=== PATIENT | female | born 1950 | race Caucasian/White ===

== ENCOUNTER 2022-04-20 11:22 | Day surgery (SDC) | payer MEDICARE ==
[2022-04-20] MEDS ORDERED: LIDOCAINE HCL/PF 3.5% OPTH GEL ONE (11:40)
[2022-04-20] MEDS ORDERED: NA CHLORIDE 0.9% 500 ML ONE (11:40)
[2022-04-20] MEDS ORDERED: MOXIFLOXACIN HCL 0.5% 3ML OPTH OPTH ONE (11:43)
[2022-04-20] MEDS: CYCLOPENTOLATE 1% OPTH 2 ML ONE ×3 (11:45→11:55)
[2022-04-20] MEDS: PHENYLEPHRINE 2.5% OPTH 2 ML ONE ×3 (11:45→11:55)
[2022-04-20] MEDS ORDERED: MOXIFLOXACIN HCL 10 DROPS/ML **OR USE OPTH ONE (12:24)
[2022-04-20] MEDS ORDERED: BSS OPTHALMIC SOL 15 ML OPTH ONE (12:24)
[2022-04-20] MEDS ORDERED: LIDOCAINE 1% MPF 2 ML AMPULE ONE (12:24)
[2022-04-20] MEDS ORDERED: EPINEPHRINE/PF 1 MG/ML AMP ONE (12:24)
[2022-04-20] MEDS ORDERED: DUOVISC 1 KIT OPTH ONE (12:25)
[2022-04-20] MEDS ORDERED: BALANCED SALT IRRIG PLAIN 500 ML IRR ONE (12:25)
[2022-04-20] MEDS ORDERED: POVIDONE-IODINE 5% EYE DROPS ONE (12:26)
[2022-04-20] MEDS ORDERED: LIDOCAINE 2%-JELLY **30 ML TUBE TOP ONE (12:45)
[2022-04-20] MEDS ORDERED: FENTANYL CITR 100 MCG/2 ML ONE (12:56)
[2022-04-20 14:08] VITALS: BP 149/62; TEMP 96.3; O2SAT 99
--- NOTE | 2022-04-21 00:14 | OP ---
Date of Procedure: 04/20/2022 Surgeon: Carolin Hawkins MD Anesthesiologist: Zita Marte CRNA and Sagar Melendez MD - Anesthesia for Cataract Surgery Preoperative Diagnosis: Combined form of cataract, left eye. Operation Performed: Phacoemulsification with intraocular lens implant, left eye. Anesthesia: Topical anesthesia. Complications: None. Description Of Procedure: In the operating room the patient was prepped and draped in the usual sterile fashion for ophthalmic surgery. A lid speculum was placed in the left eye. Two paracentesis sites were made superiorly and inferiorly in the limbal cornea. Lidocaine 1% preservative free then Viscoat were placed in the anterior chamber. A keratome was used to enter the anterior chamber. A 360 degree capsulotomy was performed with utrata forceps. The lens was hydrodissected with BSS and rotated freely. The lens was removed with a chop technique. 2.84 phaco CDE was used to remove the lens. Residual cortex was removed with the irrigation and aspiration. Provisc was placed in the capsular bag. A DCB00 +23.5 lens was placed in the capsular bag without complications. Irrigation and aspiration was used to remove residual viscoelastic. The paracentesis sites were hydrated with BSS. The wound and paracentesis sites were inspected and found to be watertight. Vigamox 0.07 cc was placed intracamerally at the end of the procedure. The eye was irrigated with balanced salt solution. The eye was patched with a soft cotton patch and Hall metal shield. The patient was returned to day surgery in good condition. Comments: Discharge Instructions: Ms. Brown is discharged to home in good condition and is to follow up with Dr. Hawkins this afternoon in the office and then in the morning. VIRA/THEODORE Voice ID: [id number] Report ID: [id number]
== END 2022-04-20 13:58 | disposition home or self-care (01) ==
LOC: OR 11:22
PROVIDERS: ATTEND Ophthalmology Retina Specialist
PROC: 08RK3JZ Replacement of Left Lens with Synthetic Substitute, Percutaneous Approach (ICD-10-PCS; principal; 2022-04-20 13:00)
DX: H25.812 Combined forms of age-related cataract, left eye (principal); Z20.822 Contact with and (suspected) exposure to COVID-19
CPT/HCPCS: 82947; 66984; U0003; J0171; J3010; J7040

== ENCOUNTER 2024-01-31 14:46 | Emergency (ER) | payer MEDICARE ==
--- OUTSIDE RECORDS SUMMARY | 2024-01-31 14:54 | XMS REPORT | Continuity of Care Document ---
Author Name Unknown Address [address] [facility] [address] [place] [address] [facility] Address [address] [facility] [address] [place] [address] Care Team Providers Care Shop Estimator Name Role Phone BRENDA BLANTON Primary Care Physician Unavailab Brenda Araya Attending Clinician Unavailable KUSHAL RIVAS Attending Clinician Unavailable [email or web address] Attending Clinician Unavaila Kushal Skelton DDS Attending Clinician [phone] Keith Benites RN Attending Clinician Unavail able RADHA MURRIETA Attending Clinician Unavailable Radha Murrieta MD Attending Clinician [phone] Doctor Unassigned, Sublimity Attending Clinician U MELINDA Torres Attending Clinician UnavailMelinda York Attending Clinician [phone] Evelyn Hanson Attending Clinician [phone] Ogbechie_L Attending Clinician Unavailable OLEGARIO CASTILLO Attending Clinician Unavailable Olegario Castillo NP Attending Clinician [phone] LARRY_R Attending Clinician Unavailable Jelani Juarez Attending Clinician [phone] Jonn Craft Attending Clinician [phone] CÉSAR RODRIGUEZ M.D. Attending Clinician U KUSHAL [place] Admitting Clinician Unavailable [email or web address] Admitting Clinician Unavaila myranda Rivas DDS, [facility] Admitting Clinician [phone] MELINDA FLORES Admitting Clinician Unavaila ble Valentin_L Admitting Clinician Unavailable OLEGARIO CASTILLO Admitting Clinician Unavailable LAVERNE Admitting Clinician Unavailable Payers Payer Name Policy Type Policy Number Effective Date Expirati on Date Source [facility] MEDICARE ADVANTAGE PLAN [id number] 2022 00:00:00 [facility] (MEDICARE REPLACEMENT HMO) [id number] 2022 00:00:00 [employer] - MEDICARE COMPLETE (MEDICARE REPLACEMENT HMO) [id number] Problems Condition Name Condition Details Condition Category Status Onset Date Resolution Date Last Treatment Date Treating Clinician Comments Source Skin lesion of scalp Skin lesion of scalp Disease Active 04-13 00:00: 00 Overview: Formattin g of this note might be different from the original. Added automatic ally from request for surgery [id number] [facility] Scalp mass Scalp mass Disease Active 04-01 00:00: 00 [facility] Sublingual abscess Sublingual abscess Disease Active 03-30 00:00: 00 [facility] Generalize d osteoarthr itis of hand Generalize d osteoarthr itis of hand Disease Active 01-07 00:00: 00 [facility] Osteochond shaista Osteochond shaista Problem [facility] Arthritis of left knee Arthritis of Left Knee Problem Active 06-13 00:00: 00 [place] [facility] Mixed anxiety and depressive disorder Mixed Anxiety and Depressive Disorder Problem Active 2018-11 00:00: 00 [facility] Hypertensi ve disorder Hypertensi ve Disorder Problem Active 2018-11 00:00: 00 [facility] No known active problems No known active problems Disease [facility] [id number] Diabetic polyneurop athy associated with type 2 diabetes mellitus Problem [facility] [id number] Reactive depression Problem [facility] Atrophy of vagina Atrophy of vagina Problem [facility] [id number] Mixed stress and urge urinary incontinen ce Problem [facility] [id number] Body mass index (BMI) of 40.1 to 44.9 in adult Problem [facility] [id number] Allergic rhinitis, unspecifie d seasonalit y, unspecifie d trigger Problem [facility] [id number] History of squamous cell carcinoma of skin Problem [facility] [id number] Sleep disorder Problem [facility] [id number] Fatigue, unspecifie d type Problem [facility] [id number] Mixed hyperlipid emia Problem [facility] [id number] Essential (primary) hypertensi on Problem [facility] [id number] Anxiety Problem [facility] [id number] Type 2 diabetes mellitus with hyperglyce shira, without long-term current use of insulin Problem [facility] [id number] Other chronic pain Problem [facility] [id number] Low back pain Problem [facility] [id number] Morbid (severe) obesity due to excess calories Problem [facility] [id number] 05 Type 2 diabetes mellitus with diabetic chronic kidney disease Problem [facility] [id number] Chronic kidney disease, stage 3 unspecifie d Problem [facility] History of arthritis [facility] of back pain History of back pain [facility] History of gallbladde r disease History of gallbladde r disease Problem [facility] History of Hernia History of Hernia Problem [facility] History of pneumonia History of pneumonia [facility] History of staphyloco ccal infection History of staphyloco ccal infection Problem [facility] History of Tumors History of Tumors [facility] Left knee pain Left knee pain Problem [facility] Primary localized osteoarthr itis of left knee Primary localized osteoarthr itis of left knee Problem [facility] Allergies, Adverse Reactions, Alerts Allergy Name Allergy Type Status Severity Reaction(s) Onset Date Inactive Date Treating Clinician Comments Source CODEINE DRUG INGREDI Active Unknown-Cmnt 06-13 00:00: 00 [facility] Codeine Drug Allergy Active Unknown - See comments 06-13 00:00: 00 [facility] Meperidi ne Hcl Propensi ty to adverse reaction s Active Nausea and/or Vomiting 07-24 00:00: 00 [facility] MEPERIDI NE HCL DRUG INGREDI Active N/V 07-24 00:00: 00 [facility] PENICILL IN DRUG INGREDI Active Rash 07-24 00:00: 00 [facility] Penicill in Propensi ty to adverse reaction s Active Rash 07-24 00:00: 00 [facility] Penicill in Penicill in Active Unknown [facility] meperidi ne meperidi ne Active Unknown [facility] Demerol Allergy to substanc e Active [facility] PENICILL INS Allergy to substanc e Active [facility] Codeine Allergy to substanc e Active [facility] ibuprofe n drug allergy [facility] Penicill ins drug allergy Active [facility] Social History Social Habit Start Date Stop Date Quantity Comments Source History SDOH Alcohol Std Drinks [facility] History SDOH Alcohol Binge [facility] History SDOH Social Connections Get Together [facility] History SDOH Social Connections Religion [facility] History SDOH Social Connections Membership [facility] History SDOH Social Connections Meetings [facility] History of Tobacco Use [facility] Sex Assigned At [facility] History SDOH Alcohol Frequency 2023-03-31 00:00:00 2023-03-31 00:00:00 1 [facility] History SDOH Social Connections Phone 2023-03-31 00:00:00 2023-03-31 00:00:00 5 [facility] History SDOH Social Connections Living 2023-03-31 00:00:00 2023-03-31 00:00:00 4 [facility] History SDOH Physical Activity DPW 2023-03-31 00:00:00 2023-03-31 00:00:00 0 [facility] History SDOH Physical Activity MPS 2023-03-31 00:00:00 2023-03-31 00:00:00 0 [facility] History SDOH Financial 2023-03-31 00:00:00 2023-03-31 00:00:00 5 [facility] History SDOH Food Worry 2023-03-31 00:00:00 2023-03-31 00:00:00 1 [facility] History SDOH Food Scarcity 2023-03-31 00:00:00 2023-03-31 00:00:00 1 [facility] History SDOH Transport Med 2023-03-31 00:00:00 2023-03-31 00:00:00 2 [facility] History SDOH Transport Non-Med 2023-03-31 00:00:00 2023-03-31 00:00:00 2 [facility] History SDOH Housing Unable to Pay 2023-03-31 00:00:00 2023-03-31 00:00:00 2 [facility] History SDOH Housing Places Lived 2023-03-31 00:00:00 2023-03-31 00:00:00 1 [facility] History SDOH Housing Homeless Last Year 2023-03-31 00:00:00 2023-03-31 00:00:00 2 [facility] Exposure to SARS-CoV-2 (event) 2023-03-20 00:00:00 2023-03-30 22:18:00 Not sure [facility] Tobacco use and exposure 2023-03-30 00:00:00 2023-03-30 00:00:00 Smokeless tobacco non-user [facility] Smoking Status Start Date Stop Date Source Never smoked tobacco [facility] Tobacco smoking consumption unknown [facility] Medications Ordered Medication Name Filled Medication Name Start Date Stop Date Current Medication? Ordering Clinician Indication Dosage Frequency Signature (SIG) Comments Components Source Ozempic (1 MG/DOSE) 4 MG/3ML Ozempic (1 MG/DOSE) 4 MG/3ML 2022-11 0-18 00:00: 00 No Ozempic (1 MG/DOSE) 4 MG/3ML Ozempic (1 MG/DOSE) 4 MG/3ML Ozempic (1 MG/DOSE) 4 MG/3ML 2022-11 0-18 00:00: 00 No Ozempic (1 MG/DOSE) 4 MG/3ML Ozempic (1 MG/DOSE) 4 MG/3ML Ozempic (1 MG/DOSE) 4 MG/3ML 2022-11 0-18 00:00: 00 No Ozempic (1 MG/DOSE) 4 MG/3ML Ozempic (1 MG/DOSE) 4 MG/3ML Ozempic (1 MG/DOSE) 4 MG/3ML 1 0-18 00:00: 00 No Ozempic (1 MG/DOSE) 4 MG/3ML Ozempic (1 MG/DOSE) 4 MG/3ML Ozempic (1 MG/DOSE) 4 MG/3ML 2022-11 0-18 00:00: 00 No Ozempic (1 MG/DOSE) 4 MG/3ML Ozempic (1 MG/DOSE) 4 MG/3ML Ozempic (1 MG/DOSE) 4 MG/3ML 2022-1 0-18 00:00: 00 No Ozempic (1 MG/DOSE) 4 MG/3ML Ozempic (1 MG/DOSE) 4 MG/3ML Ozempic (1 MG/DOSE) 4 MG/3ML 1 0-18 00:00: 00 No Ozempic (1 MG/DOSE) 4 MG/3ML famotidine 20 mg tablet 2023-0 6-13 13:22: 22 Yes 1 tablet at bedtime as needed Orally Once a day [facility] hydrOXYzine 25 mg capsule 04-13 13:22: 22 Yes 1 capsule as needed Orally every 12 hrs PRN Itching [facility] famotidine 20 mg tablet 04-13 13:22: 22 Yes 1 tablet at bedtime as needed Orally Once a day [facility] hydrOXYzine 25 mg capsule 04-13 13:22: 22 Yes 1 capsule as needed Orally every 12 hrs PRN Itching [facility] metformin ER 750 mg 24 hr tablet 04-13 13:21: 43 Yes 1 tablet with evening meal Orally Once a day for 90 days [facility] metformin ER 750 mg 24 hr tablet 04-13 13:21: 43 Yes 1 tablet with evening meal Orally Once a day for 90 days [facility] carvediloL 6.25 mg tablet 04-13 13:21: 20 Yes carvedilol 6.25 mg tablet TAKE ONE TABLET BY MOUTH TWICE A DAY [facility] lisinopriL 40 mg tablet 04-13 13:21: 20 Yes lisinopril 40 mg tablet TAKE ONE TABLET BY MOUTH DAILY [facility] LORazepam 0.5 mg tablet 04-13 13:21: 20 Yes lorazepam 0.5 mg tablet PRN [facility] venlafaxine XR 75 mg 24 hr capsule 04-13 13:21: 20 Yes venlafaxin e ER 75 mg capsule,ex tended release 24 hr TAKE ONE CAPSULE BY MOUTH DAILY [facility] carvediloL 6.25 mg tablet 04-13 13:21: 20 Yes carvedilol 6.25 mg tablet TAKE ONE TABLET BY MOUTH TWICE A DAY [facility] lisinopriL 40 mg tablet 04-13 13:21: 20 Yes lisinopril 40 mg tablet TAKE ONE TABLET BY MOUTH DAILY [facility] LORazepam 0.5 mg tablet 04-13 13:21: 20 Yes lorazepam 0.5 mg tablet PRN [facility] venlafaxine XR 75 mg 24 hr capsule 04-13 13:21: 20 Yes venlafaxin e ER 75 mg capsule,ex tended release 24 hr TAKE ONE CAPSULE BY MOUTH DAILY [facility] amLODIPine (NORVASC) tablet 5 mg 04-04 14:00: 00 Yes 5mg 5 mg, Oral, DAILY, First dose on 04/04/23 at 0900, Until Discontinu ed, Routine [facility] carvediloL 6.25 mg tablet 04-03 16:57: 28 Yes carvedilol 6.25 mg tablet TAKE ONE TABLET BY MOUTH TWICE A DAY [facility] lisinopriL 40 mg tablet 04-03 16:57: 28 Yes lisinopril 40 mg tablet TAKE ONE TABLET BY MOUTH DAILY [facility] LORazepam 0.5 mg tablet 04-03 16:57: 28 Yes lorazepam 0.5 mg tablet PRN [facility] venlafaxine XR 75 mg 24 hr capsule 04-03 16:57: 28 Yes venlafaxin e ER 75 mg capsule,ex tended release 24 hr TAKE ONE CAPSULE BY MOUTH DAILY [facility] carvediloL 6.25 mg tablet 04-03 16:57: 28 Yes carvedilol 6.25 mg tablet TAKE ONE TABLET BY MOUTH TWICE A DAY [facility] lisinopriL 40 mg tablet 04-03 16:57: 28 Yes lisinopril 40 mg tablet TAKE ONE TABLET BY MOUTH DAILY [facility] LORazepam 0.5 mg tablet 04-03 16:57: 28 Yes lorazepam 0.5 mg tablet PRN [facility] venlafaxine XR 75 mg 24 hr capsule 04-03 16:57: 28 Yes venlafaxin e ER 75 mg capsule,ex tended release 24 hr TAKE ONE CAPSULE BY MOUTH DAILY [facility] vancomycin (VANCOCIN) 1,500 mg in NaCl 0.9% (NS) 500 mL VIAL-MATE IV piggyback 04-03 13:30: 00 04-07 01:29 :00 No 15mg/kg 1,500 mg (rounded from 1,701 mg = 15 mg/kg ?113.4 kg), IV Piggyback, Q12H ABX, 7 doses, First dose (after last reorder) on 04/03/23 at 0830, Last dose on Wed04/06/23 at 0830, Administer over 90 Minutes, 500 mL
Reas on for Anti-Infec tive: Surgical Prophylaxi s
Surgi jesús Prophylaxi s: Oral and/or Maxillofac ial
Dur ation of therapy: within 24 hours of surgery [facility] KCL (KLOR-CON M20) tablet 40 mEq 04-03 13:00: 00 04-03 14:30 :00 No 40meq 40 mEq, Oral, ONCE, 1 dose, On Wed04/03/23 at 0800, Routine [facility] amLODIPine 5 mg tablet 04-03 00:00: 00 05-04 04:59 :00 No [id number] 5mg Take 1 tablet by mouth in the morning for 30 days. [facility] amLODIPine 5 mg tablet 04-03 00:00: 00 05-04 04:59 :00 No [id number] 5mg Take 1 tablet by mouth in the morning for 30 days. [facility] amLODIPine 5 mg tablet 04-03 00:00: 00 05-04 04:59 :00 No [id number] 5mg Take 1 tablet by mouth in the morning for 30 days. [facility] amLODIPine 5 mg tablet 04-03 00:00: 00 05-04 04:59 :00 No [id number] 5mg Take 1 tablet by mouth in the morning for 30 days. [facility] chlorhexidi ne 0.12 % mouthwash 04-03 00:00: 00 04-11 04:59 :00 No [id number] 15mL Swish and spit out 15 mL in the morning and 15 mL in the evening. Do all this for 7 days. [facility] clindamycin 300 mg capsule 04-03 00:00: 00 04-11 04:59 :00 No [id number] 300mg Take 1 capsule by mouth 4 (four) times daily for 7 days. [facility] metroNIDAZO LE (FLAGYL) 500 mg tablet 04-03 00:00: 00 04-11 04:59 :00 No [id number] 500mg Take 1 tablet by mouth every 12 (twelve) hours for 7 days. [facility] chlorhexidi ne 0.12 % mouthwash 04-03 00:00: 00 04-11 04:59 :00 No [id number] 15mL Swish and spit out 15 mL in the morning and 15 mL in the evening. Do all this for 7 days. [facility] clindamycin 300 mg capsule 04-03 00:00: 00 04-11 04:59 :00 No [id number] 300mg Take 1 capsule by mouth 4 (four) times daily for 7 days. [facility] metroNIDAZO LE (FLAGYL) 500 mg tablet 04-03 00:00: 00 04-11 04:59 :00 No [id number] 500mg Take 1 tablet by mouth every 12 (twelve) hours for 7 days. [facility] HYDROcodone -acetaminop hen 5-325 mg tablet 04-03 00:00: 00 04-08 04:59 :00 No [id number] 1{tbl} Take 1 tablet by mouth every 6 (six) hours as needed for Pain (scale 7-10) for up to 4 days. Indication s: acute pain [facility] HYDROcodone -acetaminop hen 5-325 mg tablet 04-03 00:00: 00 04-08 04:59 :00 No [id number] 1{tbl} Take 1 tablet by mouth every 6 (six) hours as needed for Pain (scale 7-10) for up to 4 days. Indication s: acute pain [facility] carvedilol (COREG) 1.25 mg/mL oral suspension 6.25 mg 04-02 22:00: 00 Yes 6.25mg 6.25 mg, Oral, BID MEALS, First dose (after last modificati on) on Wed04/02/23 at 1700, Until Discontinu ed, Routine [facility] carvedilol (COREG) 1.25 mg/mL oral suspension 6.25 mg 04-02 22:00: 00 Yes 6.25mg 6.25 mg, Oral, BID MEALS, First dose (after last modificati on) on Wed04/02/23 at 1700, Until Discontinu ed, Routine [facility] lisinopriL (PRINIVIL,Z ESTRIL) tablet 40 mg 04-02 17:45: 00 Yes 40mg 40 mg, Oral, DAILY, First dose (after last modificati on) on Wed04/02/23 at 1245, Until Discontinu ed, Routine [facility] lisinopriL (PRINIVIL,Z ESTRIL) tablet 40 mg 04-02 17:45: 00 Yes 40mg 40 mg, Oral, DAILY, First dose (after last modificati on) on Wed04/02/23 at 1245, Until Discontinu ed, Routine [facility] iopamidol (ISOVUE 370-500 mL) injection 80 mL 04-01 23:00: 00 04-01 22:49 :00 No [id number] 80mL 80 mL, Intravenou s, ONCE, 1 dose, On Wed04/01/23 at 1800, Routine [facility] hydralAZINE (APRESOLINE ) injection 5 mg 04-01 22:03: 07 Yes 5mg 5 mg, Slow IV Push, Q4HPRN, Starting on Wed04/01/23 at 1703, Until Discontinu ed, Routine, DBP=>100; SBP=>180 [facility] hydralAZINE (APRESOLINE ) injection 5 mg 04-01 22:03: 07 Yes 5mg 5 mg, Slow IV Push, Q4HPRN, Starting on Wed04/01/23 at 1703, Until Discontinu ed, Routine, DBP=>100; SBP=>180 [facility] labetaloL (NORMODYNE) injection 20 mg 04-01 20:40: 00 04-01 20:44 :00 No 20mg 20 mg, Slow IV Push, ONCE, 1 dose, On Wed04/01/23 at 1545, NILS [facility] HYDROcodone -acetaminop hen (NORCO 5) 5-325 mg tablet 1 tablet 04-01 19:45: 00 04-01 21:00 :00 No 1{tbl} 1 tablet, Oral, ONCE, 1 dose, On Wed04/01/23 at 1445, Routine, PACU [facility] FENTanyl PF (SUBLIMAZE (PF)) injection 25 mcg 04-01 19:32: 39 04-01 20:30 :00 No 25ug 25 mcg, Slow IV Push, Q5MIN PRN, 4 doses, Starting on Wed04/01/23 at 1432, Until Wed04/01/23 at 1530, Routine, Pain (scale 4-6), PACU [facility] carvedilol (COREG) 1.25 mg/mL oral suspension 12.5 mg 03-31 22:00: 00 04-02 17:42 :31 No 12.5mg 12.5 mg, Oral, BID MEALS, First dose (after last modificati on) on Wed03/31/23 at 1700, Until Discontinu ed, Routine [facility] proMETHazin e (PHENERGAN) 12.5 mg in NS 50 mL IV piggyback (CNR) 03-31 17:41: 46 Yes 12.5mg 12.5 mg, IV Piggyback, at 200 mL/hr Administer over 15 Minutes, Q4HPRN, Starting on Wed03/31/23 at 1241, Until Discontinu ed, Routine, N/V unresponsi ve to Ondansetro n [facility] proMETHazin e (PHENERGAN) 12.5 mg in NS 50 mL IV piggyback (CNR) 03-31 17:41: 46 Yes 12.5mg 12.5 mg, IV Piggyback, at 200 mL/hr Administer over 15 Minutes, Q4HPRN, Starting on Wed03/31/23 at 1241, Until Discontinu ed, Routine, N/V unresponsi ve to Ondansetro n [facility] venlafaxine XR (EFFEXOR XR) 24 hr capsule 37.5 mg 03-31 13:00: 00 Yes 37.5mg 37.5 mg, Oral, QAM WITH BREAKFAST, First dose on Wed03/31/23 at 0800, Until Discontinu ed, Routine [facility] venlafaxine XR (EFFEXOR XR) 24 hr capsule 37.5 mg 03-31 13:00: 00 Yes 37.5mg 37.5 mg, Oral, QAM WITH BREAKFAST, First dose on Wed03/31/23 at 0800, Until Discontinu ed, Routine [facility] metroNIDAZO LE in NaCl (iso-os) (FLAGYL I.V.) RTU IV infusion 500 mg 03-31 03:30: 00 04-07 03:29 :00 No 500mg 500 mg, IV Infusion, Q8H ABX, 21 doses, First dose (after last modificati on) on Wed03/30/23 at 2230, Last dose on Wed04/06/23 at 1430, Administer over 60 Minutes, 100 mL
Reas on for Anti-Infec tive: Surgical Prophylaxi s
Surgi jesús Prophylaxi s: Oral and/or Maxillofac ial
Dur ation of therapy: within 24 hours of surgery [facility] metroNIDAZO LE in NaCl (iso-os) (FLAGYL I.V.) RTU IV infusion 500 mg 03-31 03:30: 00 04-07 03:29 :00 No 500mg 500 mg, IV Infusion, Q8H ABX, 21 doses, First dose (after last modificati on) on Wed03/30/23 at 2230, Last dose on Wed04/06/23 at 1430, Administer over 60 Minutes, 100 mL
Reas on for Anti-Infec tive: Surgical Prophylaxi s
Surgi jesús Prophylaxi s: Oral and/or Maxillofac ial
Dur ation of therapy: within 24 hours of surgery [facility] atorvastati n (LIPITOR) tablet 10 mg 03-31 02:00: 00 Yes 10mg 10 mg, Oral, QHS, First dose on Wed03/30/23 at 2100, Until Discontinu ed, Routine [facility] atorvastati n (LIPITOR) tablet 10 mg 03-31 02:00: 00 Yes 10mg 10 mg, Oral, QHS, First dose on Wed03/30/23 at 2100, Until Discontinu ed, Routine [facility] gabapentin (NEURONTIN) capsule 300 mg 03-31 01:00: 00 Yes 300mg 300 mg, Oral, TID, First dose on Wed03/30/23 at 2000, Until Discontinu ed, Routine [facility] gabapentin (NEURONTIN) capsule 300 mg 03-31 01:00: 00 Yes 300mg 300 mg, Oral, TID, First dose on Wed03/30/23 at 2000, Until Discontinu ed, Routine [facility] vancomycin (VANCOCIN) 1,500 mg in NaCl 0.9% (NS) 500 mL VIAL-MATE IV piggyback 03-31 00:30: 00 04-03 12:29 :00 No 15mg/kg 1,500 mg (rounded from 1,701 mg = 15 mg/kg ?113.4 kg), IV Piggyback, Q12H ABX, 7 doses, First dose (after last modificati on) on Wed03/30/23 at 1930, Last dose on Wed04/02/23 at 1930, Administer over 90 Minutes, 500 mL
Reas on for Anti-Infec tive: Surgical Prophylaxi s
Surgi jesús Prophylaxi s: Oral and/or Maxillofac ial
Dur ation of therapy: within 24 hours of surgery [facility] vancomycin (VANCOCIN) 1,500 mg in NaCl 0.9% (NS) 500 mL VIAL-MATE IV piggyback 03-31 00:30: 00 04-03 02:25 :00 No 15mg/kg 1,500 mg (rounded from 1,701 mg = 15 mg/kg ?113.4 kg), IV Piggyback, Q12H ABX, 7 doses, First dose (after last modificati on) on Wed03/30/23 at 1930, Last dose on Wed04/02/23 at 1930, Administer over 90 Minutes, 500 mL
Reas on for Anti-Infec tive: Surgical Prophylaxi s
Surgi jesús Prophylaxi s: Oral and/or Maxillofac ial
Dur ation of therapy: within 24 hours of surgery [facility] lactated ringers IV infusion 1,000 mL 03-30 22:15: 00 Yes 1000mL at 42 mL/hr, 1,000 mL, IV Infusion, CONTINUOUS , Starting on Wed03/30/23 at 1715, Until Discontinu ed, Routine [facility] lactated ringers IV infusion 1,000 mL 03-30 22:15: 00 04-03 12:07 :04 No 1000mL at 42 mL/hr, 1,000 mL, IV Infusion, CONTINUOUS , Starting on Wed03/30/23 at 1715, Until Wed04/03/23 at 0707, Routine [facility] Sliding Scale Insulin - Lispro (HumaLOG) 03-30 22:00: 00 Yes Subcutaneo us, TID MEALS+HS, First dose on Wed03/30/23 at 1700, Until Discontinu ed, Routine [facility] enoxaparin (LOVENOX) injection 40 mg 03-30 22:00: 00 Yes 40mg 40 mg, Subcutaneo us, DAILY, First dose on Wed03/30/23 at 1700, Until Discontinu ed, Routine [facility] Sliding Scale Insulin - Lispro (HumaLOG) 03-30 22:00: 00 Yes Subcutaneo us, TID MEALS+HS, First dose on Wed03/30/23 at 1700, Until Discontinu ed, Routine [facility] enoxaparin (LOVENOX) injection 40 mg 03-30 22:00: 00 Yes 40mg 40 mg, Subcutaneo us, DAILY, First dose on Wed03/30/23 at 1700, Until Discontinu ed, Routine [facility] carvedilol (COREG) 1.25 mg/mL oral suspension 6.25 mg 03-30 22:00: 00 03-31 15:41 :33 No 6.25mg 6.25 mg, Oral, BID MEALS, First dose on Wed03/30/23 at 1700, Until Discontinu ed, Routine [facility] dextrose 10% (D10W) bolus infusion 250 mL 03-30 19:10: 15 Yes 250mL 250 mL, IV Infusion, PRN - SEE INSTRUCTIO NS, Administer over 60 Minutes, Other, If blood glucose is < or = 70 mg/dL and patient is unable to swallow or has mental status changes, Starting on Wed03/30/23 at 1410
If blood glucose is < or = 70 mg/dL and patient is unable to swallow or has mental status changes (Give glucagon order if patient needs fluid restrictio n): IF IV access available: Dextrose 10%. 1. 125 mL (? bag) of D10W IV infusion - equivalent to 12.5 g dextrose 2. Blood glucose - draw blood glucose 15 minutes after D10W Administra tion. 3. If blood glucose is < 80 mg/dL, repeat.
[facility] dextrose 10% (D10W) bolus infusion 250 mL 03-30 19:10: 15 Yes 250mL 250 mL, IV Infusion, PRN - SEE INSTRUCTIO NS, Administer over 60 Minutes, Other, If blood glucose is < or = 70 mg/dL and patient is unable to swallow or has mental status changes, Starting on Wed03/30/23 at 1410
If blood glucose is < or = 70 mg/dL and patient is unable to swallow or has mental status changes (Give glucagon order if patient needs fluid restrictio n): IF IV access available: Dextrose 10%. 1. 125 mL (? bag) of D10W IV infusion - equivalent to 12.5 g dextrose 2. Blood glucose - draw blood glucose 15 minutes after D10W Administra tion. 3. If blood glucose is < 80 mg/dL, repeat.
[facility] glucagon (GLUCAGEN DIAGNOSTIC KIT) injection 1 mg 03-30 19:10: 12 Yes 1mg 1 mg, Intramuscu lar, PRN, Starting on Wed03/30/23 at 1410, Until Discontinu ed, NILS, Blood Glucose < or = 70 mg/dL and patient is NPO, unable to swallow or has mental changes. [facility] glucagon (GLUCAGEN DIAGNOSTIC KIT) injection 1 mg 03-30 19:10: 12 Yes 1mg 1 mg, Intramuscu lar, PRN, Starting on Wed03/30/23 at 1410, Until Discontinu ed, NILS, Blood Glucose < or = 70 mg/dL and patient is NPO, unable to swallow or has mental changes. [facility] carvediloL 6.25 mg tablet 03-30 19:02: 41 Yes carvedilol 6.25 mg tablet TAKE ONE TABLET BY MOUTH TWICE A DAY [facility] lisinopriL 40 mg tablet 03-30 19:02: 41 Yes lisinopril 40 mg tablet TAKE ONE TABLET BY MOUTH DAILY [facility] LORazepam 0.5 mg tablet 03-30 19:02: 41 Yes lorazepam 0.5 mg tablet PRN [facility] venlafaxine XR 75 mg 24 hr capsule 03-30 19:02: 41 Yes venlafaxin e ER 75 mg capsule,ex tended release 24 hr TAKE ONE CAPSULE BY MOUTH DAILY [facility] pantoprazol e (PROTONIX) EC tablet 40 mg 03-30 14:00: 00 Yes 40mg 40 mg, Oral, DAILY, First dose on Wed03/30/23 at 0900, Until Discontinu ed, Routine [facility] pantoprazol e (PROTONIX) EC tablet 40 mg 03-30 14:00: 00 Yes 40mg 40 mg, Oral, DAILY, First dose on Wed03/30/23 at 0900, Until Discontinu ed, Routine [facility] chlorhexidi ne (PERIDEX) 0.12 % mouthwash 15 mL 03-30 13:00: 00 Yes 15mL 15 mL, Oral (Swish And Spit Out), BID, First dose on Wed03/30/23 at 0800, Until Discontinu ed, Routine [facility] chlorhexidi ne (PERIDEX) 0.12 % mouthwash 15 mL 03-30 13:00: 00 Yes 15mL 15 mL, Oral (Swish And Spit Out), BID, First dose on Wed03/30/23 at 0800, Until Discontinu ed, Routine [facility] ondansetron (ZOFRAN (PF)) injection 4 mg 03-30 11:56: 18 Yes 4mg 4 mg, Slow IV Push, Q6HPRN, Nausea and Vomiting (N/V), Starting on Wed03/30/23 at 0656
Do ses of ondansetro n 16 mg and above need to be administer ed via IV piggyback. For Dose >=24mg ECG monitoring is advisable.
[facility] ondansetron (ZOFRAN (PF)) injection 4 mg 03-30 11:56: 18 Yes 4mg 4 mg, Slow IV Push, Q6HPRN, Nausea and Vomiting (N/V), Starting on Wed03/30/23 at 0656
Do ses of ondansetro n 16 mg and above need to be administer ed via IV piggyback. For Dose >=24mg ECG monitoring is advisable.
[facility] metroNIDAZO LE in NaCl (iso-os) (FLAGYL I.V.) RTU IV infusion 500 mg 03-30 11:30: 00 03-30 22:12 :47 No 500mg 500 mg, IV Infusion, Q8H ABX, 3 doses, First dose on Wed03/30/23 at 0630, Last dose on Wed03/30/23 at 2230, Administer over 60 Minutes, 100 mL
Reas on for Anti-Infec tive: Surgical Prophylaxi s
[facility]ers rgical Prophylaxi s: Oral and/or Maxillofac ial
Dur ation of therapy: within 24 hours of surgery [facility] ibuprofen (ADVIL CHILDREN'S) 100 mg/5 mL oral suspension 600 mg 03-30 11:00: 00 03-30 22:12 :06 No 600mg 600 mg, Oral, Q6H, First dose on Wed03/30/23 at 0600, Until Discontinu ed, Routine [facility] HYDROcodone -acetaminop hen (NORCO 5) 5-325 mg tablet 1 tablet 03-30 10:47: 01 Yes 1{tbl} 1 tablet, Oral, Q6HPRN, Starting on Wed03/30/23 at 0547, Until Discontinu ed, Routine, Pain (scale 7-10) [facility] HYDROcodone -acetaminop hen (NORCO 5) 5-325 mg tablet 1 tablet 03-30 10:47: 01 Yes 1{tbl} 1 tablet, Oral, Q6HPRN, Starting on Wed03/30/23 at 0547, Until Discontinu ed, Routine, Pain (scale 7-10) [facility] lactated ringers IV infusion 1,000 mL 03-30 10:30: 00 03-30 22:13 :02 No 1000mL at 100 mL/hr, 1,000 mL, IV Infusion, CONTINUOUS , Starting on Wed03/30/23 at 0530, Until Wed03/30/23 at 1713, Routine [facility] acetaminoph en (TYLENOL) 160 mg/5 mL oral liquid 650 mg 03-30 10:23: 23 Yes 650mg 650 mg, Oral, Q6HPRN, Starting on Wed03/30/23 at 0523, Until Discontinu ed, Routine, Pain (scale 1-3) [facility] acetaminoph en (TYLENOL) 160 mg/5 mL oral liquid 650 mg 03-30 10:23: 23 Yes 650mg 650 mg, Oral, Q6HPRN, Starting on Wed03/30/23 at 0523, Until Discontinu ed, Routine, Pain (scale 1-3) [facility] cloNIDine (CATAPRES) tablet 0.2 mg 03-30 06:00: 00 03-30 05:53 :00 No .2mg 0.2 mg, Oral, ONCE, 1 dose, On Wed03/30/23 at 0100, STAT [facility] levoFLOXaci n in D5W (LEVAQUIN) 750 mg/150 mL Piggyback 750 mg 03-30 05:30: 00 03-30 06:44 :00 No 750mg 750 mg, IV Piggyback, ONCE, 1 dose, On Wed03/30/23 at 0030, Administer over 90 Minutes, 150 mL
Reas on for Anti-Infec tive: Documented Infection< br>Documen maura Infection Site: HEENT
D uration of Therapy: Other (see Comments) [facility] iopamidol (ISOVUE 370-500 mL) injection 80 mL 03-30 04:45: 00 03-30 03:47 :00 No [id number] 80mL 80 mL, Intravenou s, ONCE, 1 dose, On Wed03/29/23 at 2345, Routine [facility] HYDROcodone -acetaminop hen (NORCO 5) 5-325 mg tablet 1 tablet 03-30 02:45: 00 03-30 02:51 :00 No 1{tbl} 1 tablet, Oral, ONCE, 1 dose, On Wed03/29/23 at 2145, NILS [facility] acetaminoph en (TYLENOL) tablet 1,000 mg 12-17 23:00: 00 12-17 21:59 :00 No 1000mg 1,000 mg, Oral, ONCE, 1 dose, On Floridalma 12/17/22 at 1700, Routine [facility] traMADoL 50 mg tablet 3-0 2-16 00:00: 00 Yes [id number] 50mg Take 1 tablet by mouth every 8 (eight) hours as needed for Pain (scale 7-10). Indication s: acute pain [facility] ibuprofen 600 mg tablet 3-0 2-16 00:00: 00 Yes [id number] 3 600mg Take 1 tablet by mouth every 6 (six) hours as needed for Pain (scale 4-6). [facility] traMADoL 50 mg tablet 3-0 2-16 00:00: 00 Yes [id number] 50mg Take 1 tablet by mouth every 8 (eight) hours as needed for Pain (scale 7-10). Indication s: acute pain [facility] ibuprofen 600 mg tablet 3-0 2-16 00:00: 00 Yes [id number] 3 600mg Take 1 tablet by mouth every 6 (six) hours as needed for Pain (scale 4-6). [facility] traMADoL 50 mg tablet 3-0 2-16 00:00: 00 Yes [id number] 50mg Take 1 tablet by mouth every 8 (eight) hours as needed for Pain (scale 7-10). Indication s: acute pain [facility] ibuprofen 600 mg tablet 3-0 2-16 00:00: 00 Yes [id number] 3 600mg Take 1 tablet by mouth every 6 (six) hours as needed for Pain (scale 4-6). [facility] traMADoL 50 mg tablet 3-0 2-16 00:00: 00 Yes [id number] 50mg Take 1 tablet by mouth every 8 (eight) hours as needed for Pain (scale 7-10). Indication s: acute pain [facility] ibuprofen 600 mg tablet 3-0 2-16 00:00: 00 Yes [id number] 3 600mg Take 1 tablet by mouth every 6 (six) hours as needed for Pain (scale 4-6). [facility] traMADoL 50 mg tablet 2023-0 2-16 00:00: 00 Yes [id number] 50mg Take 1 tablet by mouth every 8 (eight) hours as needed for Pain (scale 7-10). Indication s: acute pain [facility] ibuprofen 600 mg tablet 3-0 2-16 00:00: 00 Yes [id number] 3 600mg Take 1 tablet by mouth every 6 (six) hours as needed for Pain (scale 4-6). [facility] traMADoL 50 mg tablet 3-0 2-16 00:00: 00 Yes [id number] 50mg Take 1 tablet by mouth every 8 (eight) hours as needed for Pain (scale 7-10). Indication s: acute pain [facility] ibuprofen 600 mg tablet 3-0 2-16 00:00: 00 Yes [id number] 3 600mg Take 1 tablet by mouth every 6 (six) hours as needed for Pain (scale 4-6). [facility] traMADoL 50 mg tablet 2022-0 2-16 00:00: 00 Yes [id number] 50mg Take 1 tablet by mouth every 8 (eight) hours as needed for Pain (scale 7-10). Indication s: acute pain [facility] ibuprofen 600 mg tablet 2022-0 2-16 00:00: 00 Yes [id number] 3 600mg Take 1 tablet by mouth every 6 (six) hours as needed for Pain (scale 4-6). [facility] traMADoL 50 mg tablet 3-0 2-16 00:00: 00 Yes [id number] 50mg Take 1 tablet by mouth every 8 (eight) hours as needed for Pain (scale 7-10). Indication s: acute pain [facility] ibuprofen 600 mg tablet 3-0 2-16 00:00: 00 Yes [id number] 3 600mg Take 1 tablet by mouth every 6 (six) hours as needed for Pain (scale 4-6). [facility] Gabapentin 300 MG Gabapentin 300 MG 2-0 9-08 00:00: 00 No 1{capsu le} TID Gabapentin 300 MG Gabapentin 300 MG Gabapentin 300 MG 2-0 8-23 00:00: 00 No 1{capsu le_as_n eeded} TID Gabapentin 300 MG Gabapentin 300 MG Gabapentin 300 MG 2022-0 8-23 00:00: 00 No 1{capsu le_as_n eeded} TID Gabapentin 300 MG Methocarbam ol 500 MG Methocarbam ol 500 MG 2-0 8-23 00:00: 00 07-07 00:00 :00 No 1{table t} Methocarba mol 500 MG methocarbam oL (ROBAXIN) tablet 1,500 mg 06-14 03:45: 00 06-14 02:57 :00 No 1500mg 1,500 mg, Oral, ONCE, 1 dose, On 06/13/22 at 2245, Routine [facility] ketorolac (TORADOL) injection 15 mg 06-14 03:07: 00 06-14 03:00 :00 No 15mg 15 mg, Slow IV Push, ONCE, 1 dose, On 06/13/22 at 2215, Routine [facility] HYDROcodone -acetaminop hen (NORCO 5) 5-325 mg tablet 1 tablet 06-14 03:00: 00 06-14 02:57 :00 No 1{tbl} 1 tablet, Oral, ONCE, 1 dose, On 06/13/22 at 2200, NILS [facility] FENTanyl PF (SUBLIMAZE (PF)) injection 25 mcg 06-14 03:00: 00 06-14 03:00 :00 No 25ug 25 mcg, Slow IV Push, ONCE, 1 dose, On 06/13/22 at 2200, STAT [facility] gabapentin (NEURONTIN) capsule 300 mg 06-14 03:00: 00 06-14 02:57 :00 No 300mg 300 mg, Oral, ONCE, 1 dose, On 06/13/22 at 2200, NILS [facility] dexamethaso ne sod phos PF injection 10 mg 06-14 03:00: 00 06-14 03:00 :00 No 10mg 10 mg, Slow IV Push, ONCE, 1 dose, On 06/13/22 at 2200, 1 mL [facility] methylPREDN ISolone 4 mg tablets 06-14 00:00: 00 Yes [id number] Take by mouth SEE-INSTRU CTIONS. follow package directions [facility] methylPREDN ISolone 4 mg tablets -14 00:00: 00 Yes [id number] Take by mouth SEE-INSTRU CTIONS. follow package directions [facility] methylPREDN ISolone 4 mg tablets 06-14 00:00: 00 Yes [id number] Take by mouth SEE-INSTRU CTIONS. follow package directions [facility] methylPREDN ISolone 4 mg tablets 06-14 00:00: 00 Yes [id number] Take by mouth SEE-INSTRU CTIONS. follow package directions [facility] methylPREDN ISolone 4 mg tablets 0 06-14 00:00: 00 Yes [id number] Take by mouth SEE-INSTRU CTIONS. follow package directions [facility] methylPREDN ISolone 4 mg tablets 06-14 00:00: 00 Yes [id number] Take by mouth SEE-INSTRU CTIONS. follow package directions [facility] methylPREDN ISolone 4 mg tablets 06-14 00:00: 00 Yes [id number] Take by mouth SEE-INSTRU CTIONS. follow package directions [facility] methylPREDN ISolone 4 mg tablets 06-14 00:00: 00 Yes [id number] Take by mouth SEE-INSTRU CTIONS. follow package directions [facility] methylPREDN ISolone 4 mg tablets 06-14 00:00: 00 Yes [id number] Take by mouth SEE-INSTRU CTIONS. follow package directions [facility] LORazepam 0.5 mg tablet 06-13 20:49: 32 Yes lorazepam 0.5 mg tablet PRN [facility] venlafaxine XR 75 mg 24 hr capsule 06-13 20:49: 32 Yes venlafaxin e ER 75 mg capsule,ex tended release 24 hr TAKE ONE CAPSULE BY MOUTH DAILY [facility] LORazepam 0.5 mg tablet 06-13 20:49: 32 Yes lorazepam 0.5 mg tablet PRN [facility] venlafaxine XR 75 mg 24 hr capsule 06-13 20:49: 32 Yes venlafaxin e ER 75 mg capsule,ex tended release 24 hr TAKE ONE CAPSULE BY MOUTH DAILY [facility] LORazepam 0.5 mg tablet 06-13 20:49: 32 Yes lorazepam 0.5 mg tablet PRN [facility] venlafaxine XR 75 mg 24 hr capsule 06-13 20:49: 32 Yes venlafaxin e ER 75 mg capsule,ex tended release 24 hr TAKE ONE CAPSULE BY MOUTH DAILY [facility] LORazepam 0.5 mg tablet 06-13 20:49: 32 Yes lorazepam 0.5 mg tablet PRN [facility] venlafaxine XR 75 mg 24 hr capsule 06-13 20:49: 32 Yes venlafaxin e ER 75 mg capsule,ex tended release 24 hr TAKE ONE CAPSULE BY MOUTH DAILY [facility] carvediloL 6.25 mg tablet 06-13 20:49: 31 Yes carvedilol 6.25 mg tablet TAKE ONE TABLET BY MOUTH TWICE A DAY [facility] lisinopriL 40 mg tablet 06-13 20:49: 31 Yes lisinopril 40 mg tablet TAKE ONE TABLET BY MOUTH DAILY [facility] carvediloL 6.25 mg tablet 06-13 20:49: 31 Yes carvedilol 6.25 mg tablet TAKE ONE TABLET BY MOUTH TWICE A DAY [facility] lisinopriL 40 mg tablet 06-13 20:49: 31 Yes lisinopril 40 mg tablet TAKE ONE TABLET BY MOUTH DAILY [facility] carvediloL 6.25 mg tablet 06-13 20:49: 31 Yes carvedilol 6.25 mg tablet TAKE ONE TABLET BY MOUTH TWICE A DAY [facility] lisinopriL 40 mg tablet 06-13 20:49: 31 Yes lisinopril 40 mg tablet TAKE ONE TABLET BY MOUTH DAILY [facility] carvediloL 6.25 mg tablet 06-13 20:49: 31 Yes carvedilol 6.25 mg tablet TAKE ONE TABLET BY MOUTH TWICE A DAY [facility] lisinopriL 40 mg tablet 2-0 8-13 20:49: 31 Yes lisinopril 40 mg tablet TAKE ONE TABLET BY MOUTH DAILY [facility] gabapentin 300 mg capsule 2-0 8-13 00:00: 00 Yes [id number] 300mg Take 1 capsule by mouth 3 (three) times daily as needed for Other (nerve pain down leg). [facility] gabapentin 300 mg capsule 2-0 8-13 00:00: 00 Yes [id number] 300mg Take 1 capsule by mouth 3 (three) times daily as needed for Other (nerve pain down leg). [facility] gabapentin 300 mg capsule 2-0 8-13 00:00: 00 Yes [id number] 300mg Take 1 capsule by mouth 3 (three) times daily as needed for Other (nerve pain down leg). [facility] gabapentin 300 mg capsule 2-0 8-13 00:00: 00 Yes [id number] 300mg Take 1 capsule by mouth 3 (three) times daily as needed for Other (nerve pain down leg). [facility] gabapentin 300 mg capsule 2-0 8-13 00:00: 00 Yes [id number] 300mg Take 1 capsule by mouth 3 (three) times daily as needed for Other (nerve pain down leg). [facility] gabapentin 300 mg capsule 2-0 8-13 00:00: 00 Yes [id number] 300mg Take 1 capsule by mouth 3 (three) times daily as needed for Other (nerve pain down leg). [facility] gabapentin 300 mg capsule 2-0 8-13 00:00: 00 Yes [id number] 300mg Take 1 capsule by mouth 3 (three) times daily as needed for Other (nerve pain down leg). [facility] gabapentin 300 mg capsule 2-0 8-13 00:00: 00 Yes [id number] 300mg Take 1 capsule by mouth 3 (three) times daily as needed for Other (nerve pain down leg). [facility] gabapentin 300 mg capsule 2-0 8-13 00:00: 00 Yes [id number] 300mg Take 1 capsule by mouth 3 (three) times daily as needed for Other (nerve pain down leg). [facility] naproxen 500 mg tablet 06-13 00:00: 00 06-21 04:59 :00 No [id number] 500mg Take 1 tablet by mouth in the morning and 1 tablet in the evening. Take with meals. Do all this for 7 days. [facility] methocarbam oL 500 mg tablet 06-13 00:00: 00 06-19 04:59 :00 No [id number] 1000mg Take 2 tablets by mouth 4 (four) times daily for 5 days. [facility] levoFLOXaci n 750 mg tablet 06-13 00:00: 00 06-17 04:59 :00 No [id number] 750mg Take 1 tablet by mouth every 24 (twenty-fo ur) hours for 3 days. [facility] levoFLOXaci n (LEVAQUIN) tablet 750 mg 06-17 05:45: 00 Yes 750mg 750 mg, Oral, Q24H ABX, First dose on 06/17/19 at 0045, Until Discontinu ed, NILS
Re ason for Anti-Infec tive: Documented Infection< br>Documen maura Infection Site: Urine
D uration of Therapy: Other (see Comments) [facility] phenazopyri dine 200 mg tablet 06-16 00:00: 00 Yes [id number] 200mg Take 1 tablet by mouth 3 (three) times daily. [facility] phenazopyri dine 200 mg tablet 06-16 00:00: 00 06-13 00:00 :00 No [id number] 200mg Take 1 tablet by mouth 3 (three) times daily. [facility] Nitrofurant oin&Nit. Macrocryst (MACROBID) 100 mg capsule 06-16 00:00: 00 06-27 04:59 :00 No [id number] 100mg Take 1 capsule by mouth 2 (two) times daily for 10 days. [facility] acetaminoph en-codeine 300-30 mg tablet 2016-11 00:00: 00 Yes 1{tbl} Take 1 tablet by mouth every 4 (four) hours as needed for Pain (scale 4-6). [facility] acetaminoph en-codeine 300-30 mg tablet 2016-11 00:00: 00 06-13 00:00 :00 No 1{tbl} Take 1 tablet by mouth every 4 (four) hours as needed for Pain (scale 4-6). [facility] sod chlor-bicar b-squeez bottle (NEILMED SINUS RINSE COMPLETE) [facility] 07-24 00:00: 00 Yes 1{bottl e} Use 1 Bottle in each nostril 2 (two) times daily. Use in hot shower 1 hour before bedtime [facility] loratadine 10 mg tablet 07-24 00:00: 00 Yes 10mg Take 1 tablet by mouth daily. [facility] loratadine 10 mg tablet 07-24 00:00: 00 06-13 00:00 :00 No 10mg Take 1 tablet by mouth daily. [facility] sod chlor-bicar b-squeez bottle (NEILMED SINUS RINSE COMPLETE) [facility] 07-24 00:00: 00 06-13 00:00 :00 No 1{bottl e} Use 1 Bottle in each nostril 2 (two) times daily. Use in hot shower 1 hour before bedtime [facility] hydrOXYzine Pamoate 25 MG hydrOXYzine Pamoate 25 MG No 1{capsu le_as_n eeded} hydrOXYzin e Pamoate 25 MG Tylenol Arthritis Pain Tylenol Arthritis Pain No Tylenol Arthritis Pain Ibuprofen 600 MG Ibuprofen 600 MG No TID Ibuprofen 600 MG Effexor XR 75 MG Effexor XR 75 MG No 1{capsu le_with _food} QD Effexor XR 75 MG Ibuprofen 600 MG Ibuprofen 600 MG No TID Ibuprofen 600 MG hydrOXYzine Pamoate 25 MG hydrOXYzine Pamoate 25 MG No hydrOXYzin e Pamoate 25 MG Gabapentin 300 MG Gabapentin 300 MG No 1{capsu le} TID Gabapentin 300 MG Ozempic (1 MG/DOSE) 4 MG/3ML Ozempic (1 MG/DOSE) 4 MG/3ML No Ozempic (1 MG/DOSE) 4 MG/3ML Loratadine 10 MG Loratadine 10 MG No 1{table t} QD Loratadine 10 MG Carvedilol 6.25 MG Carvedilol 6.25 MG No Carvedilol 6.25 MG Gabapentin 300 MG Gabapentin 300 MG No 1{capsu le} TID Gabapentin 300 MG Venlafaxine HCl ER 75 MG Venlafaxine HCl ER 75 MG No Venlafaxin e HCl ER 75 MG Lisinopril 40 MG Lisinopril 40 MG No Lisinopril 40 MG Atorvastati n Calcium 10 MG Atorvastati n Calcium 10 MG No Atorvastat in Calcium 10 MG hydrOXYzine Pamoate 25 MG hydrOXYzine Pamoate 25 MG No 1{capsu le_as_n eeded} hydrOXYzin e Pamoate 25 MG Tylenol Arthritis Pain Tylenol Arthritis Pain No Tylenol Arthritis Pain Famotidine 20 MG Famotidine 20 MG No 1{table t_at_be dtime_a s_neede d} QD Famotidine 20 MG Effexor XR 75 MG Effexor XR 75 MG No 1{capsu le_with _food} QD Effexor XR 75 MG Ibuprofen 600 MG Ibuprofen 600 MG No TID Ibuprofen 600 MG hydrOXYzine Pamoate 25 MG hydrOXYzine Pamoate 25 MG No hydrOXYzin e Pamoate 25 MG Gabapentin 300 MG Gabapentin 300 MG No 1{capsu le} TID Gabapentin 300 MG Ozempic (1 MG/DOSE) 4 MG/3ML Ozempic (1 MG/DOSE) 4 MG/3ML No Ozempic (1 MG/DOSE) 4 MG/3ML Loratadine 10 MG Loratadine 10 MG No 1{table t} QD Loratadine 10 MG Carvedilol 6.25 MG Carvedilol 6.25 MG No Carvedilol 6.25 MG Gabapentin 300 MG Gabapentin 300 MG No 1{capsu le} TID Gabapentin 300 MG Venlafaxine HCl ER 75 MG Venlafaxine HCl ER 75 MG No Venlafaxin e HCl ER 75 MG Lisinopril 40 MG Lisinopril 40 MG No Lisinopril 40 MG Atorvastati n Calcium 10 MG Atorvastati n Calcium 10 MG No Atorvastat in Calcium 10 MG hydrOXYzine Pamoate 25 MG hydrOXYzine Pamoate 25 MG No 1{capsu le_as_n eeded} hydrOXYzin e Pamoate 25 MG Tylenol Arthritis Pain Tylenol Arthritis Pain No Tylenol Arthritis Pain Famotidine 20 MG Famotidine 20 MG No 1{table t_at_be dtime_a s_neede d} QD Famotidine 20 MG Effexor XR 75 MG Effexor XR 75 MG No 1{capsu le_with _food} QD Effexor XR 75 MG Lisinopril 40 MG Lisinopril 40 MG No Lisinopril 40 MG Gabapentin 300 MG Gabapentin 300 MG No 1{capsu le} TID Gabapentin 300 MG Carvedilol 6.25 MG Carvedilol 6.25 MG No 1{table t_with_ food} BID Carvedilol 6.25 MG Famotidine 20 MG Famotidine 20 MG No 1{table t_at_be dtime_a s_neede d} QD Famotidine 20 MG Tylenol Arthritis Pain Tylenol Arthritis Pain No Tylenol Arthritis Pain Loratadine 10 MG Loratadine 10 MG No 1{table t} QD Loratadine 10 MG Carvedilol 6.25 MG Carvedilol 6.25 MG No Carvedilol 6.25 MG Lisinopril 40 MG Lisinopril 40 MG No 1{table t} QD Lisinopril 40 MG Atorvastati n Calcium 10 MG Atorvastati n Calcium 10 MG No Atorvastat in Calcium 10 MG Atorvastati n Calcium 10 MG Atorvastati n Calcium 10 MG No 1{table t} QD Atorvastat in Calcium 10 MG Ibuprofen 600 MG Ibuprofen 600 MG No TID Ibuprofen 600 MG Venlafaxine HCl ER 75 MG Venlafaxine HCl ER 75 MG No Venlafaxin e HCl ER 75 MG Ozempic (1 MG/DOSE) 4 MG/3ML Ozempic (1 MG/DOSE) 4 MG/3ML No Ozempic (1 MG/DOSE) 4 MG/3ML Effexor XR 75 MG Effexor XR 75 MG No 1{capsu le_with _food} QD Effexor XR 75 MG hydrOXYzine Pamoate 25 MG hydrOXYzine Pamoate 25 MG No 1{capsu le_as_n eeded} hydrOXYzin e Pamoate 25 MG Ozempic (1 MG/DOSE) 4 MG/3ML Ozempic (1 MG/DOSE) 4 MG/3ML No Ozempic (1 MG/DOSE) 4 MG/3ML Lisinopril 40 MG Lisinopril 40 MG No Lisinopril 40 MG Gabapentin 300 MG Gabapentin 300 MG No 1{capsu le} TID Gabapentin 300 MG Carvedilol 6.25 MG Carvedilol 6.25 MG No 1{table t_with_ food} BID Carvedilol 6.25 MG Famotidine 20 MG Famotidine 20 MG No 1{table t_at_be dtime_a s_neede d} QD Famotidine 20 MG Tylenol Arthritis Pain Tylenol Arthritis Pain No Tylenol Arthritis Pain Loratadine 10 MG Loratadine 10 MG No 1{table t} QD Loratadine 10 MG Carvedilol 6.25 MG Carvedilol 6.25 MG No Carvedilol 6.25 MG Lisinopril 40 MG Lisinopril 40 MG No 1{table t} QD Lisinopril 40 MG Atorvastati n Calcium 10 MG Atorvastati n Calcium 10 MG No Atorvastat in Calcium 10 MG Atorvastati n Calcium 10 MG Atorvastati n Calcium 10 MG No 1{table t} QD Atorvastat in Calcium 10 MG Ibuprofen 600 MG Ibuprofen 600 MG No TID Ibuprofen 600 MG Venlafaxine HCl ER 75 MG Venlafaxine HCl ER 75 MG No Venlafaxin e HCl ER 75 MG Ozempic (1 MG/DOSE) 4 MG/3ML Ozempic (1 MG/DOSE) 4 MG/3ML No Ozempic (1 MG/DOSE) 4 MG/3ML Effexor XR 75 MG Effexor XR 75 MG No 1{capsu le_with _food} QD Effexor XR 75 MG hydrOXYzine Pamoate 25 MG hydrOXYzine Pamoate 25 MG No 1{capsu le_as_n eeded} hydrOXYzin e Pamoate 25 MG Ozempic (1 MG/DOSE) 4 MG/3ML Ozempic (1 MG/DOSE) 4 MG/3ML No Ozempic (1 MG/DOSE) 4 MG/3ML Carvedilol 6.25 MG Carvedilol 6.25 MG No Carvedilol 6.25 MG Loratadine 10 MG Loratadine 10 MG No 1{table t} QD Loratadine 10 MG Famotidine 20 MG Famotidine 20 MG No 1{table t_at_be dtime_a s_neede d} QD Famotidine 20 MG Omeprazole 20 MG Omeprazole 20 MG No QD Omeprazole 20 MG Venlafaxine HCl ER 75 MG Venlafaxine HCl ER 75 MG No Venlafaxin e HCl ER 75 MG hydrOXYzine Pamoate 25 MG hydrOXYzine Pamoate 25 MG No hydrOXYzin e Pamoate 25 MG Lisinopril 40 MG Lisinopril 40 MG No 1{table t} QD Lisinopril 40 MG Tylenol Arthritis Pain Tylenol Arthritis Pain No Tylenol Arthritis Pain Carvedilol 6.25 MG Carvedilol 6.25 MG No Carvedilol 6.25 MG Loratadine 10 MG Loratadine 10 MG No 1{table t} QD Loratadine 10 MG Famotidine 20 MG Famotidine 20 MG No 1{table t_at_be dtime_a s_neede d} QD Famotidine 20 MG carvedilol 6.25 mg tablet TAKE ONE TABLET BY MOUTH TWICE A DAY carvedilol 6.25 mg tablet TAKE ONE TABLET BY MOUTH TWICE A DAY No carvedilol 6.25 mg tablet TAKE ONE TABLET BY MOUTH TWICE A DAY [facility] lisinopril 40 mg tablet TAKE ONE TABLET BY MOUTH DAILY lisinopril 40 mg tablet TAKE ONE TABLET BY MOUTH DAILY No lisinopril 40 mg tablet TAKE ONE TABLET BY MOUTH DAILY [facility] lorazepam 0.5 mg tablet PRN lorazepam 0.5 mg tablet PRN No lorazepam 0.5 mg tablet PRN [facility] venlafaxine ER 75 mg capsule,ext ended release 24 hr TAKE ONE CAPSULE BY MOUTH DAILY venlafaxine ER 75 mg capsule,ext ended release 24 hr TAKE ONE CAPSULE BY MOUTH DAILY No venlafaxin e ER 75 mg capsule,ex tended release 24 hr TAKE ONE CAPSULE BY MOUTH DAILY [facility] Omeprazole 20 MG Omeprazole 20 MG No QD Omeprazole 20 MG Venlafaxine HCl ER 75 MG Venlafaxine HCl ER 75 MG No Venlafaxin e HCl ER 75 MG hydrOXYzine Pamoate 25 MG hydrOXYzine Pamoate 25 MG No hydrOXYzin e Pamoate 25 MG Lisinopril 40 MG Lisinopril 40 MG No 1{table t} QD Lisinopril 40 MG Tylenol Arthritis Pain Tylenol Arthritis Pain No Tylenol Arthritis Pain Carvedilol 6.25 MG Carvedilol 6.25 MG No Carvedilol 6.25 MG Loratadine 10 MG Loratadine 10 MG No 1{table t} QD Loratadine 10 MG Famotidine 20 MG Famotidine 20 MG No 1{table t_at_be dtime_a s_neede d} QD Famotidine 20 MG Omeprazole 20 MG Omeprazole 20 MG No QD Omeprazole 20 MG Venlafaxine HCl ER 75 MG Venlafaxine HCl ER 75 MG No Venlafaxin e HCl ER 75 MG hydrOXYzine Pamoate 25 MG hydrOXYzine Pamoate 25 MG No hydrOXYzin e Pamoate 25 MG Lisinopril 40 MG Lisinopril 40 MG No 1{table t} QD Lisinopril 40 MG Tylenol Arthritis Pain Tylenol Arthritis Pain No Tylenol Arthritis Pain Carvedilol 6.25 MG Carvedilol 6.25 MG No Carvedilol 6.25 MG Loratadine 10 MG Loratadine 10 MG No 1{table t} QD Loratadine 10 MG Famotidine 20 MG Famotidine 20 MG No 1{table t_at_be dtime_a s_neede d} QD Famotidine 20 MG Omeprazole 20 MG Omeprazole 20 MG No QD Omeprazole 20 MG Lisinopril 40 MG Lisinopril 40 MG No 1{table t} QD Lisinopril 40 MG hydrOXYzine Pamoate 25 MG hydrOXYzine Pamoate 25 MG No hydrOXYzin e Pamoate 25 MG Venlafaxine HCl ER 75 MG Venlafaxine HCl ER 75 MG No Venlafaxin e HCl ER 75 MG Tylenol Arthritis Pain Tylenol Arthritis Pain No Tylenol Arthritis Pain Venlafaxine HCl ER 75 MG Venlafaxine HCl ER 75 MG No Venlafaxin e HCl ER 75 MG hydrOXYzine Pamoate 25 MG hydrOXYzine Pamoate 25 MG No hydrOXYzin e Pamoate 25 MG Omeprazole 20 MG Omeprazole 20 MG No QD Omeprazole 20 MG Lisinopril 40 MG Lisinopril 40 MG No 1{table t} QD Lisinopril 40 MG Loratadine 10 MG Loratadine 10 MG No 1{table t} QD Loratadine 10 MG Famotidine 20 MG Famotidine 20 MG No 1{table t_at_be dtime_a s_neede d} QD Famotidine 20 MG Tylenol Arthritis Pain Tylenol Arthritis Pain No Tylenol Arthritis Pain Carvedilol 6.25 MG Carvedilol 6.25 MG No Carvedilol 6.25 MG Loratadine 10 MG Loratadine 10 MG No 1{table t} QD Loratadine 10 MG Famotidine 20 MG Famotidine 20 MG No 1{table t_at_be dtime_a s_neede d} QD Famotidine 20 MG hydrOXYzine Pamoate 25 MG hydrOXYzine Pamoate 25 MG No hydrOXYzin e Pamoate 25 MG Lisinopril 40 MG Lisinopril 40 MG No 1{table t} QD Lisinopril 40 MG Tylenol Arthritis Pain Tylenol Arthritis Pain No Tylenol Arthritis Pain Carvedilol 6.25 MG Carvedilol 6.25 MG No 1{table t_with_ food} BID Carvedilol 6.25 MG Atorvastati n Calcium 10 MG Atorvastati n Calcium 10 MG No 1{table t} QD Atorvastat in Calcium 10 MG metFORMIN HCl ER 750 MG metFORMIN HCl ER 750 MG No 1{table t_with_ evening _meal} QD metFORMIN HCl ER 750 MG Effexor XR 75 MG Effexor XR 75 MG No 1{capsu le_with _food} QD Effexor XR 75 MG Omeprazole 20 MG Omeprazole 20 MG No QD Omeprazole 20 MG Methocarbam ol 500 MG Methocarbam ol 500 MG No 1.5{tab lets} 6xD Methocarba mol 500 MG hydrOXYzine Pamoate 25 MG hydrOXYzine Pamoate 25 MG No 1{capsu le_as_n eeded} hydrOXYzin e Pamoate 25 MG Carvedilol 6.25 MG Carvedilol 6.25 MG No Carvedilol 6.25 MG Venlafaxine HCl ER 75 MG Venlafaxine HCl ER 75 MG No Venlafaxin e HCl ER 75 MG Carvedilol 6.25 MG Carvedilol 6.25 MG No Carvedilol 6.25 MG Omeprazole 20 MG Omeprazole 20 MG No QD Omeprazole 20 MG Lisinopril 40 MG Lisinopril 40 MG No 1{table t} QD Lisinopril 40 MG Effexor XR 75 MG Effexor XR 75 MG No 1{capsu le_with _food} QD Effexor XR 75 MG Tylenol Arthritis Pain Tylenol Arthritis Pain No Tylenol Arthritis Pain Venlafaxine HCl ER 75 MG Venlafaxine HCl ER 75 MG No Venlafaxin e HCl ER 75 MG Methocarbam ol 500 MG Methocarbam ol 500 MG No 1.5{tab lets} 6xD Methocarba mol 500 MG hydrOXYzine Pamoate 25 MG hydrOXYzine Pamoate 25 MG No hydrOXYzin e Pamoate 25 MG Famotidine 20 MG Famotidine 20 MG No 1{table t_at_be dtime_a s_neede d} QD Famotidine 20 MG Atorvastati n Calcium 10 MG Atorvastati n Calcium 10 MG No 1{table t} QD Atorvastat in Calcium 10 MG Gabapentin 300 MG Gabapentin 300 MG No Gabapentin 300 MG hydrOXYzine Pamoate 25 MG hydrOXYzine Pamoate 25 MG No 1{capsu le_as_n eeded} hydrOXYzin e Pamoate 25 MG metFORMIN HCl ER 750 MG metFORMIN HCl ER 750 MG No 1{table t_with_ evening _meal} QD metFORMIN HCl ER 750 MG Loratadine 10 MG Loratadine 10 MG No 1{table t} QD Loratadine 10 MG Loratadine 10 MG Loratadine 10 MG No 1{table t} QD Loratadine 10 MG Famotidine 20 MG Famotidine 20 MG No 1{table t_at_be dtime_a s_neede d} QD Famotidine 20 MG Omeprazole 20 MG Omeprazole 20 MG No QD Omeprazole 20 MG Carvedilol 6.25 MG Carvedilol 6.25 MG No 1{table t_with_ food} BID Carvedilol 6.25 MG Tylenol Arthritis Pain Tylenol Arthritis Pain No Tylenol Arthritis Pain metFORMIN HCl ER 750 MG metFORMIN HCl ER 750 MG No metFORMIN HCl ER 750 MG Carvedilol 6.25 MG Carvedilol 6.25 MG No Carvedilol 6.25 MG Gabapentin 300 MG Gabapentin 300 MG No Gabapentin 300 MG Venlafaxine HCl ER 75 MG Venlafaxine HCl ER 75 MG No Venlafaxin e HCl ER 75 MG metFORMIN HCl ER 750 MG metFORMIN HCl ER 750 MG No 1{table t_with_ evening _meal} QD metFORMIN HCl ER 750 MG hydrOXYzine Pamoate 25 MG hydrOXYzine Pamoate 25 MG No 1{capsu le_as_n eeded} hydrOXYzin e Pamoate 25 MG Atorvastati n Calcium 10 MG Atorvastati n Calcium 10 MG No Atorvastat in Calcium 10 MG Atorvastati n Calcium 10 MG Atorvastati n Calcium 10 MG No 1{table t} QD Atorvastat in Calcium 10 MG Lisinopril 40 MG Lisinopril 40 MG No 1{table t} QD Lisinopril 40 MG Effexor XR 75 MG Effexor XR 75 MG No 1{capsu le_with _food} QD Effexor XR 75 MG hydrOXYzine Pamoate 25 MG hydrOXYzine Pamoate 25 MG No hydrOXYzin e Pamoate 25 MG Methocarbam ol 500 MG Methocarbam ol 500 MG No 1.5{tab lets} 6xD Methocarba mol 500 MG Gabapentin 300 MG Gabapentin 300 MG No 1{capsu le} TID Gabapentin 300 MG Methocarbam ol 500 MG Methocarbam ol 500 MG No 1.5{tab lets} 6xD Methocarba mol 500 MG Venlafaxine HCl ER 75 MG Venlafaxine HCl ER 75 MG No Venlafaxin e HCl ER 75 MG Tylenol Arthritis Pain Tylenol Arthritis Pain No Tylenol Arthritis Pain Carvedilol 6.25 MG Carvedilol 6.25 MG No 1{table t_with_ food} BID Carvedilol 6.25 MG Lisinopril 40 MG Lisinopril 40 MG No 1{table t} QD Lisinopril 40 MG Ibuprofen 600 MG Ibuprofen 600 MG No TID Ibuprofen 600 MG traMADol HCl 50 MG traMADol HCl 50 MG No 1{table t_as_ne eded} QD traMADol HCl 50 MG Ozempic 0.25 or 0.5 MG/DOSE Ozempic 0.25 or 0.5 MG/DOSE No Ozempic 0.25 or 0.5 MG/DOSE Gabapentin 300 MG Gabapentin 300 MG No 1{capsu le} TID Gabapentin 300 MG Loratadine 10 MG Loratadine 10 MG No 1{table t} QD Loratadine 10 MG Omeprazole 20 MG Omeprazole 20 MG No QD Omeprazole 20 MG Atorvastati n Calcium 10 MG Atorvastati n Calcium 10 MG No 1{table t} QD Atorvastat in Calcium 10 MG Gabapentin 300 MG Gabapentin 300 MG No 1{capsu le} TID Gabapentin 300 MG hydrOXYzine Pamoate 25 MG hydrOXYzine Pamoate 25 MG No hydrOXYzin e Pamoate 25 MG Famotidine 20 MG Famotidine 20 MG No 1{table t_at_be dtime_a s_neede d} QD Famotidine 20 MG Lisinopril 40 MG Lisinopril 40 MG No Lisinopril 40 MG Lisinopril 40 MG Lisinopril 40 MG No 1{table t} QD Lisinopril 40 MG Carvedilol 6.25 MG Carvedilol 6.25 MG No 1{table t_with_ food} BID Carvedilol 6.25 MG Ibuprofen 600 MG Ibuprofen 600 MG No TID Ibuprofen 600 MG Effexor XR 75 MG Effexor XR 75 MG No 1{capsu le_with _food} QD Effexor XR 75 MG Atorvastati n Calcium 10 MG Atorvastati n Calcium 10 MG No 1{table t} QD Atorvastat in Calcium 10 MG Gabapentin 300 MG Gabapentin 300 MG No 1{capsu le} TID Gabapentin 300 MG hydrOXYzine Pamoate 25 MG hydrOXYzine Pamoate 25 MG No hydrOXYzin e Pamoate 25 MG Loratadine 10 MG Loratadine 10 MG No 1{table t} QD Loratadine 10 MG Gabapentin 300 MG Gabapentin 300 MG No 1{capsu le} TID Gabapentin 300 MG Lisinopril 40 MG Lisinopril 40 MG No 1{table t} QD Lisinopril 40 MG Carvedilol 6.25 MG Carvedilol 6.25 MG No 1{table t_with_ food} BID Carvedilol 6.25 MG Famotidine 20 MG Famotidine 20 MG No 1{table t_at_be dtime_a s_neede d} QD Famotidine 20 MG Venlafaxine HCl ER 75 MG Venlafaxine HCl ER 75 MG No Venlafaxin e HCl ER 75 MG Tylenol Arthritis Pain Tylenol Arthritis Pain No Tylenol Arthritis Pain Atorvastati n Calcium 10 MG Atorvastati n Calcium 10 MG No Atorvastat in Calcium 10 MG hydrOXYzine Pamoate 25 MG hydrOXYzine Pamoate 25 MG No 1{capsu le_as_n eeded} hydrOXYzin e Pamoate 25 MG Lisinopril 40 MG Lisinopril 40 MG No 1{table t} QD Lisinopril 40 MG Carvedilol 6.25 MG Carvedilol 6.25 MG No 1{table t_with_ food} BID Carvedilol 6.25 MG Ibuprofen 600 MG Ibuprofen 600 MG No TID Ibuprofen 600 MG Effexor XR 75 MG Effexor XR 75 MG No 1{capsu le_with _food} QD Effexor XR 75 MG Atorvastati n Calcium 10 MG Atorvastati n Calcium 10 MG No 1{table t} QD Atorvastat in Calcium 10 MG Gabapentin 300 MG Gabapentin 300 MG No 1{capsu le} TID Gabapentin 300 MG hydrOXYzine Pamoate 25 MG hydrOXYzine Pamoate 25 MG No hydrOXYzin e Pamoate 25 MG Loratadine 10 MG Loratadine 10 MG No 1{table t} QD Loratadine 10 MG Gabapentin 300 MG Gabapentin 300 MG No 1{capsu le} TID Gabapentin 300 MG Lisinopril 40 MG Lisinopril 40 MG No 1{table t} QD Lisinopril 40 MG Carvedilol 6.25 MG Carvedilol 6.25 MG No 1{table t_with_ food} BID Carvedilol 6.25 MG Famotidine 20 MG Famotidine 20 MG No 1{table t_at_be dtime_a s_neede d} QD Famotidine 20 MG Venlafaxine HCl ER 75 MG Venlafaxine HCl ER 75 MG No Venlafaxin e HCl ER 75 MG Tylenol Arthritis Pain Tylenol Arthritis Pain No Tylenol Arthritis Pain Atorvastati n Calcium 10 MG Atorvastati n Calcium 10 MG No Atorvastat in Calcium 10 MG hydrOXYzine Pamoate 25 MG hydrOXYzine Pamoate 25 MG No 1{capsu le_as_n eeded} hydrOXYzin e Pamoate 25 MG Lisinopril 40 MG Lisinopril 40 MG No 1{table t} QD Lisinopril 40 MG Carvedilol 6.25 MG Carvedilol 6.25 MG No 1{table t_with_ food} BID Carvedilol 6.25 MG Ibuprofen 600 MG Ibuprofen 600 MG No TID Ibuprofen 600 MG Effexor XR 75 MG Effexor XR 75 MG No 1{capsu le_with _food} QD Effexor XR 75 MG Atorvastati n Calcium 10 MG Atorvastati n Calcium 10 MG No 1{table t} QD Atorvastat in Calcium 10 MG Gabapentin 300 MG Gabapentin 300 MG No 1{capsu le} TID Gabapentin 300 MG hydrOXYzine Pamoate 25 MG hydrOXYzine Pamoate 25 MG No hydrOXYzin e Pamoate 25 MG Loratadine 10 MG Loratadine 10 MG No 1{table t} QD Loratadine 10 MG Gabapentin 300 MG Gabapentin 300 MG No 1{capsu le} TID Gabapentin 300 MG Lisinopril 40 MG Lisinopril 40 MG No 1{table t} QD Lisinopril 40 MG Carvedilol 6.25 MG Carvedilol 6.25 MG No 1{table t_with_ food} BID Carvedilol 6.25 MG Famotidine 20 MG Famotidine 20 MG No 1{table t_at_be dtime_a s_neede d} QD Famotidine 20 MG Venlafaxine HCl ER 75 MG Venlafaxine HCl ER 75 MG No Venlafaxin e HCl ER 75 MG Tylenol Arthritis Pain Tylenol Arthritis Pain No Tylenol Arthritis Pain Atorvastati n Calcium 10 MG Atorvastati n Calcium 10 MG No Atorvastat in Calcium 10 MG hydrOXYzine Pamoate 25 MG hydrOXYzine Pamoate 25 MG No 1{capsu le_as_n eeded} hydrOXYzin e Pamoate 25 MG Lisinopril 40 MG Lisinopril 40 MG No 1{table t} QD Lisinopril 40 MG Carvedilol 6.25 MG Carvedilol 6.25 MG No 1{table t_with_ food} BID Carvedilol 6.25 MG Ibuprofen 600 MG Ibuprofen 600 MG No TID Ibuprofen 600 MG Effexor XR 75 MG Effexor XR 75 MG No 1{capsu le_with _food} QD Effexor XR 75 MG Atorvastati n Calcium 10 MG Atorvastati n Calcium 10 MG No 1{table t} QD Atorvastat in Calcium 10 MG Gabapentin 300 MG Gabapentin 300 MG No 1{capsu le} TID Gabapentin 300 MG hydrOXYzine Pamoate 25 MG hydrOXYzine Pamoate 25 MG No hydrOXYzin e Pamoate 25 MG Loratadine 10 MG Loratadine 10 MG No 1{table t} QD Loratadine 10 MG Gabapentin 300 MG Gabapentin 300 MG No 1{capsu le} TID Gabapentin 300 MG Lisinopril 40 MG Lisinopril 40 MG No 1{table t} QD Lisinopril 40 MG Carvedilol 6.25 MG Carvedilol 6.25 MG No 1{table t_with_ food} BID Carvedilol 6.25 MG Famotidine 20 MG Famotidine 20 MG No 1{table t_at_be dtime_a s_neede d} QD Famotidine 20 MG Venlafaxine HCl ER 75 MG Venlafaxine HCl ER 75 MG No Venlafaxin e HCl ER 75 MG Tylenol Arthritis Pain Tylenol Arthritis Pain No Tylenol Arthritis Pain Atorvastati n Calcium 10 MG Atorvastati n Calcium 10 MG No Atorvastat in Calcium 10 MG hydrOXYzine Pamoate 25 MG hydrOXYzine Pamoate 25 MG No 1{capsu le_as_n eeded} hydrOXYzin e Pamoate 25 MG Lisinopril 40 MG Lisinopril 40 MG No 1{table t} QD Lisinopril 40 MG Carvedilol 6.25 MG Carvedilol 6.25 MG No 1{table t_with_ food} BID Carvedilol 6.25 MG Ibuprofen 600 MG Ibuprofen 600 MG No TID Ibuprofen 600 MG Effexor XR 75 MG Effexor XR 75 MG No 1{capsu le_with _food} QD Effexor XR 75 MG Atorvastati n Calcium 10 MG Atorvastati n Calcium 10 MG No 1{table t} QD Atorvastat in Calcium 10 MG Gabapentin 300 MG Gabapentin 300 MG No 1{capsu le} TID Gabapentin 300 MG hydrOXYzine Pamoate 25 MG hydrOXYzine Pamoate 25 MG No hydrOXYzin e Pamoate 25 MG Carvedilol 6.25 MG Carvedilol 6.25 MG No Carvedilol 6.25 MG Loratadine 10 MG Loratadine 10 MG No 1{table t} QD Loratadine 10 MG Gabapentin 300 MG Gabapentin 300 MG No 1{capsu le} TID Gabapentin 300 MG Lisinopril 40 MG Lisinopril 40 MG No 1{table t} QD Lisinopril 40 MG Carvedilol 6.25 MG Carvedilol 6.25 MG No 1{table t_with_ food} BID Carvedilol 6.25 MG Famotidine 20 MG Famotidine 20 MG No 1{table t_at_be dtime_a s_neede d} QD Famotidine 20 MG Venlafaxine HCl ER 75 MG Venlafaxine HCl ER 75 MG No Venlafaxin e HCl ER 75 MG Tylenol Arthritis Pain Tylenol Arthritis Pain No Tylenol Arthritis Pain Atorvastati n Calcium 10 MG Atorvastati n Calcium 10 MG No Atorvastat in Calcium 10 MG hydrOXYzine Pamoate 25 MG hydrOXYzine Pamoate 25 MG No 1{capsu le_as_n eeded} hydrOXYzin e Pamoate 25 MG Omeprazole 20 MG Omeprazole 20 MG No QD Omeprazole 20 MG Lisinopril 40 MG Lisinopril 40 MG No 1{table t} QD Lisinopril 40 MG Lisinopril 40 MG Lisinopril 40 MG No 1{table t} QD Lisinopril 40 MG Carvedilol 6.25 MG Carvedilol 6.25 MG No 1{table t_with_ food} BID Carvedilol 6.25 MG Ibuprofen 600 MG Ibuprofen 600 MG No TID Ibuprofen 600 MG Effexor XR 75 MG Effexor XR 75 MG No 1{capsu le_with _food} QD Effexor XR 75 MG Atorvastati n Calcium 10 MG Atorvastati n Calcium 10 MG No 1{table t} QD Atorvastat in Calcium 10 MG Gabapentin 300 MG Gabapentin 300 MG No 1{capsu le} TID Gabapentin 300 MG Effexor XR 75 MG Effexor XR 75 MG No 1{capsu le_with _food} QD Effexor XR 75 MG hydrOXYzine Pamoate 25 MG hydrOXYzine Pamoate 25 MG No hydrOXYzin e Pamoate 25 MG Loratadine 10 MG Loratadine 10 MG No 1{table t} QD Loratadine 10 MG Gabapentin 300 MG Gabapentin 300 MG No 1{capsu le} TID Gabapentin 300 MG Lisinopril 40 MG Lisinopril 40 MG No 1{table t} QD Lisinopril 40 MG Carvedilol 6.25 MG Carvedilol 6.25 MG No 1{table t_with_ food} BID Carvedilol 6.25 MG Famotidine 20 MG Famotidine 20 MG No 1{table t_at_be dtime_a s_neede d} QD Famotidine 20 MG Venlafaxine HCl ER 75 MG Venlafaxine HCl ER 75 MG No Venlafaxin e HCl ER 75 MG Tylenol Arthritis Pain Tylenol Arthritis Pain No Tylenol Arthritis Pain Atorvastati n Calcium 10 MG Atorvastati n Calcium 10 MG No Atorvastat in Calcium 10 MG Tylenol Arthritis Pain Tylenol Arthritis Pain No Tylenol Arthritis Pain hydrOXYzine Pamoate 25 MG hydrOXYzine Pamoate 25 MG No 1{capsu le_as_n eeded} hydrOXYzin e Pamoate 25 MG Venlafaxine HCl ER 75 MG Venlafaxine HCl ER 75 MG No Venlafaxin e HCl ER 75 MG Lisinopril 40 MG Lisinopril 40 MG No 1{table t} QD Lisinopril 40 MG Carvedilol 6.25 MG Carvedilol 6.25 MG No 1{table t_with_ food} BID Carvedilol 6.25 MG Ibuprofen 600 MG Ibuprofen 600 MG No TID Ibuprofen 600 MG Effexor XR 75 MG Effexor XR 75 MG No 1{capsu le_with _food} QD Effexor XR 75 MG Atorvastati n Calcium 10 MG Atorvastati n Calcium 10 MG No 1{table t} QD Atorvastat in Calcium 10 MG Gabapentin 300 MG Gabapentin 300 MG No 1{capsu le} TID Gabapentin 300 MG hydrOXYzine Pamoate 25 MG hydrOXYzine Pamoate 25 MG No hydrOXYzin e Pamoate 25 MG Loratadine 10 MG Loratadine 10 MG No 1{table t} QD Loratadine 10 MG Methocarbam ol 500 MG Methocarbam ol 500 MG No 1.5{tab lets} 6xD Methocarba mol 500 MG Gabapentin 300 MG Gabapentin 300 MG No 1{capsu le} TID Gabapentin 300 MG Lisinopril 40 MG Lisinopril 40 MG No 1{table t} QD Lisinopril 40 MG Cyclobenzap rine HCl TABS Cyclobenzap rine HCl TABS Yes [facility] Carvedilol 6.25 MG Carvedilol 6.25 MG No 1{table t_with_ food} BID Carvedilol 6.25 MG Famotidine 20 MG Famotidine 20 MG No 1{table t_at_be dtime_a s_neede d} QD Famotidine 20 MG Venlafaxine HCl ER 75 MG Venlafaxine HCl ER 75 MG No Venlafaxin e HCl ER 75 MG Tylenol Arthritis Pain Tylenol Arthritis Pain No Tylenol Arthritis Pain Atorvastati n Calcium 10 MG Atorvastati n Calcium 10 MG No Atorvastat in Calcium 10 MG hydrOXYzine Pamoate 25 MG hydrOXYzine Pamoate 25 MG No 1{capsu le_as_n eeded} hydrOXYzin e Pamoate 25 MG Zantac TABS Zantac TABS Yes [facility] hydrOXYzine Pamoate 25 MG hydrOXYzine Pamoate 25 MG No hydrOXYzin e Pamoate 25 MG Effexor XR 75 MG Effexor XR 75 MG No 1{capsu le_with _food} QD Effexor XR 75 MG Carvedilol 6.25 MG Carvedilol 6.25 MG No 1{table t_with_ food} BID Carvedilol 6.25 MG Famotidine 20 MG Famotidine 20 MG No 1{table t_at_be dtime_a s_neede d} QD Famotidine 20 MG Gabapentin 300 MG Gabapentin 300 MG No 1{capsu le} TID Gabapentin 300 MG Simvastatin TABS Simvastatin TABS Yes [facility] hydrOXYzine Pamoate 25 MG hydrOXYzine Pamoate 25 MG No hydrOXYzin e Pamoate 25 MG Loratadine 10 MG Loratadine 10 MG No 1{table t} QD Loratadine 10 MG Ozempic (1 MG/DOSE) 4 MG/3ML Ozempic (1 MG/DOSE) 4 MG/3ML No Ozempic (1 MG/DOSE) 4 MG/3ML Lisinopril 40 MG Lisinopril 40 MG No 1{table t} QD Lisinopril 40 MG Famotidine 20 MG Famotidine 20 MG No 1{table t_at_be dtime_a s_neede d} QD Famotidine 20 MG Ibuprofen 600 MG Ibuprofen 600 MG No TID Ibuprofen 600 MG Carvedilol 6.25 MG Carvedilol 6.25 MG No 1{table t_with_ food} BID Carvedilol 6.25 MG Venlafaxine HCl ER 75 MG Venlafaxine HCl ER 75 MG No Venlafaxin e HCl ER 75 MG hydrOXYzine Pamoate 25 MG hydrOXYzine Pamoate 25 MG No 1{capsu le_as_n eeded} hydrOXYzin e Pamoate 25 MG Tylenol Arthritis Pain Tylenol Arthritis Pain No Tylenol Arthritis Pain Gabapentin 300 MG Gabapentin 300 MG No 1{capsu le} TID Gabapentin 300 MG Atorvastati n Calcium 10 MG Atorvastati n Calcium 10 MG No 1{table t} QD Atorvastat in Calcium 10 MG Atorvastati n Calcium 10 MG Atorvastati n Calcium 10 MG No 1{table t} QD Atorvastat in Calcium 10 MG Gabapentin 300 MG Gabapentin 300 MG No Gabapentin 300 MG hydrOXYzine Pamoate 25 MG hydrOXYzine Pamoate 25 MG No 1{capsu le_as_n eeded} hydrOXYzin e Pamoate 25 MG Effexor XR 75 MG Effexor XR 75 MG No 1{capsu le_with _food} QD Effexor XR 75 MG Carvedilol 6.25 MG Carvedilol 6.25 MG No 1{table t_with_ food} BID Carvedilol 6.25 MG Famotidine 20 MG Famotidine 20 MG No 1{table t_at_be dtime_a s_neede d} QD Famotidine 20 MG Gabapentin 300 MG Gabapentin 300 MG No 1{capsu le} TID Gabapentin 300 MG hydrOXYzine Pamoate 25 MG hydrOXYzine Pamoate 25 MG No hydrOXYzin e Pamoate 25 MG Loratadine 10 MG Loratadine 10 MG No 1{table t} QD Loratadine 10 MG Ozempic (1 MG/DOSE) 4 MG/3ML Ozempic (1 MG/DOSE) 4 MG/3ML No Ozempic (1 MG/DOSE) 4 MG/3ML Lisinopril 40 MG Lisinopril 40 MG No 1{table t} QD Lisinopril 40 MG Ibuprofen 600 MG Ibuprofen 600 MG No TID Ibuprofen 600 MG Carvedilol 6.25 MG Carvedilol 6.25 MG No 1{table t_with_ food} BID Carvedilol 6.25 MG metFORMIN HCl ER 750 MG metFORMIN HCl ER 750 MG No 1{table t_with_ evening _meal} QD metFORMIN HCl ER 750 MG Venlafaxine HCl ER 75 MG Venlafaxine HCl ER 75 MG No Venlafaxin e HCl ER 75 MG hydrOXYzine Pamoate 25 MG hydrOXYzine Pamoate 25 MG No 1{capsu le_as_n eeded} hydrOXYzin e Pamoate 25 MG Tylenol Arthritis Pain Tylenol Arthritis Pain No Tylenol Arthritis Pain Gabapentin 300 MG Gabapentin 300 MG No 1{capsu le} TID Gabapentin 300 MG Atorvastati n Calcium 10 MG Atorvastati n Calcium 10 MG No 1{table t} QD Atorvastat in Calcium 10 MG Loratadine 10 MG Loratadine 10 MG No 1{table t} QD Loratadine 10 MG Effexor XR 75 MG Effexor XR 75 MG No 1{capsu le_with _food} QD Effexor XR 75 MG Carvedilol 6.25 MG Carvedilol 6.25 MG No 1{table t_with_ food} BID Carvedilol 6.25 MG Famotidine 20 MG Famotidine 20 MG No 1{table t_at_be dtime_a s_neede d} QD Famotidine 20 MG Gabapentin 300 MG Gabapentin 300 MG No 1{capsu le} TID Gabapentin 300 MG hydrOXYzine Pamoate 25 MG hydrOXYzine Pamoate 25 MG No hydrOXYzin e Pamoate 25 MG Loratadine 10 MG Loratadine 10 MG No 1{table t} QD Loratadine 10 MG Ozempic (1 MG/DOSE) 4 MG/3ML Ozempic (1 MG/DOSE) 4 MG/3ML No Ozempic (1 MG/DOSE) 4 MG/3ML Lisinopril 40 MG Lisinopril 40 MG No 1{table t} QD Lisinopril 40 MG Ibuprofen 600 MG Ibuprofen 600 MG No TID Ibuprofen 600 MG Carvedilol 6.25 MG Carvedilol 6.25 MG No 1{table t_with_ food} BID Carvedilol 6.25 MG Venlafaxine HCl ER 75 MG Venlafaxine HCl ER 75 MG No Venlafaxin e HCl ER 75 MG hydrOXYzine Pamoate 25 MG hydrOXYzine Pamoate 25 MG No 1{capsu le_as_n eeded} hydrOXYzin e Pamoate 25 MG Tylenol Arthritis Pain Tylenol Arthritis Pain No Tylenol Arthritis Pain Gabapentin 300 MG Gabapentin 300 MG No 1{capsu le} TID Gabapentin 300 MG Atorvastati n Calcium 10 MG Atorvastati n Calcium 10 MG No 1{table t} QD Atorvastat in Calcium 10 MG Carvedilol 6.25 MG Carvedilol 6.25 MG No Carvedilol 6.25 MG Famotidine 20 MG Famotidine 20 MG No 1{table t_at_be dtime_a s_neede d} QD Famotidine 20 MG Gabapentin 300 MG Gabapentin 300 MG No 1{capsu le} TID Gabapentin 300 MG hydrOXYzine Pamoate 25 MG hydrOXYzine Pamoate 25 MG No hydrOXYzin e Pamoate 25 MG Loratadine 10 MG Loratadine 10 MG No 1{table t} QD Loratadine 10 MG Ozempic (1 MG/DOSE) 4 MG/3ML Ozempic (1 MG/DOSE) 4 MG/3ML No Ozempic (1 MG/DOSE) 4 MG/3ML Lisinopril 40 MG Lisinopril 40 MG No 1{table t} QD Lisinopril 40 MG Ibuprofen 600 MG Ibuprofen 600 MG No TID Ibuprofen 600 MG Atorvastati n Calcium 10 MG Atorvastati n Calcium 10 MG No 1{table t} QD Atorvastat in Calcium 10 MG Venlafaxine HCl ER 75 MG Venlafaxine HCl ER 75 MG No Venlafaxin e HCl ER 75 MG hydrOXYzine Pamoate 25 MG hydrOXYzine Pamoate 25 MG No 1{capsu le_as_n eeded} hydrOXYzin e Pamoate 25 MG Tylenol Arthritis Pain Tylenol Arthritis Pain No Tylenol Arthritis Pain Gabapentin 300 MG Gabapentin 300 MG No 1{capsu le} TID Gabapentin 300 MG Effexor XR 75 MG Effexor XR 75 MG No 1{capsu le_with _food} QD Effexor XR 75 MG Carvedilol 6.25 MG Carvedilol 6.25 MG No Carvedilol 6.25 MG Famotidine 20 MG Famotidine 20 MG No 1{table t_at_be dtime_a s_neede d} QD Famotidine 20 MG Gabapentin 300 MG Gabapentin 300 MG No 1{capsu le} TID Gabapentin 300 MG hydrOXYzine Pamoate 25 MG hydrOXYzine Pamoate 25 MG No hydrOXYzin e Pamoate 25 MG Loratadine 10 MG Loratadine 10 MG No 1{table t} QD Loratadine 10 MG Ozempic (1 MG/DOSE) 4 MG/3ML Ozempic (1 MG/DOSE) 4 MG/3ML No Ozempic (1 MG/DOSE) 4 MG/3ML Lisinopril 40 MG Lisinopril 40 MG No 1{table t} QD Lisinopril 40 MG Ibuprofen 600 MG Ibuprofen 600 MG No TID Ibuprofen 600 MG Atorvastati n Calcium 10 MG Atorvastati n Calcium 10 MG No 1{table t} QD Atorvastat in Calcium 10 MG Venlafaxine HCl ER 75 MG Venlafaxine HCl ER 75 MG No Venlafaxin e HCl ER 75 MG hydrOXYzine Pamoate 25 MG hydrOXYzine Pamoate 25 MG No 1{capsu le_as_n eeded} hydrOXYzin e Pamoate 25 MG Tylenol Arthritis Pain Tylenol Arthritis Pain No Tylenol Arthritis Pain Gabapentin 300 MG Gabapentin 300 MG No 1{capsu le} TID Gabapentin 300 MG Effexor XR 75 MG Effexor XR 75 MG No 1{capsu le_with _food} QD Effexor XR 75 MG Carvedilol 6.25 MG Carvedilol 6.25 MG No Carvedilol 6.25 MG Famotidine 20 MG Famotidine 20 MG No 1{table t_at_be dtime_a s_neede d} QD Famotidine 20 MG Gabapentin 300 MG Gabapentin 300 MG No 1{capsu le} TID Gabapentin 300 MG hydrOXYzine Pamoate 25 MG hydrOXYzine Pamoate 25 MG No hydrOXYzin e Pamoate 25 MG Loratadine 10 MG Loratadine 10 MG No 1{table t} QD Loratadine 10 MG Ozempic (1 MG/DOSE) 4 MG/3ML Ozempic (1 MG/DOSE) 4 MG/3ML No Ozempic (1 MG/DOSE) 4 MG/3ML Lisinopril 40 MG Lisinopril 40 MG No 1{table t} QD Lisinopril 40 MG Ibuprofen 600 MG Ibuprofen 600 MG No TID Ibuprofen 600 MG Atorvastati n Calcium 10 MG Atorvastati n Calcium 10 MG No 1{table t} QD Atorvastat in Calcium 10 MG Venlafaxine HCl ER 75 MG Venlafaxine HCl ER 75 MG No Venlafaxin e HCl ER 75 MG hydrOXYzine Pamoate 25 MG hydrOXYzine Pamoate 25 MG No 1{capsu le_as_n eeded} hydrOXYzin e Pamoate 25 MG Tylenol Arthritis Pain Tylenol Arthritis Pain No Tylenol Arthritis Pain Gabapentin 300 MG Gabapentin 300 MG No 1{capsu le} TID Gabapentin 300 MG Effexor XR 75 MG Effexor XR 75 MG No 1{capsu le_with _food} QD Effexor XR 75 MG Venlafaxine HCl ER 75 MG Venlafaxine HCl ER 75 MG No Venlafaxin e HCl ER 75 MG Famotidine 20 MG Famotidine 20 MG No 1{table t_at_be dtime_a s_neede d} QD Famotidine 20 MG Gabapentin 300 MG Gabapentin 300 MG No 1{capsu le} TID Gabapentin 300 MG hydrOXYzine Pamoate 25 MG hydrOXYzine Pamoate 25 MG No hydrOXYzin e Pamoate 25 MG Loratadine 10 MG Loratadine 10 MG No 1{table t} QD Loratadine 10 MG Ozempic (1 MG/DOSE) 4 MG/3ML Ozempic (1 MG/DOSE) 4 MG/3ML No Ozempic (1 MG/DOSE) 4 MG/3ML Carvedilol 6.25 MG Carvedilol 6.25 MG No Carvedilol 6.25 MG Lisinopril 40 MG Lisinopril 40 MG No Lisinopril 40 MG Atorvastati n Calcium 10 MG Atorvastati n Calcium 10 MG No Atorvastat in Calcium 10 MG Gabapentin 300 MG Gabapentin 300 MG No 1{capsu le} TID Gabapentin 300 MG Immunizations Ordered Immunization Name Filled Immunization Name Date Status Comments Source TD Pres-Free 2022-12-17 00:00:00 Completed [facility] TD Pres-Free 2022-12-17 00:00:00 Completed [facility] TD Pres-Free 2022-12-17 00:00:00 Completed [facility] TD Pres-Free 2022-12-17 00:00:00 Completed [facility] TD Pres-Free 2022-12-17 00:00:00 Completed [facility] TD Pres-Free 2022-12-17 00:00:00 Completed [facility] TD Pres-Free 2022-12-17 00:00:00 Completed [facility] TD Pres-Free 2022-12-17 00:00:00 Completed [facility] Fluzone Fluzone 2021-10-08 14:56:00 Completed [facility] Fluzone Fluzone 2021-10-08 14:56:00 Completed [facility] Fluzone Fluzone 2021-10-08 14:56:00 Completed [facility] Fluzone Fluzone 2021-10-08 14:56:00 Completed [facility] Fluzone Fluzone 2021-10-08 14:56:00 Completed [facility] Fluzone Fluzone 2021-10-08 14:56:00 Completed [facility] Fluzone Fluzone 2021-10-08 14:56:00 Completed [facility] Fluzone Fluzone 2021-10-08 14:56:00 Completed [facility] Fluzone Fluzone 2021-10-08 14:56:00 Completed [facility] Fluzone Fluzone 2021-10-08 14:56:00 Completed [facility] SARS-COV-2 COVID-19 MODERNA 12+ YRS VACCINE 2021-03-14 00:00:00 Completed [facility] SARS-COV-2 COVID-19 MODERNA 12+ YRS VACCINE 2021-03-14 00:00:00 Completed [facility] SARS-COV-2 COVID-19 MODERNA 12+ YRS VACCINE 2021-03-14 00:00:00 Completed [facility] SARS-COV-2 COVID-19 MODERNA 12+ YRS VACCINE 2021-03-14 00:00:00 Completed [facility] SARS-COV-2 COVID-19 MODERNA 12+ YRS VACCINE 2021-03-14 00:00:00 Completed [facility] SARS-COV-2 COVID-19 MODERNA 12+ YRS VACCINE 2021-03-14 00:00:00 Completed [facility] SARS-COV-2 COVID-19 MODERNA 12+ YRS VACCINE 2021-03-14 00:00:00 Completed [facility] SARS-COV-2 COVID-19 MODERNA 12+ YRS VACCINE 2021-03-14 00:00:00 Completed [facility] SARS-COV-2 COVID-19 MODERNA VACCINE 2021-03-14 00:00:00 Completed [facility] SARS-COV-2 COVID-19 MODERNA 12+ YRS VACCINE 2021-02-14 00:00:00 Completed [facility] SARS-COV-2 COVID-19 MODERNA 12+ YRS VACCINE 2021-02-14 00:00:00 Completed [facility] SARS-COV-2 COVID-19 MODERNA 12+ YRS VACCINE 2021-02-14 00:00:00 Completed [facility] SARS-COV-2 COVID-19 MODERNA 12+ YRS VACCINE 2021-02-14 00:00:00 Completed [facility] SARS-COV-2 COVID-19 MODERNA 12+ YRS VACCINE 2021-02-14 00:00:00 Completed [facility] SARS-COV-2 COVID-19 MODERNA 12+ YRS VACCINE 2021-02-14 00:00:00 Completed [facility] SARS-COV-2 COVID-19 MODERNA 12+ YRS VACCINE 2021-02-14 00:00:00 Completed [facility] SARS-COV-2 COVID-19 MODERNA 12+ YRS VACCINE 2021-02-14 00:00:00 Completed [facility] SARS-COV-2 COVID-19 MODERNA VACCINE 2021-02-14 00:00:00 Completed [facility] influenza, injectable, quadrivalent influenza, injectable, quadrivalent 2019-08-08 00:00:00 Completed [facility] Fluzone Fluzone Unknown Completed [facility] Fluzone Fluzone Unknown Completed [facility] Fluzone Fluzone Unknown Completed [facility] Fluzone Fluzone Unknown Completed [facility] Fluzone Fluzone Unknown Completed [facility] Fluzone Fluzone Unknown Completed [facility] Fluzone Fluzone Unknown Completed [facility] Fluzone Fluzone Unknown Completed [facility] Fluzone Fluzone Unknown Completed [facility] Fluzone Fluzone Unknown Completed [facility] Fluzone Fluzone Unknown Completed [facility] Fluzone Fluzone Unknown Completed [facility] Fluzone Fluzone Unknown Completed [facility] Fluzone Fluzone Unknown Completed [facility] Fluzone Fluzone Unknown Completed [facility] Fluzone Fluzone Unknown Completed [facility] Fluzone Fluzone Unknown Completed [facility] Fluzone Fluzone Unknown Completed [facility] Vital Signs Vital Name Observation Time Observation Value Comments S argeliace height 2023-12-23 09:50:00 65 [in_i] Commo n [facility] weight 2023-12-23 09:50:00 249 [lb_av] Comm on [facility] temperature 2023-12-23 09:50:00 97.2 [degF] Com mon [facility] bmi 2023-12-23 09:50:00 41.43 kg/m2 Comm on [facility] oximetry 2023-12-23 09:50:00 98 % Commo n [facility] blood pressure systolic 2023-12-23 09:50:00 128 mm[Hg] [facility] blood pressure diastolic 2023-12-23 09:50:00 70 mm[Hg] [facility] height 2023-12-23 10:00:00 65 [in_i] Commo n [facility] weight 2023-12-23 10:00:00 249 [lb_av] Comm on [facility] temperature 2023-12-23 10:00:00 97.2 [degF] Com mon [facility] bmi 2023-12-23 10:00:00 41.43 kg/m2 Comm on [facility] oximetry 2023-12-23 10:00:00 98 % Commo n [facility] blood pressure systolic 2023-12-23 10:00:00 128 mm[Hg] [facility] blood pressure diastolic 2023-12-23 10:00:00 70 mm[Hg] [facility] height 2023-08-18 08:50:00 65 [in_i] Commo n [facility] weight 2023-08-18 08:50:00 255.0 [lb_av] Co mmon [facility] temperature 2023-08-18 08:50:00 97.6 [degF] Com mon [facility] bmi 2023-08-18 08:50:00 42.43 kg/m2 Comm on [facility] oximetry 2023-08-18 08:50:00 99 % Commo n [facility] respiratory rate 2023-08-18 08:50:00 18 /min Common [facility] blood pressure systolic 2023-08-18 08:50:00 129 mm[Hg] [facility] blood pressure diastolic 2023-08-18 08:50:00 71 mm[Hg] [facility] height 2023-04-21 15:10:00 65 [in_i] Commo n [facility] weight 2023-04-21 15:10:00 255.4 [lb_av] Co mmon [facility] temperature 2023-04-21 15:10:00 97.7 [degF] Com mon [facility] bmi 2023-04-21 15:10:00 42.5 kg/m2 Commo n [facility] oximetry 2023-04-21 15:10:00 97 % Commo n [facility] respiratory rate 2023-04-21 15:10:00 17 /min Common [facility] blood pressure systolic 2023-04-21 15:10:00 129 mm[Hg] [facility] blood pressure diastolic 2023-04-21 15:10:00 74 mm[Hg] [facility] Systolic blood pressure 2023-04-13 18:19:00 162 mm[Hg] [facility] Diastolic blood pressure 2023-04-13 18:19:00 85 mm[Hg] [facility] Heart rate 2023-04-13 18:19:00 56 /min [facility] Body temperature 2023-04-13 18:19:00 36.94 Jenny [facility] Body height 2023-04-13 18:19:00 165.1 cm [facility] Body weight 2023-04-13 18:19:00 113.399 kg [facility] BMI 2023-04-13 18:19:00 41.60 kg/m2 [facility] Systolic blood pressure 2023-04-03 13:15:00 110 mm[Hg] [facility] Diastolic blood pressure 2023-04-03 13:15:00 75 mm[Hg] [facility] Heart rate 2023-04-03 13:15:00 79 /min [facility] Body temperature 2023-04-03 13:15:00 36.67 Jenny [facility] Respiratory rate 2023-04-03 13:15:00 18 /min [facility] Oxygen saturation in Arterial blood by Pulse oximetry 2023-04-03 13:15:00 97 /min [facility] Body height 2023-04-03 05:24:00 170.2 cm [facility] Body weight 2023-03-30 07:44:00 113.399 kg [facility] BMI 2023-03-30 07:44:00 39.16 kg/m2 [facility] Systolic blood pressure 2023-04-01 17:13:00 160 mm[Hg] [facility] Diastolic blood pressure 2023-04-01 17:13:00 79 mm[Hg] [facility] Heart rate 2023-04-01 17:13:00 62 /min [facility] Body temperature 2023-04-01 17:13:00 36.11 Jenny [facility] Respiratory rate 2023-04-01 17:13:00 18 /min [facility] Oxygen saturation in Arterial blood by Pulse oximetry 2023-04-01 17:13:00 98 /min [facility] Body weight 2023-03-30 07:44:00 113.399 kg [facility] BMI 2023-03-30 07:44:00 41.60 kg/m2 [facility] Systolic blood pressure 2023-03-30 06:36:00 195 mm[Hg] [facility] Diastolic blood pressure 2023-03-30 06:36:00 94 mm[Hg] [facility] Heart rate 2023-03-30 06:36:00 61 /min [facility] Respiratory rate 2023-03-30 06:36:00 20 /min [facility] Oxygen saturation in Arterial blood by Pulse oximetry 2023-03-30 06:36:00 99 /min [facility] Body temperature 2023-03-30 02:22:00 37.5 Jenny [facility] Body height 2023-03-30 02:22:00 165.1 cm [facility] Body weight 2023-03-30 02:22:00 113.399 kg [facility] BMI 2023-03-30 02:22:00 41.60 kg/m2 [facility] height 2023-01-08 10:20:00 65 [in_i] Commo n [facility] weight 2023-01-08 10:20:00 265.7 [lb_av] Co mmon [facility] temperature 2023-01-08 10:20:00 96.5 [degF] Com [facility] bmi 2023-01-08 10:20:00 44.21 kg/m2 Comm on [facility] oximetry 2023-01-08 10:20:00 99 % Commo n [facility] respiratory rate 2023-01-08 10:20:00 18 /min Common [facility] blood pressure systolic 2023-01-08 10:20:00 127 mm[Hg] [facility] blood pressure diastolic 2023-01-08 10:20:00 65 mm[Hg] [facility] height 2023-01-08 11:00:00 65 [in_i] Commo n [facility] weight 2023-01-08 11:00:00 265.7 [lb_av] Co mmon [facility] temperature 2023-01-08 11:00:00 96.5 [degF] Com [facility] bmi 2023-01-08 11:00:00 44.21 kg/m2 Comm on [facility] oximetry 2023-01-08 11:00:00 99 % Commo n [facility] respiratory rate 2023-01-08 11:00:00 18 /min Common [facility] blood pressure systolic 2023-01-08 11:00:00 127 mm[Hg] [facility] blood pressure diastolic 2023-01-08 11:00:00 65 mm[Hg] [facility] height 2022-12-23 09:20:00 65 [in_i] Commo n [facility] weight 2022-12-23 09:20:00 270.6 [lb_av] Co mmon [facility] temperature 2022-12-23 09:20:00 97.3 [degF] Com mon [facility] bmi 2022-12-23 09:20:00 45.03 kg/m2 Comm on [facility] oximetry 2022-12-23 09:20:00 97 % Commo n [facility] respiratory rate 2022-12-23 09:20:00 17 /min Common [facility] blood pressure systolic 2022-12-23 09:20:00 130 mm[Hg] [facility] blood pressure diastolic 2022-12-23 09:20:00 61 mm[Hg] [facility] Systolic blood pressure 2022-12-17 21:09:00 192 mm[Hg] [facility] Diastolic blood pressure 2022-12-17 21:09:00 100 mm[Hg] [facility] Heart rate 2022-12-17 21:09:00 65 /min [facility] Body temperature 2022-12-17 21:09:00 36.72 Jenny [facility] Respiratory rate 2022-12-17 21:09:00 16 /min [facility] Body height 2022-12-17 21:09:00 165.1 cm [facility] Body weight 2022-12-17 21:09:00 120.203 kg [facility] BMI 2022-12-17 21:09:00 44.10 kg/m2 [facility] Oxygen saturation in Arterial blood by Pulse oximetry 2022-12-17 21:09:00 100 /min [facility] height 2022-10-12 09:40:00 65 [in_i] Commo n [facility] weight 2022-10-12 09:40:00 277 [lb_av] Comm on [facility] temperature 2022-10-12 09:40:00 97.6 [degF] Com mon [facility] bmi 2022-10-12 09:40:00 46.09 kg/m2 Comm on [facility] oximetry 2022-10-12 09:40:00 97 % Commo n [facility] respiratory rate 2022-10-12 09:40:00 16 /min Common [facility] blood pressure systolic 2022-10-12 09:40:00 138 mm[Hg] [facility] blood pressure diastolic 2022-10-12 09:40:00 78 mm[Hg] [facility] height 2022-07-09 10:40:00 65 [in_i] Commo n [facility] weight 2022-07-09 10:40:00 274.8 [lb_av] Co mmon [facility] temperature 2022-07-09 10:40:00 97.5 [degF] Com [facility] bmi 2022-07-09 10:40:00 45.72 kg/m2 Comm on [facility] oximetry 2022-07-09 10:40:00 96 % Commo n [facility] respiratory rate 2022-07-09 10:40:00 17 /min Common [facility] blood pressure systolic 2022-07-09 10:40:00 133 mm[Hg] [facility] blood pressure diastolic 2022-07-09 10:40:00 72 mm[Hg] [facility] height 2022-06-19 13:20:00 65 [in_i] Commo n [facility] weight 2022-06-19 13:20:00 265 [lb_av] Comm on [facility] temperature 2022-06-19 13:20:00 96.4 [degF] Com [facility] bmi 2022-06-19 13:20:00 44.09 kg/m2 Comm on [facility] blood pressure systolic 2022-06-19 13:20:00 138 mm[Hg] [facility] blood pressure diastolic 2022-06-19 13:20:00 73 mm[Hg] [facility] Oxygen saturation in Arterial blood by Pulse oximetry 2022-06-14 04:01:00 98 /min [facility] Systolic blood pressure 2022-06-14 04:01:00 132 mm[Hg] [facility] Diastolic blood pressure 2022-06-14 04:01:00 86 mm[Hg] [facility] Heart rate 2022-06-14 04:01:00 55 /min [facility] acute [facility] Respiratory rate 2022-06-14 04:01:00 12 /min [facility] Body temperature 2022-06-14 01:39:00 37.5 Jenny [facility] Body height 2022-06-14 01:39:00 165.1 cm [facility] Body weight 2022-06-14 01:39:00 122.471 kg [facility] BMI 2022-06-14 01:39:00 44.93 kg/m2 [facility] height 2022-04-09 10:20:00 65 [in_i] Commo n [facility] weight 2022-04-09 10:20:00 282.4 [lb_av] Co mmon [facility] temperature 2022-04-09 10:20:00 97.0 [degF] Com mon [facility] bmi 2022-04-09 10:20:00 46.99 kg/m2 Comm on [facility] oximetry 2022-04-09 10:20:00 96 % Commo n [facility] respiratory rate 2022-04-09 10:20:00 16 /min Common [facility] blood pressure systolic 2022-04-09 10:20:00 131 mm[Hg] [facility] blood pressure diastolic 2022-04-09 10:20:00 61 mm[Hg] [facility] height 2022-04-09 10:20:00 65 [in_i] Commo n [facility] weight 2022-04-09 10:20:00 282.4 [lb_av] Co mmon [facility] temperature 2022-04-09 10:20:00 97.0 [degF] Com [facility] bmi 2022-04-09 10:20:00 46.99 kg/m2 Comm on [facility] oximetry 2022-04-09 10:20:00 96 % Commo n [facility] respiratory rate 2022-04-09 10:20:00 16 /min Common [facility] blood pressure systolic 2022-04-09 10:20:00 131 mm[Hg] [facility] blood pressure diastolic 2022-04-09 10:20:00 61 mm[Hg] [facility] height 2022-04-09 10:20:00 65 [in_i] Commo n [facility] weight 2022-04-09 10:20:00 282.4 [lb_av] Co mmon [facility] temperature 2022-04-09 10:20:00 97.0 [degF] Com [facility] bmi 2022-04-09 10:20:00 46.99 kg/m2 Comm on [facility] oximetry 2022-04-09 10:20:00 96 % Commo n [facility] respiratory rate 2022-04-09 10:20:00 16 /min Common [facility] blood pressure systolic 2022-04-09 10:20:00 131 mm[Hg] [facility] blood pressure diastolic 2022-04-09 10:20:00 61 mm[Hg] [facility] BP Diastolic 2021-01-07 00:00:00 82 mm[Hg] [facility] Height 2021-01-07 00:00:00 67 [in_i] [facility] BMI (Body Mass Index) 2021-01-07 00:00:00 43.9 kg/m2 [place] [facility] BP Systolic 2021-01-07 00:00:00 138 mm[Hg] Hien membreno [facility] Body Weight 2021-01-07 00:00:00 4480 [oz_av] Aron mcdaniel [facility] Systolic blood pressure 2019-06-17 05:00:00 152 mm[Hg] [facility] Diastolic blood pressure 2019-06-17 05:00:00 90 mm[Hg] [facility] Heart rate 2019-06-17 05:00:00 72 /min [facility] acute [facility] Respiratory rate 2019-06-17 05:00:00 14 /min [facility] Oxygen saturation in Arterial blood by Pulse oximetry 2019-06-17 05:00:00 98 /min [facility] Body temperature 2019-06-17 03:23:00 37.44 Jenny [facility] Body height 2019-06-17 03:23:00 165.1 cm [facility] Body weight 2019-06-17 03:23:00 123.378 kg [facility] BMI 2019-06-17 03:23:00 45.26 kg/m2 [facility] Procedures Procedure Date / Time Performed Performing Clinician Source POCT GLUCOSE (AUTOMATED) 2023-04-03 17:27:00 Shagufta Rivas [facility] POCT GLUCOSE (AUTOMATED) 2023-04-03 13:16:00 Shagufta Rivas [facility] LACTIC ACID WHOLE BLOOD 2023-04-03 11:28:00 Marie Guerrero [facility] C-REACTIVE PROTEIN 2023-04-03 10:27:00 Cesar Juan R [facility] BASIC METABOLIC PANEL (NA, K, CL, CO2, GLUCOSE, BUN, CREATININE, CA) 2023-04-03 10:27:00 Cesar Juan R [facility] CBC WITH DIFF 2023-04-03 10:27:00 Juan R Guerrero [facility] C-REACTIVE PROTEIN 2023-04-03 03:06:00 Cesar [facility] POCT GLUCOSE (AUTOMATED) 2023-04-03 01:36:00 Shagufta Rivas [facility] POCT GLUCOSE (AUTOMATED) 2023-04-02 20:45:00 Shagufta Rivas [facility] POCT GLUCOSE (AUTOMATED) 2023-04-02 20:45:00 Shagufta Rivas [facility] CT HEAD WO CONTRAST 2023-04-02 20:06:00 Ale Horn [facility] CT HEAD WO CONTRAST 2023-04-02 20:06:00 Ale Horn [facility] POCT GLUCOSE (AUTOMATED) 2023-04-02 17:31:00 Shagufta Rivas [facility] POCT GLUCOSE (AUTOMATED) 2023-04-02 17:31:00 Shagufta Rivas [facility] POCT GLUCOSE (AUTOMATED) 2023-04-02 13:10:00 Shagufta Rivas [facility] POCT GLUCOSE (AUTOMATED) 2023-04-02 13:10:00 Shagufta Rivas [facility] LACTIC ACID WHOLE BLOOD 2023-04-02 11:24:00 Marie Guerrero [facility] LACTIC ACID WHOLE BLOOD 2023-04-02 11:24:00 Marie Guerrero [facility] CBC WITH DIFF 2023-04-02 06:52:00 Juan R Guerrero [facility] acute hospital CBC WITH DIFF 2023-04-02 06:52:00 Cesar [facility] TROPONIN I 2023-04-02 06:49:00 [facility] BASIC METABOLIC PANEL (NA, K, CL, CO2, GLUCOSE, BUN, CREATININE, CA) 2023-04-02 06:49:00 Juan R Guerrero [facility] TROPONIN I 2023-04-02 06:49:00 [facility] BASIC METABOLIC PANEL (NA, K, CL, CO2, GLUCOSE, BUN, CREATININE, CA) 2023-04-02 06:49:00 Juan R Guerrero [facility] POCT GLUCOSE (AUTOMATED) 2023-04-02 02:11:00 Marwan, H [facility] POCT GLUCOSE (AUTOMATED) 2023-04-02 02:11[facility] 2023-04-01 23:17:16 Cesar [facility] CT HEAD W CONTRAST 2023-04-01 23:17:16 Cesar [facility] POCT GLUCOSE (AUTOMATED) 2023-04-01 21:48:00 Shagufta Rivas [facility] POCT GLUCOSE (AUTOMATED) 2023-04-01 21:48:00 Shagufta Rivas [facility] FACIAL ABSCESS INCISION AND DRAINAGE 2023-04-01 18:20:00 Evelyn [facility] ORAL CAVITY DEBRIDEMENT 2023-04-01 18:20:00 Evelyn [facility] FACIAL ABSCESS INCISION AND DRAINAGE 2023-04-01 18:20:00 Evelyn [facility] ORAL CAVITY DEBRIDEMENT 2023-04-01 18:20:00 Evelyn [facility] POCT GLUCOSE (AUTOMATED) 2023-04-01 17:15:00 Shagufta Rivas [facility] POCT GLUCOSE (AUTOMATED) 2023-04-01 17:15:00 Shagufta Rivas [facility] POCT GLUCOSE (AUTOMATED) 2023-04-01 13:23:00 Shagufta Rivas [facility] POCT GLUCOSE (AUTOMATED) 2023-04-01 13:23:00 Shagufta Rivas [facility] C-REACTIVE PROTEIN 2023-04-01 10:24:00 [facility] BASIC METABOLIC PANEL (NA, K, CL, CO2, GLUCOSE, BUN, CREATININE, CA) 2023-04-01 10:24[facility]01 [facility] 2023-04-01 10:24:00 [facility] BASIC METABOLIC PANEL (NA, K, CL, CO2, GLUCOSE, BUN, CREATININE, CA) 2023-04-01 10:24:00 Juan R Guerrero [facility] CBC WITH DIFF 2023-04-01 10:24:00 Juan R Guerrero [facility] POCT GLUCOSE (AUTOMATED) 2023-04-01 01:51:00 Shagufta Rivas [facility] POCT GLUCOSE (AUTOMATED) 2023-04-01 01:51:00 Shagufta Rivas [facility] LACTIC ACID WHOLE BLOOD 2023-04-01 00:48:00 Marie Guerrero [facility] LACTIC ACID WHOLE BLOOD 2023-04-01 00:48:00 Marie Guerrero [facility] POCT GLUCOSE (AUTOMATED) 2023-03-31 20:30:00 Shagufta Rivas [facility] POCT GLUCOSE (AUTOMATED) 2023-03-31 20:30:00 Shagufta Rivas [facility] POCT GLUCOSE (AUTOMATED) 2023-03-31 16:48[facility] 2023-03-31 16:48:00 Shagufta Rivas [facility] VANCOMYCIN TROUGH 2023-03-31 16:31:00 Juan R Guerrero [facility] VANCOMYCIN TROUGH 2023-03-31 16:31:00 Juan R Guerrero [facility] POCT GLUCOSE (AUTOMATED) 2023-03-31 12:57:00 [facility] 2023-03-31 12:57:00 Shagufta Rivas [facility] BASIC METABOLIC PANEL (NA, K, CL, CO2, GLUCOSE, BUN, CREATININE, CA) 2023-03-31 07:54:00 Wagner Davis [facility] CBC WITH DIFF 2023-03-31 07:54:00 Wagner Davis [facility] BASIC METABOLIC PANEL (NA, K, CL, CO2, GLUCOSE, BUN, CREATININE, CA) 2023-03-31 07:54:00 Wagner Davis [facility] CBC WITH DIFF 2023-03-31 07:54:00 Wagner Davis [facility] POCT GLUCOSE (AUTOMATED) 2023-03-31 01:50:00 Shagufta Rivas [facility] POCT GLUCOSE (AUTOMATED) 2023-03-31 01:50:00 Shagufta Rivas [facility] POCT GLUCOSE (AUTOMATED) 2023-03-30 19:50:00 Shagufta Rivas [facility] POCT GLUCOSE (AUTOMATED) 2023-03-30 19:50:00 Shagufta Rivas [facility] CT SOFT TISSUE NECK W CONTRAST 2023-03-30 03:53:00 Lit [facility] COMP. METABOLIC PANEL (55603) 2023-03-30 02:55:00 Lit Radha [facility] CBC WITH DIFF 2023-03-30 02:55:00 Lit [facility] ASSIGNMENT OF BENEFITS 2023-03-30 02:48:14 Docto r Unassigned, Sublimity [facility] CONSENT/REFUSAL FOR DIAGNOSIS AND TREATMENT 2023-03-30 02:15:19 Doctor Unassigned, Sublimity [facility] CT CERVICAL SPINE WO CONTRAST 2022-12-17 22:33:17 Melinda Flores F [facility] CT MAXILLOFACIAL/MANDIBLE WO CONTRAST 2022-12-17 22:33:17 Melinda Flores F [facility] CT HEAD WO CONTRAST 2022-12-17 22:33:17 Nick Flores F [facility] XR KNEE 3 VW RIGHT 2022-12-17 22:31:12 Jose Flores F [facility] XR LUMBAR SPINE 2 VW 2022-06-14 03:30:06 Adnerson Castillo [facility] URINALYSIS 2022-06-14 02:33:00 Eduarda Zambrano [facility] NOTICE OF PRIVACY PRACTICES 2022-06-14 01:26:39 Doctor Unassigned, [facility] CONSENT/REFUSAL FOR DIAGNOSIS AND TREATMENT 2022-06-14 01:26:11 Doctor Unassigned, [facility]ubl[facility] MAMMO, screening, digital, bilateral 2021-01-07 00:00:00 [facility] XR, hand 2021-01-07 00:00:00 [facility] XR CHEST 1 VW 2019-06-17 03:51:19 Eduarda Zambrano [facility] LIPASE 2019-06-17 03:49:00 Eduarda Zambrano [facility] TROPONIN I 2019-06-17 03:49:00 Eduarda Zambrano [facility] COMP. METABOLIC PANEL (66425) 2019-06-17 03:49:00 Eduarda Zambrano [facility] CBC WITH DIFFERENTIAL 2019-06-17 03:49:00 Bernarda Zambrano [facility] PROTHROMBIN TIME / INR 2019-06-17 03:49:00 Sahara Zambrano [facility] ACTIVATED PARTIAL THRMPLAS LAUREN 2019-06-17 03:49:00 Eduarda Zambrano [facility] URINALYSIS 2019-06-17 03:49:00 Jonn [facility] N-TERMINAL PRO-BNP 2019-06-17 03:49:00 Jonn Carver [facility] NOTICE OF PRIVACY PRACTICES 2019-06-17 03:26:57 Doctor Unassigned, [facility] EKG-12 LEAD 2019-06-17 03:26:51 Eduarda Zambrano [facility] CONSENT/REFUSAL FOR DIAGNOSIS AND TREATMENT 2019-06-17 03:08:48 Doctor Unassigned, Sublimity [facility] [U] XRAY KNEE 3 VWS LEFT [id number] 2017-10-01 00:00:00 [facility] [U] XRAY KNEE 3 VWS LEFT [id number] 2017-09-27 00:00:00 [facility] Total Hysterectomy [facility] Stomach Surgery Procedure [facility] Cholecystectomy [facility] Wrist Replacement [facility] Procedure on Elbow [facility] Operation on Neck [facility] Back Surgery [facility] Knee Surgery [facility] History of knee surgery [facility] of [facility] Plan of Care Planned Activity Planned Date Details Comments Source Diagnostic Test Pending 2021-01-07 00:00:00 CMP, serum or plasma [code = CMP, serum or plasma] [facility] Diagnostic Test Pending 2021-01-07 00:00:00 TSH, serum or plasma [code = TSH, serum or plasma] [facility] Diagnostic Test Pending 2021-01-07 00:00:00 CBC w/ diff [code = CBC w/ diff] [facility] Diagnostic Test Pending 2021-01-07 00:00:00 lipid panel, serum [code = lipid panel, serum] [facility] Encounters Start Date/Time End Date/Time Encounter Type Admission Type Attending [facility] Care Facility Care Department Encounter ID Source 2023-12-22 16:13:00 Outpatient Blanton, Brenda [facility] [id number] [facility] 2023-04-20 09:44:01 Outpatient Blanton, Brenda [facility] [id number] [facility] 2023-04-13 16:56:11 Outpatient KUSHAL [facility] [id number] [facility] 2023-01-06 09:52:03 Outpatient Blanton, Brenda [facility] [id number] [facility] 2022-10-08 11:12:02 Outpatient Blanton, Brenda [facility] [id number] [facility] 2022-04-09 10:19:03 Outpatient Blanton, Brenda [facility] [id number] [facility] 2023-12-23 00:00:00 2023-12-23 00:00:00 OFFICE VISIT ESTAB PT LEVEL 4 [facility] [id number] [facility] 2023-12-23 00:00:00 2023-12-23 00:00:00 SUB ANNUAL [facility] WELLNESS VISIT STLMLC STLMLC [id number] [facility] 2023-12-17 00:00:00 2023-12-17 00:00:00 (TEL) STLMLC STLMLC [id number] [facility] 2023-12-14 00:00:00 2023-12-14 00:00:00 (TEL) STLMLC STLMLC [id number] [facility] 2023-12-03 00:00:00 2023-12-03 00:00:00 (TEL) STLMLC STLMLC [id number] [facility] 2023-08-29 00:00:00 2023-08-29 00:00:00 Outpatient GC_GCBZW_Ka diyala_S [facility] [id number] [facility] 2023-08-24 00:00:00 2023-08-24 00:00:00 (TEL) STLMLC STLMLC [id number] [facility] 2023-08-18 00:00:00 2023-08-18 00:00:00 OFFICE VISIT ESTAB PT LEVEL 4 STLMLC STLMLC [id number] [facility] 2023-08-09 00:00:00 2023-08-09 00:00:00 (TEL) STLMLC STLMLC [id number] [facility] 2023-05-26 00:00:00 2023-05-26 00:00:00 (TEL) STLMLC STLMLC [id number] [facility] 2023-04-21 00:00:00 2023-04-21 00:00:00 OFFICE VISIT ESTAB PT LEVEL 4 STLMLC STLMLC [id number] [facility] 2023-04-13 13:00:00 2023-04-13 13:39:48 Outpatient KUSHAL [facility] [id number] [facility] 2023-04-13 13:00:00 2023-04-13 13:39:48 Office Visit [facility] [place] [place] 1.2.840.114 350.1.13.10 4.2.7.2.686 [id number] [facility] 2023-04-05 00:00:00 2023-04-05 00:00:00 (TEL) STLMLC STLMLC [id number] [facility] 2023-04-05 00:00:00 2023-04-05 00:00:00 Transition of Care Keith Benites JANNIEAndrea VIDAL JOSE 1.2.840.114 350.1.13.10 4.2.7.2.686 [id number] [facility] 2023-03-30 02:45:00 2023-04-03 16:57:00 Inpatient X [facility] [id number] [facility] 2023-03-30 02:45:00 2023-04-03 16:57:00 Hospital Encounter [facility] 1.2.840.114 350.1.13.10 4.2.7.2.686 [id number] [facility] 2023-04-01 12:41:00 2023-04-01 14:10:00 Surgery [facility] 1.2.840.114 350.1.13.10 4.2.7.2.686 [id number] [facility] 2023-03-29 21:24:00 2023-03-30 01:59:00 Emergency X RADHA MURRIETA [facility] ERT [id number] [facility] 2023-03-29 21:24:00 2023-03-30 01:59:00 Emergency Radha Murrieta [facility] 1.2.840.114 350.1.13.10 4.2.7.2.686 [id number] [facility] 2023-03-29 00:00:00 2023-03-29 00:00:00 Orders Only Doctor Unassigned, Sublimity [facility] 1..840.114 350.1.13.10 4.2.7.2.686 [id number] [facility] 2023-01-12 00:00:00 2023-01-12 00:00:00 (TEL) STLMLC STLMLC [id number] [facility] 2023-01-08 00:00:00 2023-01-08 00:00:00 OFFICE VISIT ESTAB PT LEVEL 4 STLMLC STLMLC [id number] [facility] 2023-01-08 00:00:00 2023-01-08 00:00:00 SUB ANNUAL [facility] WELLNESS VISIT STLMLC STLMLC [id number] [facility] 2023-01-06 00:00:00 2023-01-06 00:00:00 (TEL) STLMLC STLMLC [id number] [facility] 2022-12-23 00:00:00 2022-12-23 00:00:00 OFFICE VISIT ESTAB PT LEVEL 3 STLMLC STLMLC [id number] [facility] 2022-12-18 00:00:00 2022-12-18 00:00:00 (TEL) STLMLC STLMLC [id number] [facility] 2022-12-17 15:13:00 2022-12-17 18:23:00 Emergency X MELINDA FLORES [facility] ERT [id number] [facility] 2022-12-17 15:13:00 2022-12-17 18:23:00 Emergency Melinda Flores [facility] 1..840.114 350.1.13.10 4.2.7.2.686 [id number] [facility] 2022-10-16 19:30:00 2022-10-16 20:00:00 CAV Revisit: Gap Closure & Clinical Check-in Evelyn Hanson 2.16.840. [id number] 2.16.840.1. [id number] [facility] 2022-10-14 00:00:00 2022-10-14 00:00:00 Outpatient Ogbechie_L DMG DMG [id number] [facility] 2022-10-14 00:00:00 2022-10-14 00:00:00 Outpatient Ogbechie_L DMG DMG [id number] [facility] 2022-10-14 00:00:00 2022-10-14 00:00:00 Outpatient Ogbechie_L DMG DMG [id number] [facility] 2022-10-12 00:00:00 2022-10-12 00:00:00 OFFICE VISIT ESTAB PT LEVEL 4 STLMLC STLMLC [id number] [facility] 2022-07-13 18:00:00 2022-07-13 19:00:00 CAV Evelyn Hanson 2.16.840. [id number] 2.16.840.1. [id number] H3J [facility] 2022-07-09 00:00:00 2022-07-09 00:00:00 Outpatient Ogbechie_L DMG DMG [id number] [facility] 2022-07-09 00:00:00 2022-07-09 00:00:00 OFFICE VISIT ESTAB PT LEVEL 4 STLMLC STLMLC [id number] [facility] 2022-06-22 00:00:00 2022-06-22 00:00:00 (TEL) STLMLC STLMLC [id number] [facility] 2022-06-19 00:00:00 2022-06-19 00:00:00 OFFICE VISIT EST PT LEVEL 3 STLMLC STLMLC [id number] [facility] 2022-06-16 00:00:00 2022-06-16 00:00:00 (TEL) STLMLC STLMLC [id number] [facility] 2022-06-13 20:27:00 2022-06-13 23:26:00 Emergency X OLEGARIO CASTILLO [facility] ERT [id number] [facility] 2022-06-13 20:27:00 2022-06-13 23:26:00 Emergency Olegario Castillo [facility] 1.2.840.114 350.1.13.10 4.2.7.2.686 [id number] [facility] 2022-05-15 03:59:00 2022-05-15 03:59:00 Outpatient DMG [facility] [id number] [facility] 2022-05-15 00:00:00 2022-05-15 00:00:00 (TEL) STLMLC STLMLC [id number] [facility] 2022-04-09 00:00:00 2022-04-09 00:00:00 OFFICE VISIT ESTAB PT LEVEL 4 STLMLC STLMLC [id number] [facility] 2022-04-09 00:00:00 2022-04-09 00:00:00 SUB ANNUAL [facility] WELLNESS VISIT STLMLC STLMLC [id number] [facility] 2022-04-09 00:00:00 2022-04-09 00:00:00 (TEL) STLMLC STLMLC [id number] [facility] 2022-02-23 12:01:00 2022-02-23 12:01:00 Outpatient DMG [facility] [id number] [facility] 2021-05-16 04:21:00 2021-05-16 04:21:00 Outpatient ERICKSON_R [facility] [id number] 2021-01-07 11:46:00 2021-01-07 11:46:00 Outpatient ERICKSON_R [facility] [id number] [facility] 2021-01-07 00:00:00 2021-01-07 00:00:00 Outpatient Jelani Juarez [facility] [id number] 2021-01-07 00:00:00 2021-01-07 00:00:00 Jelani Juarez, DO: [address], [address], [place] [address] , Ph. [facility], DR. JUAREZ [id number] [facility] 2019-06-16 22:17:47 2019-06-17 00:15:00 Emergency Jonn Carver [facility] 1.2.840.114 350.1.13.10 4.2.7.2.686 [id number] [facility] 2017-10-18 09:30:00 2017-10-18 09:30:00 Appointmen t; CÉSAR RODRIGUEZ M.D. LI-YUNG HING, ANDREW, M.D. [facility] [place] [phone] [place] [facility] 2017-10-04 10:00:00 2017-10-04 10:00:00 Appointmen t; CÉSAR RODRIGUEZ M.D. LI-YUNG HING, ANDREW, M.D. [facility] [place] [phone] [place] [facility] Results Test Description Test Time Test Comments Results Result Co mments Source HEMOGLOBIN [id number] 00:00:00* Test Item Value Reference Range Interpretation Comme nts HEMOGLOBIN A1c (test code = 4548-4) 6.1 % See_Comment H [Automated Dynamics Directa ge] The system which generated this result transmitted reference range: 4.2-5.6 %. The reference range was not used to interpret this result as normal/abnormal. LIPID PANEL WITH REFLEX DIRECT [id number] 00:00:00* Test Item Value Reference Range Interpretation Comme nts CALC LDL CHOL (test code = 55845-4) 102 MG/DL See_Comment H [Automated messa ge] The system which generated this result transmitted reference range: <100 MG/DL. The reference range was not used to interpret this result as normal/abnormal. CHOLESTEROL (test code = 2093-3) 167 MG/DL See_Comment [Automated messa ge] The system which generated this result transmitted reference range: <200 MG/DL. The reference range was not used to interpret this result as normal/abnormal. HDL CHOLESTEROL (test code = 2085-9) 38 MG/DL See_Comment L [Automated messa ge] The system which generated this result transmitted reference range: >39 MG/DL. The reference range was not used to interpret this result as normal/abnormal. RISK RATIO LDL/HDL (test code = 61336-0) 2.68 RATIO See_Comment [Automated message] The system which generated this result transmitted reference range: <3.22 RATIO. The reference range was not used to interpret this result as normal/abnormal. TRIGLYCERIDES (test code = 2571-8) 168 MG/DL See_Comment H [Automated messa ge] The system which generated this result transmitted reference range: <150 MG/DL. The reference range was not used to interpret this result as normal/abnormal. ALBUMIN/CREATININE RATIO, RANDOM [id number] 00:00:00* Test Item Value Reference Range Interpretation Comme nts ALBUMIN, URINE, RANDOM (test code = 05391-8) 2.2 MG/DL NOT ESTAB MG/DL CALC ALBUMIN/CREAT, RND (test code = 79907-6) 7 MG/G See_Comment [Automated messa ge] The system which generated this result transmitted reference range: <30 MG/G. The reference range was not used to interpret this result as normal/abnormal. CREATININE, URINE, CONC. (test code = 2161-8) 330.3 MG/DL NOT ESTAB MG/DL COMPREHENSIVE METABOLIC [id number] 00:00:00* Test Item Value Reference Range Interpretation Comme nts ALBUMIN (test code = 1751-7) 4.3 G/DL See_Comment [Automated messa ge] The system which generated this result transmitted reference range: 3.5-5.2 G/DL. The reference range was not used to interpret this result as normal/abnormal. ALKALINE PHOSPHATASE (test code = 6768-6) 80 U/L See_Comment [Automated message] The system which generated this result transmitted reference range: 40-142 U/L. The reference range was not used to interpret this result as normal/abnormal. BILIRUBIN, TOTAL (test code = 1975-2) 0.5 MG/DL See_Comment [Automated message] The system which generated this result transmitted reference range: <=1.2 MG/DL. The reference range was not used to interpret this result as normal/abnormal. BUN (test code = 3094-0) 20 MG/DL See_Comment [Automated messa ge] The system which generated this result transmitted reference range: 8-23 MG/DL. The reference range was not used to interpret this result as normal/abnormal. CALCIUM (test code = 91379-6) 10.1 MG/DL See_Comment [Automated messa ge] The system which generated this result transmitted reference range: 8.5-10.5 MG/DL. The reference range was not used to interpret this result as normal/abnormal. CALC A/G RATIO (test code = 1759-0) 1.6 RATIO See_Comment [Automated messa ge] The system which generated this result transmitted reference range: 1.0-2.6 RATIO. The reference range was not used to interpret this result as normal/abnormal. CALC BUN/CREAT (test code = 3097-3) 17 RATIO See_Comment [Automated messa ge] The system which generated this result transmitted reference range: 6-28 RATIO. The reference range was not used to interpret this result as normal/abnormal. CALC GLOBULIN (test code = 58598-9) 2.7 G/DL See_Comment [Automated messa ge] The system which generated this result transmitted reference range: 1.9-3.7 G/DL. The reference range was not used to interpret this result as normal/abnormal. CARBON DIOXIDE (test code = 1963-8) 23 MEQ/L See_Comment [Automated messa ge] The system which generated this result transmitted reference range: 19-31 MEQ/L. The reference range was not used to interpret this result as normal/abnormal. CHLORIDE (test code = 2075-0) 102 MEQ/L See_Comment [Automated messa ge] The system which generated this result transmitted reference range: 95-107 MEQ/L. The reference range was not used to interpret this result as normal/abnormal. CREATININE (test code = 2160-0) 1.20 MG/DL See_Comment [Automated messa ge] The system which generated this result transmitted reference range: 0.60-1.30 MG/DL. The reference range was not used to interpret this result as normal/abnormal. eGFR (2020 CKD-EPI) (test code = 87361-5) 48 ML/MIN/1.73 See_Comment L [Automated messa ge] The system which generated this result transmitted reference range: >60 ML/MIN/1.73. The reference range was not used to interpret this result as normal/abnormal. GLUCOSE (test code = 1558-6) 95 MG/DL See_Comment [Automated messa ge] The system which generated this result transmitted reference range: 70-99 MG/DL. The reference range was not used to interpret this result as normal/abnormal. POTASSIUM (test code = 2823-3) 5.0 MEQ/L See_Comment [Automated messa ge] The system which generated this result transmitted reference range: 3.5-5.4 MEQ/L. The reference range was not used to interpret this result as normal/abnormal. PROTEIN, TOTAL (test code = 2885-2) 7.0 G/DL See_Comment [Automated messa ge] The system which generated this result transmitted reference range: 6.1-8.3 G/DL. The reference range was not used to interpret this result as normal/abnormal. AST (test code = 1920-8) 31 U/L See_Comment [Automated messa ge] The system which generated this result transmitted reference range: 9-40 U/L. The reference range was not used to interpret this result as normal/abnormal. ALT (test code = 1742-6) 28 U/L See_Comment [Automated messa ge] The system which generated this result transmitted reference range: 5-40 U/L. The reference range was not used to interpret this result as normal/abnormal. SODIUM (test code = 2951-2) 138 MEQ/L See_Comment [Automated messa ge] The system which generated this result transmitted reference range: 133-146 MEQ/L. The reference range was not used to interpret this result as normal/abnormal. CBC W/AUTO [id number] 00:00:00* Test Item Value Reference Range Interpretation Comme nts NUCLEATED RBCS (test code = 95407-4) 0.0 /100 WBC'S See_Comment [Automated messa ge] The system which generated this result transmitted reference range: 0.0 /100 WBC'S. The reference range was not used to interpret this result as normal/abnormal. ABSOLUTE EOSINOPHILS (test code = 51964-0) 0.17 K/UL See_Comment [Automated messa ge] The system which generated this result transmitted reference range: 0.00-0.50 K/UL. The reference range was not used to interpret this result as normal/abnormal. ABSOLUTE LYMPHOCYTES (test code = 61404-7) 1.43 K/UL See_Comment [Automated messa ge] The system which generated this result transmitted reference range: 1.00-4.00 K/UL. The reference range was not used to interpret this result as normal/abnormal. ABSOLUTE MONOCYTES (test code = 84892-3) 0.43 K/UL See_Comment [Automated messa ge] The system which generated this result transmitted reference range: 0.2-3.8 K/UL. The reference range was not used to interpret this result as normal/abnormal. ABSOLUTE NEUTROPHILS (test code = 39108-6) 2.96 K/UL See_Comment [Automated messa ge] The system which generated this result transmitted reference range: 1.50-7.50 K/UL. The reference range was not used to interpret this result as normal/abnormal. BASOPHILS (test code = 70222-9) 0.8 % EOSINOPHILS (test code = 37616-4) 3.4 % HEMATOCRIT (test code = 43900-2) 34.6 % See_Comment [Automated messa ge] The system which generated this result transmitted reference range: 34.0-45.0 %. The reference range was not used to interpret this result as normal/abnormal. HEMOGLOBIN (test code = 718-7) 11.5 G/DL See_Comment [Automated messa ge] The system which generated this result transmitted reference range: 11.5-15.5 G/DL. The reference range was not used to interpret this result as normal/abnormal. LYMPHOCYTES (test code = 10933-1) 28.3 % MCH (test code = 61747-9) 29.9 PG See_Comment [Automated messa ge] The system which generated this result transmitted reference range: 25.0-33.0 PG. The reference range was not used to interpret this result as normal/abnormal. MCHC (test code = 41841-2) 33.2 G/DL See_Comment [Automated messa ge] The system which generated this result transmitted reference range: 31.0-36.0 G/DL. The reference range was not used to interpret this result as normal/abnormal. MCV (test code = 38244-3) 90.1 fL See_Comment [Automated messa ge] The system which generated this result transmitted reference range: 80.0-99.0 fL. The reference range was not used to interpret this result as normal/abnormal. MONOCYTES (test code = 33619-5) 8.5 % NEUTROPHILS (test code = 67926-8) 58.6 % PLATELET COUNT (test code = 16994-8) 224 K/UL See_Comment [Automated messa ge] The system which generated this result transmitted reference range: 130-400 K/UL. The reference range was not used to interpret this result as normal/abnormal. RBC (test code = 28309-1) 3.84 M/UL See_Comment [Automated messa ge] The system which generated this result transmitted reference range: 3.80-5.40 M/UL. The reference range was not used to interpret this result as normal/abnormal. RDW (test code = 10477-3) 13.9 % See_Comment [Automated messa ge] The system which generated this result transmitted reference range: 11.5-15.0 %. The reference range was not used to interpret this result as normal/abnormal. WBC (test code = 78576-7) 5.1 K/UL See_Comment [Automated messa ge] The system which generated this result transmitted reference range: 3.5-11.0 K/UL. The reference range was not used to interpret this result as normal/abnormal. HEMOGLOBIN [id number] 00:00:00* Test Item Value Reference Range Interpretation Comme nts HEMOGLOBIN A1c (test code = 4548-4) 6.2 % See_Comment H [Automated messa ge] The system which generated this result transmitted reference range: 4.2-5.6 %. The reference range was not used to interpret this result as normal/abnormal. LIPID PANEL WITH REFLEX DIRECT [id number] 00:00:00* Test Item Value Reference Range Interpretation Comme nts CALC LDL CHOL (test code = 09598-3) 78 MG/DL See_Comment [Automated messa ge] The system which generated this result transmitted reference range: <100 MG/DL. The reference range was not used to interpret this result as normal/abnormal. CHOLESTEROL (test code = 2093-3) 136 MG/DL See_Comment [Automated messa ge] The system which generated this result transmitted reference range: <200 MG/DL. The reference range was not used to interpret this result as normal/abnormal. HDL CHOLESTEROL (test code = 2085-9) 33 MG/DL See_Comment L [Automated messa ge] The system which generated this result transmitted reference range: >39 MG/DL. The reference range was not used to interpret this result as normal/abnormal. RISK RATIO LDL/HDL (test code = 15147-1) 2.36 RATIO See_Comment [Automated message] The system which generated this result transmitted reference range: <3.22 RATIO. The reference range was not used to interpret this result as normal/abnormal. TRIGLYCERIDES (test code = 2571-8) 148 MG/DL See_Comment [Automated messa ge] The system which generated this result transmitted reference range: <150 MG/DL. The reference range was not used to interpret this result as normal/abnormal. ALBUMIN/CREATININE RATIO, RANDOM [id number] 00:00:00* Test Item Value Reference Range Interpretation Comme nts ALBUMIN, URINE, RANDOM (test code = 51989-2) 1.2 MG/DL NOT ESTAB MG/DL CALC ALBUMIN/CREAT, RND (test code = 81188-2) 8 MG/G See_Comment [Automated messa ge] The system which generated this result transmitted reference range: <30 MG/G. The reference range was not used to interpret this result as normal/abnormal. CREATININE, URINE, CONC. (test code = 2161-8) 155.6 MG/DL NOT ESTAB MG/DL COMPREHENSIVE METABOLIC [id number] 00:00:00* Test Item Value Reference Range Interpretation Comme nts ALBUMIN (test code = 1751-7) 3.8 G/DL See_Comment [Automated messa ge] The system which generated this result transmitted reference range: 3.5-5.2 G/DL. The reference range was not used to interpret this result as normal/abnormal. ALKALINE PHOSPHATASE (test code = 6768-6) 69 U/L See_Comment [Automated message] The system which generated this result transmitted reference range: 40-142 U/L. The reference range was not used to interpret this result as normal/abnormal. BILIRUBIN, TOTAL (test code = 1975-2) 0.5 MG/DL See_Comment [Automated message] The system which generated this result transmitted reference range: <=1.2 MG/DL. The reference range was not used to interpret this result as normal/abnormal. BUN (test code = 3094-0) 16 MG/DL See_Comment [Automated messa ge] The system which generated this result transmitted reference range: 8-23 MG/DL. The reference range was not used to interpret this result as normal/abnormal. CALCIUM (test code = 26035-0) 9.6 MG/DL See_Comment [Automated messa ge] The system which generated this result transmitted reference range: 8.5-10.5 MG/DL. The reference range was not used to interpret this result as normal/abnormal. CALC A/G RATIO (test code = 1759-0) 1.3 RATIO See_Comment [Automated messa ge] The system which generated this result transmitted reference range: 1.0-2.6 RATIO. The reference range was not used to interpret this result as normal/abnormal. CALC BUN/CREAT (test code = 3097-3) 15 RATIO See_Comment [Automated messa ge] The system which generated this result transmitted reference range: 6-28 RATIO. The reference range was not used to interpret this result as normal/abnormal. CALC GLOBULIN (test code = 81879-2) 2.9 G/DL See_Comment [Automated messa ge] The system which generated this result transmitted reference range: 1.9-3.7 G/DL. The reference range was not used to interpret this result as normal/abnormal. CARBON DIOXIDE (test code = 1963-8) 29 MEQ/L See_Comment [Automated messa ge] The system which generated this result transmitted reference range: 19-31 MEQ/L. The reference range was not used to interpret this result as normal/abnormal. CHLORIDE (test code = 2075-0) 103 MEQ/L See_Comment [Automated messa ge] The system which generated this result transmitted reference range: 95-107 MEQ/L. The reference range was not used to interpret this result as normal/abnormal. CREATININE (test code = 2160-0) 1.04 MG/DL See_Comment [Automated messa ge] The system which generated this result transmitted reference range: 0.60-1.30 MG/DL. The reference range was not used to interpret this result as normal/abnormal. eGFR (2020 CKD-EPI) (test code = 83655-6) 57 ML/MIN/1.73 See_Comment L [Automated messa ge] The system which generated this result transmitted reference range: >60 ML/MIN/1.73. The reference range was not used to interpret this result as normal/abnormal. GLUCOSE (test code = 1558-6) 132 MG/DL See_Comment H [Automated messa ge] The system which generated this result transmitted reference range: 70-99 MG/DL. The reference range was not used to interpret this result as normal/abnormal. POTASSIUM (test code = 2823-3) 3.5 MEQ/L See_Comment [Automated messa ge] The system which generated this result transmitted reference range: 3.5-5.4 MEQ/L. The reference range was not used to interpret this result as normal/abnormal. PROTEIN, TOTAL (test code = 2885-2) 6.7 G/DL See_Comment [Automated messa ge] The system which generated this result transmitted reference range: 6.1-8.3 G/DL. The reference range was not used to interpret this result as normal/abnormal. AST (test code = 1920-8) 59 U/L See_Comment H [Automated messa ge] The system which generated this result transmitted reference range: 9-40 U/L. The reference range was not used to interpret this result as normal/abnormal. ALT (test code = 1742-6) 30 U/L See_Comment [Automated messa ge] The system which generated this result transmitted reference range: 5-40 U/L. The reference range was not used to interpret this result as normal/abnormal. SODIUM (test code = 2951-2) 143 MEQ/L See_Comment [Automated messa ge] The system which generated this result transmitted reference range: 133-146 MEQ/L. The reference range was not used to interpret this result as normal/abnormal. POCT GLUCOSE (AUTOMATED)2023-04-03 17:27:56* Test Item Value Reference Range Interpretation Comme nts POCT GLU (test code = 2046561108) 148 mg/dL 70-110 H Lab Interpretation (test cod e = 36898-7) Abnormal [facility] [id number] 13:53:51* Test Item Value Reference Range Interpretation Comme nts CRP (test code = 0561357098) 6.2 mg/dL <=0.8 H Lab Interpretation (test cod e = 01593-9) Abnormal [facility] GLUCOSE (AUTOMATED)2023-04-03 13:17:33* Test Item Value Reference Range Interpretation Comme nts POCT GLU (test code = 0346189381) 167 mg/dL 70-110 H Notified Provide r Lab Interpretation (test code = 03669-2) Abnormal [facility] Whole [id number] 11:39:45* Test Item Value Reference Range Interpretation Comme nts LACTIC ACID (test code = 6880718758) 1.11 mmol/L 0.50-2.20 QUES Lab Interpretation (test cod e = 05149-5) Normal [facility] GLUCOSE (AUTOMATED)2023-04-03 01:39:07* Test Item Value Reference Range Interpretation Comme nts POCT GLU (test code = 9373272658) 107 mg/dL 70-110 Lab Interpretation (test cod e = 63127-7) Normal [facility] GLUCOSE (AUTOMATED)2023-04-02 20:46:40* Test Item Value Reference Range Interpretation Comme nts POCT GLU (test code = 2656219238) 124 mg/dL 70-110 H Notified Provide r Lab Interpretation (test code = 77666-8) Abnormal [facility] GLUCOSE (AUTOMATED)2023-04-02 20:46:40* Test Item Value Reference Range Interpretation Comme nts POCT GLU (test code = 1183143522) 124 mg/dL 70-110 H Notified Provide r Lab Interpretation (test code = 07931-6) Abnormal [facility] GLUCOSE (AUTOMATED)2023-04-02 17:33:22* Test Item Value Reference Range Interpretation Comme nts POCT GLU (test code = 8553492869) 122 mg/dL 70-110 H Notified Provide r Lab Interpretation (test code = 62647-6) Abnormal [facility]2023-04-02 17:33:22* Test Item Value Reference Range Interpretation Comme nts POCT GLU (test code = 7242407871) 122 mg/dL 70-110 H Notified Provide r Lab Interpretation (test code = 63944-8) [id number] 15:40:21* Test Item Value Reference Range Interpretation Comme nts TROPONIN I (test code = 0293012091) 0.021 ng/mL <=0.034 MIKEL (test code = MIKEL) Reference (Normal) Range (defined by the 99th percentile reference limit): <= 0.034 ng/mL Note: Cardiac troponin begins to rise 3-4 hours after the onset of ischemia. Repeat in 4-6 hours if the sample was drawn within 3-4 hours of the onset of the symptom and found normal. Diagnosis of myocardial injury is made with acute changes in cTn concentrations with at least one serial sample above the 99th percentile upper reference limit (URL), taken together with the patient's clinical presentation. Biotin has been reported to cause a negative bias, interpret results relative to patient's use of biotin. Lab Interpretation (test code = 60412-0) Normal [facility] [id number] 15:40:21* Test Item Value Reference Range Interpretation Comme nts TROPONIN I (test code = 6570743824) 0.021 ng/mL <=0.034 MIKEL (test code = MIKEL) Reference (Normal) Range (defined by the 99th percentile reference limit): <= 0.034 ng/mL Note: Cardiac troponin begins to rise 3-4 hours after the onset of ischemia. Repeat in 4-6 hours if the sample was drawn within 3-4 hours of the onset of the symptom and found normal. Diagnosis of myocardial injury is made with acute changes in cTn concentrations with at least one serial sample above the 99th percentile upper reference limit (URL), taken together with the patient's clinical presentation. Biotin has been reported to cause a negative bias, interpret results relative to patient's use of biotin. Lab Interpretation (test code = 88499-6) Normal [facility] GLUCOSE (AUTOMATED)2023-04-02 13:11:53* Test Item Value Reference Range Interpretation Comme nts POCT GLU (test code = 1876448499) 103 mg/dL 70-110 Lab Interpretation (test cod e = 89672-7) Normal [facility] GLUCOSE (AUTOMATED)2023-04-02 13:11:53* Test Item Value Reference Range Interpretation Comme nts POCT GLU (test code = 4390942116) 103 mg/dL 70-110 Lab Interpretation (test cod e = 62255-4) Normal [facility] Acid Whole [id number] 11:30:52* Test Item Value Reference Range Interpretation Comme nts LACTIC ACID (test code = 1763190645) 1.11 mmol/L 0.50-2.20 QUES Lab Interpretation (test cod e = 32571-5) Normal [facility] Acid Whole [id number] 11:30:52* Test Item Value Reference Range Interpretation Comme nts LACTIC ACID (test code = 1628184033) 1.11 mmol/L 0.50-2.20 QUES Lab Interpretation (test cod e = 93501-2) Normal [facility] METABOLIC PANEL (NA, K, CL, CO2, GLUCOSE, BUN, CREATININE, CA)2023-04-02 10:14:58* Test Item Value Reference Range Interpretation Comme nts NA (test code = 4299401747) 135 mmol/L 135-145 K (test code = 7987121750) 3.5 mmol/L 3.5-5.0 CL (test code = 6387351352) 102 mmol/L 98-108 CO2 TOTAL (test code = 7580660585) 23 mmol/L 23-31 AGAP (test code = 5069251755) 10 2-16 BUN (test code = 5447121249) 12 mg/dL 7-23 GLUCOSE (test code = 7283894391) 103 mg/dL 70-110 CREATININE (test code = 8733793360) 0.72 mg/dL 0.50-1.04 CALCIUM (test code = 7376051742) 8.4 mg/dL 8.6-10.6 L eGFR (test code = 6491390715) 79.6 mL/min/1.73m2 MIKEL (test code = MIKEL) Association of Glomerular Filtration Rate (GFR) and Staging of Kidney Disease* + --+ --+ ------+| GFR (mL/min/1.73 m2) ?| With Kidney Damage ?| ?Without Kidney Damage+ --------+ --------+ +| ?>90 ?| ?Stage one ?| ? Normal ?+ ---+ ---+ -------+| ?60-89 ?| ?Stage two ?| ? Decreased GFR ? + --+ --+ ------+| ?30-59 ?| ?Stage three ?| ? Stage three ? + --+ --+ ------+| ?15-29 ?| ?Stage four ? | ? Stage four ?+ ---+ ---+ -------+| ?<15 (or dialysis) ? ?| ?Stage five ? | ? Stage five ?+ ---+ ---+ -------+ *Each stage assumes the associated GFR level has been in effect for at least three months. ?Stages 1 to 5, with or without kidney disease, indicate chronic kidney disease. Notes: Determination of stages one and two (with eGFR >59mL/min/1.73 m2) requires estimation of kidney damage for at least three months as defined by structural or functional abnormalities of the kidney, manifested by either:Pathological abnormalities or Markers of kidney damage (including abnormalities in the composition of the blood or urine or abnormalities in imaging tests). Lab Interpretation (test code = 74571-8) Abnormal [facility] METABOLIC PANEL (NA, K, CL, CO2, GLUCOSE, BUN, CREATININE, CA)2023-04-02 10:14:58* Test Item Value Reference Range Interpretation Comme nts NA (test code = 6051587724) 135 mmol/L 135-145 K (test code = 0373660941) 3.5 mmol/L 3.5-5.0 CL (test code = 5332318954) 102 mmol/L 98-108 CO2 TOTAL (test code = 4108779665) 23 mmol/L 23-31 AGAP (test code = 1644340068) 10 2-16 BUN (test code = 2802521253) 12 mg/dL 7-23 GLUCOSE (test code = 4071088175) 103 mg/dL 70-110 CREATININE (test code = 5532885880) 0.72 mg/dL 0.50-1.04 CALCIUM (test code = 7608184243) 8.4 mg/dL 8.6-10.6 L eGFR (test code = 6046613652) 79.6 mL/min/1.73m2 MIKEL (test code = MIKEL) Association of Glomerular Filtration Rate (GFR) and Staging of Kidney Disease* + --+ --+ ------+| GFR (mL/min/1.73 m2) ?| With Kidney Damage ?| ?Without Kidney Damage+ --------+ --------+ +| ?>90 ?| ?Stage one ?| ? Normal ?+ ---+ ---+ -------+| ?60-89 ?| ?Stage two ?| ? Decreased GFR ? + --+ --+ ------+| ?30-59 ?| ?Stage three ?| ? Stage three ? + --+ --+ ------+| ?15-29 ?| ?Stage four ? | ? Stage four ?+ ---+ ---+ -------+| ?<15 (or dialysis) ? ?| ?Stage five ? | ? Stage five ?+ ---+ ---+ -------+ *Each stage assumes the associated GFR level has been in effect for at least three months. ?Stages 1 to 5, with or without kidney disease, indicate chronic kidney disease. Notes: Determination of stages one and two (with eGFR >59mL/min/1.73 m2) requires estimation of kidney damage for at least three months as defined by structural or functional abnormalities of the kidney, manifested by either:Pathological abnormalities or Markers of kidney damage (including abnormalities in the composition of the blood or urine or abnormalities in imaging tests). Lab Interpretation (test code = 18084-3) Abnormal [facility] WITH [id number] 08:24:44* Test Item Value Reference Range Interpretation Comme nts WBC (test code = 6690-2) 8.20 See_Comment [Automated [employer]] The system which generated this result transmitted reference range: 4.30 - 11.10 10*3/?L. The reference range was not used to interpret this result as normal/abnormal. RBC (test code = 789-8) 3.55 See_Comment L [Automated messa ge] The system which generated this result transmitted reference range: 3.93 - 5.25 10*6/?L. The reference range was not used to interpret this result as normal/abnormal. HGB (test code = 718-7) 10.4 g/dL 11.6-15.0 L HCT (test code = 4544-3) 32.3 % 35.7-45.2 L MCV (test code = 787-2) 91.0 fL 80.6-95.5 MCH (test code = 785-6) 29.3 pg 25.9-32.8 MCHC (test code = 786-4) 32.2 g/dL 31.6-35.1 RDW-SD (test code = 32301-8) 43.0 fL 39.0-49.9 RDW-CV (test code = 788-0) 12.9 % 12.0-15.5 PLT (test code = 777-3) 232 See_Comment [Automated messa ge] The system which generated this result transmitted reference range: 166 - 358 10*3/?L. The reference range was not used to interpret this result as normal/abnormal. MPV (test code = 31025-0) 11.2 fL 9.5-12.9 NRBC/100 WBC (test code = 2016483969) 0.0 See_Comment [Automated [employer]] The system which generated this result transmitted reference range: 0.0 - 10.0 /100 WBCs. The reference range was not used to interpret this result as normal/abnormal. NRBC x10^3 (test code = 7100492391) See_Comment [Automated messa ge] The system which generated this result transmitted reference range: 10*3/?L. The reference range was not used to interpret this result as normal/abnormal. GRAN MAT (NEUT) % (test code = 770-8) 67.6 % IMM GRAN % (test code = 4443030803) 0.50 % LYMPH % (test code = 736-9) 18.8 % MONO % (test code = 5905-5) 10.6 % EOS % (test code = 713-8) 2.0 % BASO % (test code = 706-2) 0.5 % GRAN MAT x10^3(ANC) (test code = 1011694806) 5.55 10*3/uL 1.88-7.09 IMM GRAN x10^3 (test code = 5226274169) 0.04 10*3/uL 0.00-0.06 LYMPH x10^3 (test code = 731-0) 1.54 10*3/uL 1.32-3.29 MONO x10^3 (test code = 742-7) 0.87 10*3/uL 0.33-0.92 EOS x10^3 (test code = 711-2) 0.16 10*3/uL 0.03-0.39 BASO x10^3 (test code = 704-7) 0.04 10*3/uL 0.01-0.07 Lab Interpretation (test code = 10816-2) Abnormal [facility] WITH [id number] 08:24:44* Test Item Value Reference Range Interpretation Comme nts WBC (test code = 6690-2) 8.20 See_Comment [Automated messa ge] The system which generated this result transmitted reference range: 4.30 - 11.10 10*3/?L. The reference range was not used to interpret this result as normal/abnormal. RBC (test code = 789-8) 3.55 See_Comment L [Automated messa ge] The system which generated this result transmitted reference range: 3.93 - 5.25 10*6/?L. The reference range was not used to interpret this result as normal/abnormal. HGB (test code = 718-7) 10.4 g/dL 11.6-15.0 L HCT (test code = 4544-3) 32.3 % 35.7-45.2 L MCV (test code = 787-2) 91.0 fL 80.6-95.5 MCH (test code = 785-6) 29.3 pg 25.9-32.8 MCHC (test code = 786-4) 32.2 g/dL 31.6-35.1 RDW-SD (test code = 43786-9) 43.0 fL 39.0-49.9 RDW-CV (test code = 788-0) 12.9 % 12.0-15.5 PLT (test code = 777-3) 232 See_Comment [Automated messa ge] The system which generated this result transmitted reference range: 166 - 358 10*3/?L. The reference range was not used to interpret this result as normal/abnormal. MPV (test code = 47322-1) 11.2 fL 9.5-12.9 NRBC/100 WBC (test code = 1308554381) 0.0 See_Comment [Automated [employer]] The system which generated this result transmitted reference range: 0.0 - 10.0 /100 WBCs. The reference range was not used to interpret this result as normal/abnormal. NRBC x10^3 (test code = 9616278684) See_Comment [Automated [employer]] The system which generated this result transmitted reference range: 10*3/?L. The reference range was not used to interpret this result as normal/abnormal. GRAN MAT (NEUT) % (test code = 770-8) 67.6 % IMM GRAN % (test code = 4491400191) 0.50 % LYMPH % (test code = 736-9) 18.8 % MONO % (test code = 5905-5) 10.6 % EOS % (test code = 713-8) 2.0 % BASO % (test code = 706-2) 0.5 % GRAN MAT x10^3(ANC) (test code = 2886432815) 5.55 10*3/uL 1.88-7.09 IMM GRAN x10^3 (test code = 5519695570) 0.04 10*3/uL 0.00-0.06 LYMPH x10^3 (test code = 731-0) 1.54 10*3/uL 1.32-3.29 MONO x10^3 (test code = 742-7) 0.87 10*3/uL 0.33-0.92 EOS x10^3 (test code = 711-2) 0.16 10*3/uL 0.03-0.39 BASO x10^3 (test code = 704-7) 0.04 10*3/uL 0.01-0.07 Lab Interpretation (test code = 50018-6) Abnormal [facility] GLUCOSE (AUTOMATED)2023-04-02 02:12:27* Test Item Value Reference Range Interpretation Comme nts POCT GLU (test code = 1575550605) 94 mg/dL 70-110 Lab Interpretation (test cod e = 85256-5) Normal [facility] GLUCOSE (AUTOMATED)2023-04-02 02:12:27* Test Item Value Reference Range Interpretation Comme nts POCT GLU (test code = 2488594863) 94 mg/dL 70-110 Lab Interpretation (test cod e = 16648-3) Normal [facility] GLUCOSE (AUTOMATED)2023-04-01 21:50:48* Test Item Value Reference Range Interpretation Comme nts POCT GLU (test code = 6348143819) 130 mg/dL 70-110 H Notified Provide r Lab Interpretation (test code = 92551-2) Abnormal [facility] GLUCOSE (AUTOMATED)2023-04-01 21:50:48* Test Item Value Reference Range Interpretation Comme nts POCT GLU (test code = 8198593417) 130 mg/dL 70-110 H Notified Provide r Lab Interpretation (test code = 77900-0) Abnormal [facility] GLUCOSE (AUTOMATED)2023-04-01 17:16:42* Test Item Value Reference Range Interpretation Comme nts POCT GLU (test code = 0321948713) 94 mg/dL 70-110 Notified Provide r Lab Interpretation (test code = 67970-6) Normal [facility] GLUCOSE (AUTOMATED)2023-04-01 17:16:42* Test Item Value Reference Range Interpretation Comme nts POCT GLU (test code = 8857353219) 94 mg/dL 70-110 Notified Provide r Lab Interpretation (test code = 85362-3) Normal [facility]-REACT[facility] [id number] 15:38:56* Test Item Value Reference Range Interpretation Comme nts CRP (test code = 1392703291) 9.1 mg/dL <=0.8 H Lab Interpretation (test cod e = 23466-2) Abnormal [facility]-REACT[facility] [id number] 15:38:56* Test Item Value Reference Range Interpretation Comme nts CRP (test code = 3114992037) 9.1 mg/dL <=0.8 H Lab Interpretation (test cod e = 49776-2) Abnormal [facility] GLUCOSE (AUTOMATED)2023-04-01 13:31:41* Test Item Value Reference Range Interpretation Comme nts POCT GLU (test code = 0657684458) 109 mg/dL 70-110 Notified Provide r Lab Interpretation (test code = 81343-9) Normal [facility] GLUCOSE (AUTOMATED)2023-04-01 13:31:41* Test Item Value Reference Range Interpretation Comme nts POCT GLU (test code = 4990799147) 109 mg/dL 70-110 Notified Provide r Lab Interpretation (test code = 04357-5) Normal [facility] METABOLIC PANEL (NA, K, CL, CO2, GLUCOSE, BUN, CREATININE, CA)2023-04-01 11:33:36* Test Item Value Reference Range Interpretation Comme nts NA (test code = 2004346699) 137 mmol/L 135-145 K (test code = 4411695108) 3.6 mmol/L 3.5-5.0 CL (test code = 3206238032) 104 mmol/L 98-108 CO2 TOTAL (test code = 3509659029) 22 mmol/L 23-31 L AGAP (test code = 4948688297) 11 2-16 BUN (test code = 0778583150) 12 mg/dL 7-23 GLUCOSE (test code = 4236583682) 101 mg/dL 70-110 CREATININE (test code = 8081299956) 0.78 mg/dL 0.50-1.04 CALCIUM (test code = 8795569268) 8.3 mg/dL 8.6-10.6 L eGFR (test code = 7357772974) 72.6 mL/min/1.73m2 MIKEL (test code = MIKEL) Association of Glomerular Filtration Rate (GFR) and Staging of Kidney Disease* + --+ --+ ------+| GFR (mL/min/1.73 m2) ?| With Kidney Damage ?| ?Without Kidney Damage+ --------+ --------+ +| ?>90 ?| ?Stage one ?| ? Normal ?+ ---+ ---+ -------+| ?60-89 ?| ?Stage two ?| ? Decreased GFR ? + --+ --+ ------+| ?30-59 ?| ?Stage three ?| ? Stage three ? + --+ --+ ------+| ?15-29 ?| ?Stage four ? | ? Stage four ?+ ---+ ---+ -------+| ?<15 (or dialysis) ? ?| ?Stage five ? | ? Stage five ?+ ---+ ---+ -------+ *Each stage assumes the associated GFR level has been in effect for at least three months. ?Stages 1 to 5, with or without kidney disease, indicate chronic kidney disease. Notes: Determination of stages one and two (with eGFR >59mL/min/1.73 m2) requires estimation of kidney damage for at least three months as defined by structural or functional abnormalities of the kidney, manifested by either:Pathological abnormalities or Markers of kidney damage (including abnormalities in the composition of the blood or urine or abnormalities in imaging tests). Lab Interpretation (test code = 31735-2) Abnormal [facility] METABOLIC PANEL (NA, K, CL, CO2, GLUCOSE, BUN, CREATININE, CA)2023-04-01 11:33:36* Test Item Value Reference Range Interpretation Comme nts NA (test code = 4643998207) 137 mmol/L 135-145 K (test code = 5114449823) 3.6 mmol/L 3.5-5.0 CL (test code = 3016377981) 104 mmol/L 98-108 CO2 TOTAL (test code = 5974967932) 22 mmol/L 23-31 L AGAP (test code = 5190136410) 11 2-16 BUN (test code = 0017459758) 12 mg/dL 7-23 GLUCOSE (test code = 3389791502) 101 mg/dL 70-110 CREATININE (test code = 7473681320) 0.78 mg/dL 0.50-1.04 CALCIUM (test code = 7810436074) 8.3 mg/dL 8.6-10.6 L eGFR (test code = 7030580491) 72.6 mL/min/1.73m2 MIKEL (test code = MIKEL) Association of Glomerular Filtration Rate (GFR) and Staging of Kidney Disease* + --+ --+ ------+| GFR (mL/min/1.73 m2) ?| With Kidney Damage ?| ?Without Kidney Damage+ --------+ --------+ +| ?>90 ?| ?Stage one ?| ? Normal ?+ ---+ ---+ -------+| ?60-89 ?| ?Stage two ?| ? Decreased GFR ? + --+ --+ ------+| ?30-59 ?| ?Stage three ?| ? Stage three ? + --+ --+ ------+| ?15-29 ?| ?Stage four ? | ? Stage four ?+ ---+ ---+ -------+| ?<15 (or dialysis) ? ?| ?Stage five ? | ? Stage five ?+ ---+ ---+ -------+ *Each stage assumes the associated GFR level has been in effect for at least three months. ?Stages 1 to 5, with or without kidney disease, indicate chronic kidney disease. Notes: Determination of stages one and two (with eGFR >59mL/min/1.73 m2) requires estimation of kidney damage for at least three months as defined by structural or functional abnormalities of the kidney, manifested by either:Pathological abnormalities or Markers of kidney damage (including abnormalities in the composition of the blood or urine or abnormalities in imaging tests). Lab Interpretation (test code = 50457-9) Abnormal [facility] WITH [id number] 10:49:29* Test Item Value Reference Range Interpretation Comme nts WBC (test code = 6690-2) 6.05 See_Comment [Automated [employer]jek[employer]] The system which generated this result transmitted reference range: 4.30 - 11.10 10*3/?L. The reference range was not used to interpret this result as normal/abnormal. RBC (test code = 789-8) 3.33 See_Comment L [Automated [employer]] The system which generated this result transmitted reference range: 3.93 - 5.25 10*6/?L. The reference range was not used to interpret this result as normal/abnormal. HGB (test code = 718-7) 9.8 g/dL 11.6-15.0 L HCT (test code = 4544-3) 30.2 % 35.7-45.2 L MCV (test code = 787-2) 90.7 fL 80.6-95.5 MCH (test code = 785-6) 29.4 pg 25.9-32.8 MCHC (test code = 786-4) 32.5 g/dL 31.6-35.1 RDW-SD (test code = 91985-0) 43.1 fL 39.0-49.9 RDW-CV (test code = 788-0) 13.1 % 12.0-15.5 PLT (test code = 777-3) 197 See_Comment [Automated messa ge] The system which generated this result transmitted reference range: 166 - 358 10*3/?L. The reference range was not used to interpret this result as normal/abnormal. MPV (test code = 18999-3) 10.5 fL 9.5-12.9 NRBC/100 WBC (test code = 1650982771) 0.0 See_Comment [Automated [employer] ssage] The system which generated this result transmitted reference range: 0.0 - 10.0 /100 WBCs. The reference range was not used to interpret this result as normal/abnormal. NRBC x10^3 (test code = 8605027560) See_Comment [Automated messa ge] The system which generated this result transmitted reference range: 10*3/?L. The reference range was not used to interpret this result as normal/abnormal. GRAN MAT (NEUT) % (test code = 770-8) 62.0 % IMM GRAN % (test code = 6888376598) 0.50 % LYMPH % (test code = 736-9) 23.1 % MONO % (test code = 5905-5) 11.6 % EOS % (test code = 713-8) 2.0 % BASO % (test code = 706-2) 0.8 % GRAN MAT x10^3(ANC) (test code = 5618708228) 3.75 10*3/uL 1.88-7.09 IMM GRAN x10^3 (test code = 3234256987) 0.03 10*3/uL 0.00-0.06 LYMPH x10^3 (test code = 731-0) 1.40 10*3/uL 1.32-3.29 MONO x10^3 (test code = 742-7) 0.70 10*3/uL 0.33-0.92 EOS x10^3 (test code = 711-2) 0.12 10*3/uL 0.03-0.39 BASO x10^3 (test code = 704-7) 0.05 10*3/uL 0.01-0.07 Lab Interpretation (test code = 43230-6) Abnormal [facility] WITH [id number] 10:49:29* Test Item Value Reference Range Interpretation Comme nts WBC (test code = 6690-2) 6.05 See_Comment [Automated messa ge] The system which generated this result transmitted reference range: 4.30 - 11.10 10*3/?L. The reference range was not used to interpret this result as normal/abnormal. RBC (test code = 789-8) 3.33 See_Comment L [Automated messa ge] The system which generated this result transmitted reference range: 3.93 - 5.25 10*6/?L. The reference range was not used to interpret this result as normal/abnormal. HGB (test code = 718-7) 9.8 g/dL 11.6-15.0 L HCT (test code = 4544-3) 30.2 % 35.7-45.2 L MCV (test code = 787-2) 90.7 fL 80.6-95.5 MCH (test code = 785-6) 29.4 pg 25.9-32.8 MCHC (test code = 786-4) 32.5 g/dL 31.6-35.1 RDW-SD (test code = 09970-8) 43.1 fL 39.0-49.9 RDW-CV (test code = 788-0) 13.1 % 12.0-15.5 PLT (test code = 777-3) 197 See_Comment [Automated messa ge] The system which generated this result transmitted reference range: 166 - 358 10*3/?L. The reference range was not used to interpret this result as normal/abnormal. MPV (test code = 87249-2) 10.5 fL 9.5-12.9 NRBC/100 WBC (test code = 0014917453) 0.0 See_Comment [Automated me ssage] The system which generated this result transmitted reference range: 0.0 - 10.0 /100 WBCs. The reference range was not used to interpret this result as normal/abnormal. NRBC x10^3 (test code = 5727777778) See_Comment [Automated [employer]] The system which generated this result transmitted reference range: 10*3/?L. The reference range was not used to interpret this result as normal/abnormal. GRAN MAT (NEUT) % (test code = 770-8) 62.0 % IMM GRAN % (test code = 0251960931) 0.50 % LYMPH % (test code = 736-9) 23.1 % MONO % (test code = 5905-5) 11.6 % EOS % (test code = 713-8) 2.0 % BASO % (test code = 706-2) 0.8 % GRAN MAT x10^3(ANC) (test code = 9714193393) 3.75 10*3/uL 1.88-7.09 IMM GRAN x10^3 (test code = 0254029879) 0.03 10*3/uL 0.00-0.06 LYMPH x10^3 (test code = 731-0) 1.40 10*3/uL 1.32-3.29 MONO x10^3 (test code = 742-7) 0.70 10*3/uL 0.33-0.92 EOS x10^3 (test code = 711-2) 0.12 10*3/uL 0.03-0.39 BASO x10^3 (test code = 704-7) 0.05 10*3/uL 0.01-0.07 Lab Interpretation (test code = 56218-6) Abnormal [facility] GLUCOSE (AUTOMATED)2023-04-01 01:52:42* Test Item Value Reference Range Interpretation Comme nts POCT GLU (test code = 2294222425) 86 mg/dL 70-110 Lab Interpretation (test cod e = 17886-4) Normal [facility] GLUCOSE (AUTOMATED)2023-04-01 01:52:42* Test Item Value Reference Range Interpretation Comme nts POCT GLU (test code = 7372742880) 86 mg/dL 70-110 Lab Interpretation (test cod e = 27651-1) [facility] [id number] 00:55:12* Test Item Value Reference Range Interpretation Comme nts LACTIC ACID (test code = 5910856866) 0.95 mmol/L 0.50-2.20 Lab Interpretation (test cod e = 73406-1) [facility] [id number] 00:55:12* Test Item Value Reference Range Interpretation Comme nts LACTIC ACID (test code = 6870957345) 0.95 mmol/L 0.50-2.20 Lab Interpretation (test cod e = 68138-6) Normal [facility] GLUCOSE (AUTOMATED)2023-03-31 20:31:29* Test Item Value Reference Range Interpretation Comme nts POCT GLU (test code = 0969920497) 118 mg/dL 70-110 H Lab Interpretation (test cod e = 46637-8) Abnormal [facility] GLUCOSE (AUTOMATED)2023-03-31 20:31:29* Test Item Value Reference Range Interpretation Comme nts POCT GLU (test code = 8353550309) 118 mg/dL 70-110 H Lab Interpretation (test cod e = 99107-5) Abnormal [facility] GLUCOSE (AUTOMATED)2023-03-31 16:49:43* Test Item Value Reference Range Interpretation Comme nts POCT GLU (test code = 4669966337) 126 mg/dL 70-110 H Lab Interpretation (test cod e = 82858-4) Abnormal [facility] GLUCOSE (AUTOMATED)2023-03-31 16:49:43* Test Item Value Reference Range Interpretation Comme nts POCT GLU (test code = 6252310705) 126 mg/dL 70-110 H Lab Interpretation (test cod e = 52481-9) Abnormal [facility] GLUCOSE (AUTOMATED)2023-03-31 12:58:26* Test Item Value Reference Range Interpretation Comme nts POCT GLU (test code = 9432788982) 136 mg/dL 70-110 H Lab Interpretation (test cod e = 87295-7) Abnormal [facility] GLUCOSE (AUTOMATED)2023-03-31 12:58:26* Test Item Value Reference Range Interpretation Comme nts POCT GLU (test code = 2177797652) 136 mg/dL 70-110 H Lab Interpretation (test cod e = 53498-3) Abnormal [facility] Metabolic Panel (NA, K, CL, CO2, Glucose, BUN, Creatinine, CA)2023-03-31 08:34:27* Test Item Value Reference Range Interpretation Comme nts NA (test code = 6587668807) 136 mmol/L 135-145 K (test code = 6592520200) 4.8 mmol/L 3.5-5.0 Slight hemolysis CL (test code = 4413403732) 99 mmol/L 98-108 CO2 TOTAL (test code = 2640481594) 25 mmol/L -31 AGAP (test code = 2133420779) 12 2-16 BUN (test code = 7049191554) 16 mg/dL 7-23 Slight hemolysis GLUCOSE (test code = 5073774454) 121 mg/dL 70-110 H CREATININE (test code = 3926200433) 0.91 mg/dL 0.50-1.04 CALCIUM (test code = 8081467192) 8.7 mg/dL 8.6-10.6 eGFR (test code = 3264846158) 60.8 mL/min/1.73m2 MIKEL (test code = MIKEL) Association of Glomerular Filtration Rate (GFR) and Staging of Kidney Disease* + -----+ --------+ +| GFR (mL/min/1.73 m2) ?| With Kidney Damage ?| ?Without Kidney Damage+ +------- +---- --+| ?>90 ?| ?Stage one ?| ? Normal ?+ ------+ ---------+--------- +| ?60-89 ?| ?Stage two ?| ? Decreased GFR ? + -----+ --------+ +| ?30-59 ?| ?Stage three ?| ? Stage three ? + -----+ --------+ +| ?15-29 ?| ?Stage four ? | ? Stage four ?+ ------+ ---------+--------- +| ?<15 (or dialysis) ? ?| ?Stage five ? | ? Stage five ?+ ------+ ---------+--------- + *Each stage assumes the associated GFR level has been in effect for at least three months. ?Stages 1 to 5, with or without kidney disease, indicate chronic kidney disease. Notes: Determination of stages one and two (with eGFR >59mL/min/1.73 m2) requires estimation of kidney damage for at least three months as defined by structural or functional abnormalities of the kidney, manifested by either:Pathological abnormalities or Markers of kidney damage (including abnormalities in the composition of the blood or urine or abnormalities in imaging tests). Lab Interpretation (test code = 34232-4) Abnormal [facility] Metabolic Panel (NA, K, CL, CO2, Glucose, BUN, Creatinine, CA)2023-03-31 08:34:27* Test Item Value Reference Range Interpretation Comme nts NA (test code = 4161731364) 136 mmol/L 135-145 K (test code = 5942821599) 4.8 mmol/L 3.5-5.0 Slight hemolysis CL (test code = 8200481843) 99 mmol/L 98-108 CO2 TOTAL (test code = 0576518626) 25 mmol/L 23-31 AGAP (test code = 9571457225) 12 2-16 BUN (test code = 6086489860) 16 mg/dL 7-23 Slight hemolysis GLUCOSE (test code = 2037998958) 121 mg/dL 70-110 H CREATININE (test code = 0811850700) 0.91 mg/dL 0.50-1.04 CALCIUM (test code = 8253886894) 8.7 mg/dL 8.6-10.6 eGFR (test code = 9194391501) 60.8 mL/min/1.73m2 MIKEL (test code = MIKEL) Association of Glomerular Filtration Rate (GFR) and Staging of Kidney Disease* + -----+ --------+ +| GFR (mL/min/1.73 m2) ?| With Kidney Damage ?| ?Without Kidney Damage+ +------- +---- --+| ?>90 ?| ?Stage one ?| ? Normal ?+ ------+ ---------+--------- +| ?60-89 ?| ?Stage two ?| ? Decreased GFR ? + -----+ --------+ +| ?30-59 ?| ?Stage three ?| ? Stage three ? + -----+ --------+ +| ?15-29 ?| ?Stage four ? | ? Stage four ?+ ------+ ---------+--------- +| ?<15 (or dialysis) ? ?| ?Stage five ? | ? Stage five ?+ ------+ ---------+--------- + *Each stage assumes the associated GFR level has been in effect for at least three months. ?Stages 1 to 5, with or without kidney disease, indicate chronic kidney disease. Notes: Determination of stages one and two (with eGFR >59mL/min/1.73 m2) requires estimation of kidney damage for at least three months as defined by structural or functional abnormalities of the kidney, manifested by either:Pathological abnormalities or Markers of kidney damage (including abnormalities in the composition of the blood or urine or abnormalities in imaging tests). Lab Interpretation (test code = 57096-2) Abnormal [facility] with [id number] 08:15:44* Test Item Value Reference Range Interpretation Comme nts WBC (test code = 6690-2) 7.81 See_Comment [Automated [employer]] The system which generated this result transmitted reference range: 4.30 - 11.10 10*3/?L. The reference range was not used to interpret this result as normal/abnormal. RBC (test code = 789-8) 4.01 See_Comment [Automated [employer]] The system which generated this result transmitted reference range: 3.93 - 5.25 10*6/?L. The reference range was not used to interpret this result as normal/abnormal. HGB (test code = 718-7) 11.7 g/dL 11.6-15.0 HCT (test code = 4544-3) 35.9 % 35.7-45.2 MCV (test code = 787-2) 89.5 fL 80.6-95.5 MCH (test code = 785-6) 29.2 pg 25.9-32.8 MCHC (test code = 786-4) 32.6 g/dL 31.6-35.1 RDW-SD (test code = 66376-8) 42.8 fL 39.0-49.9 RDW-CV (test code = 788-0) 13.1 % 12.0-15.5 PLT (test code = 777-3) 211 See_Comment [Automated [employer]] The system which generated this result transmitted reference range: 166 - 358 10*3/?L. The reference range was not used to interpret this result as normal/abnormal. MPV (test code = 17822-6) 10.6 fL 9.5-12.9 NRBC/100 WBC (test code = 3168157673) 0.0 See_Comment [Automated [employer]] The system which generated this result transmitted reference range: 0.0 - 10.0 /100 WBCs. The reference range was not used to interpret this result as normal/abnormal. NRBC x10^3 (test code = 8287062457) See_Comment [Automated messa ge] The system which generated this result transmitted reference range: 10*3/?L. The reference range was not used to interpret this result as normal/abnormal. GRAN MAT (NEUT) % (test code = 770-8) 74.3 % IMM GRAN % (test code = 7301855773) 0.50 % LYMPH % (test code = 736-9) 14.1 % MONO % (test code = 5905-5) 9.3 % EOS % (test code = 713-8) 1.4 % BASO % (test code = 706-2) 0.4 % GRAN MAT x10^3(ANC) (test code = 6804329316) 5.80 10*3/uL 1.88-7.09 IMM GRAN x10^3 (test code = 6973316408) 0.04 10*3/uL 0.00-0.06 LYMPH x10^3 (test code = 731-0) 1.10 10*3/uL 1.32-3.29 L MONO x10^3 (test code = 742-7) 0.73 10*3/uL 0.33-0.92 EOS x10^3 (test code = 711-2) 0.11 10*3/uL 0.03-0.39 BASO x10^3 (test code = 704-7) 0.03 10*3/uL 0.01-0.07 Lab Interpretation (test code = 82322-5) Abnormal [facility] with [id number] 08:15:44* Test Item Value Reference Range Interpretation Comme nts WBC (test code = 6690-2) 7.81 See_Comment [Automated messa ge] The system which generated this result transmitted reference range: 4.30 - 11.10 10*3/?L. The reference range was not used to interpret this result as normal/abnormal. RBC (test code = 789-8) 4.01 See_Comment [Automated messa ge] The system which generated this result transmitted reference range: 3.93 - 5.25 10*6/?L. The reference range was not used to interpret this result as normal/abnormal. HGB (test code = 718-7) 11.7 g/dL 11.6-15.0 HCT (test code = 4544-3) 35.9 % 35.7-45.2 MCV (test code = 787-2) 89.5 fL 80.6-95.5 MCH (test code = 785-6) 29.2 pg 25.9-32.8 MCHC (test code = 786-4) 32.6 g/dL 31.6-35.1 RDW-SD (test code = 97562-7) 42.8 fL 39.0-49.9 RDW-CV (test code = 788-0) 13.1 % 12.0-15.5 PLT (test code = 777-3) 211 See_Comment [Automated messa ge] The system which generated this result transmitted reference range: 166 - 358 10*3/?L. The reference range was not used to interpret this result as normal/abnormal. MPV (test code = 37130-8) 10.6 fL 9.5-12.9 NRBC/100 WBC (test code = 4225811904) 0.0 See_Comment [Automated [employer]] The system which generated this result transmitted reference range: 0.0 - 10.0 /100 WBCs. The reference range was not used to interpret this result as normal/abnormal. NRBC x10^3 (test code = 4192012785) See_Comment [Automated messa ge] The system which generated this result transmitted reference range: 10*3/?L. The reference range was not used to interpret this result as normal/abnormal. GRAN MAT (NEUT) % (test code = 770-8) 74.3 % IMM GRAN % (test code = 8248438506) 0.50 % LYMPH % (test code = 736-9) 14.1 % MONO % (test code = 5905-5) 9.3 % EOS % (test code = 713-8) 1.4 % BASO % (test code = 706-2) 0.4 % GRAN MAT x10^3(ANC) (test code = 6059217383) 5.80 10*3/uL 1.88-7.09 IMM GRAN x10^3 (test code = 5641943663) 0.04 10*3/uL 0.00-0.06 LYMPH x10^3 (test code = 731-0) 1.10 10*3/uL 1.32-3.29 L MONO x10^3 (test code = 742-7) 0.73 10*3/uL 0.33-0.92 EOS x10^3 (test code = 711-2) 0.11 10*3/uL 0.03-0.39 BASO x10^3 (test code = 704-7) 0.03 10*3/uL 0.01-0.07 Lab Interpretation (test code = 62250-6) Abnormal [facility] GLUCOSE (AUTOMATED)2023-03-31 01:57:27* Test Item Value Reference Range Interpretation Comme nts POCT GLU (test code = 7789147050) 94 mg/dL 70-110 Lab Interpretation (test cod e = 54724-9) Normal [facility] GLUCOSE (AUTOMATED)2023-03-31 01:57:27* Test Item Value Reference Range Interpretation Comme nts POCT GLU (test code = 7404964024) 94 mg/dL 70-110 Lab Interpretation (test cod e = 39777-0) Normal [facility] GLUCOSE (AUTOMATED)2023-03-30 20:10:03* Test Item Value Reference Range Interpretation Comme nts POCT GLU (test code = 6546281915) 118 mg/dL 70-110 H Lab Interpretation (test cod e = 67266-3) Abnormal [facility] GLUCOSE (AUTOMATED)2023-03-30 20:10:03* Test Item Value Reference Range Interpretation Comme nts POCT GLU (test code = 5146657631) 118 mg/dL 70-110 H Lab Interpretation (test cod e = 16517-6) Abnormal [facility]. METABOLIC PANEL (03263)2023-03-30 03:28:03* Test Item Value Reference Range Interpretation Comme nts NA (test code = 3565244522) 140 mmol/L 135-145 K (test code = 1395741737) 4.1 mmol/L 3.5-5.0 CL (test code = 9681200440) 101 mmol/L 98-108 CO2 TOTAL (test code = 8639287178) 27 mmol/L 23-31 AGAP (test code = 8213074606) 12 2-16 BUN (test code = 3375956447) 28 mg/dL 7-23 H GLUCOSE (test code = 6754961954) 121 mg/dL 70-110 H CREATININE (test code = 9638881236) 1.16 mg/dL 0.50-1.04 H TOTAL BILI (test code = 5940546732) 0.6 mg/dL 0.1-1.1 CALCIUM (test code = 3659882100) 8.9 mg/dL 8.6-10.6 T PROTEIN (test code = 7813593178) 6.9 g/dL 6.3-8.2 ALBUMIN (test code = 2117019013) 3.8 g/dL 3.5-5.0 ALK PHOS (test code = 5281930854) 88 U/L 34-122 ALTv (test code = 1742-6) 31 U/L 5-35 AST(SGOT) (test code = 0535806876) 31 U/L 13-40 eGFR (test code = 4689313677) 45.9 mL/min/1.73m2 MIKEL (test code = MIKEL) Association of Glomerular Filtration Rate (GFR) and Staging of Kidney Disease* + --+ --+ ------+| GFR (mL/min/1.73 m2) ?| With Kidney Damage ?| ?Without Kidney Damage+ --------+ --------+ +| ?>90 ?| ?Stage one ?| ? Normal ?+ ---+ ---+ -------+| ?60-89 ?| ?Stage two ?| ? Decreased GFR ? + --+ --+ ------+| ?30-59 ?| ?Stage three ?| ? Stage three ? + --+ --+ ------+| ?15-29 ?| ?Stage four ? | ? Stage four ?+ ---+ ---+ -------+| ?<15 (or dialysis) ? ?| ?Stage five ? | ? Stage five ?+ ---+ ---+ -------+ *Each stage assumes the associated GFR level has been in effect for at least three months. ?Stages 1 to 5, with or without kidney disease, indicate chronic kidney disease. Notes: Determination of stages one and two (with eGFR >59mL/min/1.73 m2) requires estimation of kidney damage for at least three months as defined by structural or functional abnormalities of the kidney, manifested by either:Pathological abnormalities or Markers of kidney damage (including abnormalities in the composition of the blood or urine or abnormalities in imaging tests). Lab Interpretation (test code = 14653-7) Abnormal [facility] WITH [id number] 03:19:42* Test Item Value Reference Range Interpretation Comme nts WBC (test code = 6690-2) 9.94 See_Comment [FOLUP] The system which generated this result transmitted reference range: 4.30 - 11.10 10*3/?L. The reference range was not used to interpret this result as normal/abnormal. RBC (test code = 789-8) 4.10 See_Comment [[employer]OLUP] The system which generated this result transmitted reference range: 3.93 - 5.25 10*6/?L. The reference range was not used to interpret this result as normal/abnormal. HGB (test code = 718-7) 12.3 g/dL 11.6-15.0 HCT (test code = 4544-3) 37.4 % 35.7-45.2 MCV (test code = 787-2) 91.2 fL 80.6-95.5 MCH (test code = 785-6) 30.0 pg 25.9-32.8 MCHC (test code = 786-4) 32.9 g/dL 31.6-35.1 RDW-SD (test code = 87308-3) 42.8 fL 39.0-49.9 RDW-CV (test code = 788-0) 13.0 % 12.0-15.5 PLT (test code = 777-3) 249 See_Comment [FOLUP] The system which generated this result transmitted reference range: 166 - 358 10*3/?L. The reference range was not used to interpret this result as normal/abnormal. MPV (test code = 95813-8) 11.1 fL 9.5-12.9 NRBC/100 WBC (test code = 6182185934) 0.0 See_Comment [Automated me ssage] The system which generated this result transmitted reference range: 0.0 - 10.0 /100 WBCs. The reference range was not used to interpret this result as normal/abnormal. NRBC x10^3 (test code = 0754834229) See_Comment [Automated messa ge] The system which generated this result transmitted reference range: 10*3/?L. The reference range was not used to interpret this result as normal/abnormal. GRAN MAT (NEUT) % (test code = 770-8) 70.3 % IMM GRAN % (test code = [id number]) 0.70 % LYMPH % (test code = 736-9) 18.2 % MONO % (test code = 5905-5) 7.9 % EOS % (test code = 713-8) 2.3 % BASO % (test code = 706-2) 0.6 % GRAN MAT x10^3(ANC) (test code = [id number]) 6.98 10*3/uL 1.88-7.09 IMM GRAN x10^3 (test code = 5498537819) 0.07 10*3/uL 0.00-0.06 H LYMPH x10^3 (test code = 731-0) 1.81 10*3/uL 1.32-3.29 MONO x10^3 (test code = 742-7) 0.79 10*3/uL 0.33-0.92 EOS x10^3 (test code = 711-2) 0.23 10*3/uL 0.03-0.39 BASO x10^3 (test code = 704-7) 0.06 10*3/uL 0.01-0.07 Lab Interpretation (test code = 23323-9) Abnormal [facility] 1 [id number] 04:58:35No acute cardiopulmonary abnormality. IBaldomero MD., have reviewed this study and agree with the abovereport.* * * * * * * * ORIGINAL REPORT * * * * * * * * EXAM: XR CHEST 1 VW HISTORY: HTN COMPARISON: None FINDINGS: A 0.6 cm right midlung calcified granuloma is identified. The lungs areotherwise clear without a focal consolidation, pleural effusion, orpneumothorax. The cardiomediastinal s ilhouette is normal. No acute osseous abnormality is identified. ACDF changes are noted. [facility], Radiant Results Inft User - 06/17/2019 12:00 AM CDT* * * * * * * * ORIGINAL REPORT * * * * * * * *EXAM: XR CHEST 1 VWHISTORY: HTN COMPARISON: NoneFINDINGS:A 0.6 cm right midlung calcified granuloma is identified. The lungs areotherwise clear without a focal consolidation, pleural effusion, orpneumothorax.The cardiomediastinal silhouette is normal.No acute osseous abnormality is identified.ACDF changesare noted.IMPRESSIONNo acute cardiopulmonary abnormality.I, Otto Rothman MD., have reviewed this study and agree with the abovereport.[facility] ResourcesTRJOAQUÍN I 2019-06-17 04:36:00* Test Item Value Reference Range Interpretation Comme nts TROPONIN I (test code = 3777066249) <0.012 See_Comment [Automated message] The system which generated this result transmitted reference range: <=0.034 ng/mL. The reference range was not used to interpret this result as normal/abnormal. MIKEL (test code = MIKEL) Equal or Less than 0.034 ng/ml---Normal?Not e: Cardiac troponin begins to rise 3-4 hours after the onset of ischemia. Repeat in 4-6 hours if the sample was drawn within 3-4 hours of the onset of the symptom and found normal. Between 0.035 and 0.120 ng/mL--- Borderline. Questionable myocardial injury or necrosis?Note: Serial measurement may be necessary to confirm or exclude the diagnosis of myocardial injury or necrosis; Clinical correlation (symptoms, EKGs, imaging studies, and others) required; Repeat in 4-6 hours if clinically indicated.? Equal or Higher than 0.121 ng/mL---Abnormal. Myocardial Injury or Necrosis Likely? Biotin has been reported to cause a negative bias, interpret results relative to patient's use of biotin.? ? Lab Interpretation (test code = 44882-2) Normal [facility] ResourcesCOMP. METABOLIC PANEL ([id number])2019-06-17 04:33:00* Test Item Value Reference Range Interpretation Comme nts NA (test code = 2307151675) 139 mmol/L 135-145 K (test code = 4004417589) 4.4 mmol/L 3.5-5 CL (test code = 3310456187) 103 mmol/L 98-108 CO2 TOTAL (test code = 3767255773) 24 mmol/L 23-31 AGAP (test code = 2752696326) 2-16 BUN (test code = 6824139250) 32 mg/dL 7-23 H GLUCOSE (test code = 2933440622) 140 mg/dL 70-110 H CREATININE (test code = 8051896901) 1.34 mg/dL 0.5-1.04 H TOTAL BILI (test code = 6958507615) 0.8 mg/dL 0.1-1.1 CALCIUM (test code = 6737008411) 10.2 mg/dL 8.6-10.6 T PROTEIN (test code = 9480687007) 8.8 g/dL 6.3-8.2 H ALBUMIN (test code = 5452129462) 4.9 g/dL 3.5-5 ALK PHOS (test code = 3441165494) 77 U/L 34-122 ALT(SGPT) (test code = 4205809930) 64 U/L 9-51 H AST(SGOT) (test code = 6747305532) 59 U/L 13-40 H eGFR Calculation (Non-) (test code = 2441600660) mL/min/1.73m2 eGFR Calculation () (test code = 4319987669) mL/min/1.73m2 MIKEL (test code = MIKEL) Association of Glomerular Filtration Rate (GFR) and Staging of Kidney Disease*+ + + +| GFR (mL/min/1.73 m2)?| With Kidney Damage?|?Without Kidney Damage+ --------+ --------+ +|?>90?|?S tage one?|? Normal?+ ---------+ ---------+ +|?60-89? |?Stage two?|? Decreased GFR? + --+ --+ ------+|?30-59?|?Stage three?|? Stage three? + --+ --+ ------+|?15-29?|?Stage four? |? Stage four?+ -------+ -------+ +|?<15 (or dialysis)?|?Stage five? |? Stage five?+ -------+ -------+ +*Each stage assumes the associated GFR level has been in effect for at least three months.?Stages 1 to 5, with or without kidney disease, indicate chronic kidney disease.Notes: Determination of stages one and two (with eGFR >59mL/min/1.73 m2) requires estimation of kidney damage for at least three months as defined by structural or functional abnormalities of the kidney, manifested by either:Pathological abnormalities or Markers of kidney damage (including abnormalities in the composition of the blood or urine or abnormalities in imaging tests). Lab Interpretation (test code = 81781-1) Abnormal [facility] ResourcesLIPASE, [id number] 04:33:00* Test Item Value Reference Range Interpretation Comme nts LIPASE (test code = 6428578884) 126 U/L 0-220 Lab Interpretation (test cod e = 46005-4) Normal [facility] ResourcesN-TERMINAL [id number] 04:32:00* Test Item Value Reference Range Interpretation Comme nts NT-proBNP (test code = 2596883278) 43 pg/mL See_Comment [Automated message] The system which generated this result transmitted reference range: <=125. The reference range was not used to interpret this result as normal/abnormal. MIKEL (test code = MIKEL) Biotin has been reported to cause a negative bias, interpret results relative to patient's use of biotin. Lab Interpretation (test code = 49165-9) Normal [facility] ResourcesURINALYSIS2019-08-17 04:24:00* Test Item Value Reference Range Interpretation Comme nts APPEARANCE (test code = 3907862433) Slightly Cloudy Clear A COLOR (test code = 0405875400) Yellow Yellow PH (test code = 8945651930) 4.8-8.0 SP GRAVITY (test code = 2861641605) >=1.030 1.003-1.030 GLU U QUAL (test code = 8079876259) Negative Negative BLOOD (test code = 2348858746) Small Negative A KETONES (test code = 1021767943) Negative Negative PROTEIN (test code = 2887-8) Negative Negative UROBILIN (test code = 0595067477) 0.2 mg/dL See_Comment [Automated message] The system which generated this result transmitted reference range: 0-1.0 mg/dL. The reference range was not used to interpret this result as normal/abnormal. BILIRUBIN (test code = 9336716490) Negative Negative NITRITE (test code = 2406577976) Negative Negative LEUK ALEKSANDAR (test code = 7932127207) Small Negative A RBC/HPF (test code = 0794844910) See_Comment [Automated message] The system which generated this result transmitted reference range: 0 - 3 HPF. The reference range was not used to interpret this result as normal/abnormal. WBC/HPF (test code = 6862868447) See_Comment H [Automated message] The system which generated this result transmitted reference range: 0 - 5 HPF. The reference range was not used to interpret this result as normal/abnormal. BACTERIA (test code = 4909726064) Moderate Negative A SQ EPITH (test code = 3197475324) HPF Lab Interpretation (test code = 59248-5) Abnormal [facility] ResourcesaPTT2019-08-17 04:16:00* Test Item Value Reference Range Interpretation Comme [facility] APTT Patient (test code = 3173-2) See_Comment [Automated message] The system which generated this result transmitted reference range: 23 - 38 Seconds. The reference range was not used to interpret this result as normal/abnormal. MIKEL (test code = MIKEL) The [facility] patient population mean normal value for aPTT is 30 seconds. Lab Interpretation (test code = 85846-3) Normal [facility] ResourcesPROTHROMBIN TIME / [id number] 04:14:00* Test Item Value Reference Range Interpretation Comme [facility] PROTIME PATIENT (test code = 5964-2) See_Comment [Automated messa ge] The system which generated this result transmitted reference range: 12.0 - 14.7 Seconds. The reference range was not used to interpret this result as normal/abnormal. INR (test code = 6301-6) Normal INR <1.1; Warfarin Therapeutic range 2.0 to 3.0 or 2.5 to 3.5, depending upon the indications. Lab Interpretation (test code = 95927-6) Normal [facility] ResourcesCBC WITH [id number] 04:04:00* Test Item Value Reference Range Interpretation Comme nts WBC (test code = 6690-2) See_Comment [Automated messa ge] The system which generated this result transmitted reference range: 4.30 - 11.10 10*3/?L. The reference range was not used to interpret this result as normal/abnormal. RBC (test code = 789-8) See_Comment H [Automated messa ge] The system which generated this result transmitted reference range: 3.93 - 5.25 10*6/?L. The reference range was not used to interpret this result as normal/abnormal. HGB (test code = 718-7) 15.9 g/dL 11.6-15 H HCT (test code = 4544-3) 48.0 % 35.7-45.2 H MCV (test code = 787-2) 91.3 fL 80.6-95.5 MCH (test code = 785-6) 30.2 pg 25.9-32.8 MCHC (test code = 786-4) 33.1 g/dL 31.6-35.1 RDW-SD (test code = 67041-1) 42.7 fL 39-49.9 RDW-CV (test code = 788-0) 12.8 % 12-15.5 PLT (test code = 777-3) See_Comment [Automated messa ge] The system which generated this result transmitted reference range: 166 - 358 10*3/?L. The reference range was not used to interpret this result as normal/abnormal. MPV (test code = 28552-4) 10.9 fL 9.5-12.9 NRBC/100 WBC (test code = 2262367104) See_Comment [Automated [employer] ss[employer]] The system which generated this result transmitted reference range: 0.0 - 10.0 /100 WBCs. The reference range was not used to interpret this result as normal/abnormal. NRBC x10^3 (test code = 7500899414) <0.01 See_Comment [Automated messa ge] The system which generated this result transmitted reference range: 10*3/?L. The reference range was not used to interpret this result as normal/abnormal. GRAN MAT (NEUT) % (test code = 770-8) 59.7 % IMM GRAN % (test code = 4318514327) 0.70 % LYMPH % (test code = 736-9) 27.3 % MONO % (test code = 5905-5) 10.0 % EOS % (test code = 713-8) 1.6 % BASO % (test code = 706-2) 0.7 % GRAN MAT x10^3(ANC) (test code = 6565340772) 5.97 10*3/uL 1.88-7.09 IMM GRAN x10^3 (test code = 5689330501) 0.07 10*3/uL 0-0.06 H LYMPH x10^3 (test code = 731-0) 2.73 10*3/uL 1.32-3.29 MONO x10^3 (test code = 742-7) 1.00 10*3/uL 0.33-0.92 H EOS x10^3 (test code = 711-2) 0.16 10*3/uL 0.03-0.39 BASO x10^3 (test code = 704-7) 0.07 10*3/uL 0.01-0.07 Lab Interpretation (test code = 60147-0) Abnormal [facility]"
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
--- NOTE | 2024-01-31 15:48 | RAD REPORT ---
EXAM DESCRIPTION: RAD - Tib Fib Right - 01/31/2024 3:38 pm CLINICAL HISTORY: Right leg pain FINDINGS: No fracture is seen
--- NOTE | 2024-01-31 15:48 | RAD REPORT ---
EXAM DESCRIPTION: RAD - Femur Right - 01/31/2024 3:38 pm CLINICAL HISTORY: Leg pain FINDINGS: No fracture is seen. Right knee prosthesis is in good position without evidence of looseni ng If the patient continues to have symptoms to suggest an occult fracture then MRI would be recommended
--- NOTE | 2024-01-31 16:50 | ER ---
Nurse's Notes [facility] Name: Cynthia Brown Age: 73 yrs Sex: Female : 1950 Arrival Date: 01/31/2024 Time: 14:46 Bed 7 Private MD: Darryl Blanton Diagnosis: Pain in right knee Presentation: 01/30 15:02 Chief complaint: Patient states: fell in parking lot going to get a mammogram, felt ko1 like right knee bent backwards, now the leg and foot and tingling. Care prior to arrival: None. Mechanism of Injury: Fall from standing position. Trauma event details: Injury occurred in the [facility], Injury occurred: in a public building. Injury occurred at: 15:06. 15:02 Acuity: LILIAN 3 ko1 15:02 Method Of Arrival: Wheelchair ko1 15:08 Coronavirus screen: At this time, the client does not indicate any symptoms associated ko1 with coronavirus-19. Ebola Screen: No symptoms or risks identified at this time. Initial Sepsis Screen: Does the patient meet any 2 criteria? No. Patient's initial sepsis screen is negative. Does the patient have a suspected source of infection? No. Patient's initial sepsis screen is negative. Risk Assessment: Do you want to hurt yourself or someone else? Patient reports no desire to harm self or others. Onset of symptoms was January 31, 2024. Trauma Activation: Not Applicable Physician: ED Physician; Name: ; Notified At: ; Arrived At: Physician: General Surgeon; Name: ; Notified At: ; Arrived At: Physician: Radiology; Name: ; Notified At: ; Arrived At: Physician: Respiratory; Name: ; Notified At: ; Arrived At: Physician: Lab; Name: ; Notified At: ; Arrived At: Historical: - Allergies: 15:08 Demerol; ko1 15:08 PENICILLINS; ko1 - PMHx: 15:08 Diabetes mellitus; Hypertensive disorder; ko1 - Immunization history: Last tetanus immunization: unknown. - Infectious Disease History:: Denies. - Social history:: Smoking status: Patient denies any tobacco usage or history of. Screenin:02 Abuse screen: Denies threats or abuse. Denies injuries from another. Tuberculosis ko1 screening: No symptoms or risk factors identified. 15:10 [facility] ED Fall Risk Assessment (Adult) History of falling in the last 3 months, ko1 including since admission Yes- single mechanical fall (1 pt) Confusion or Disorientation No (0 pts) Intoxicated or Sedated No (0 pts) Impaired Gait No (0 pts) Mobility Assist Device Used No (0 pt) Altered Elimination No (0 pt) Score/Fall Risk Level 0 - 2 = Low Risk Oriented to surroundings, Maintained a safe environment, Educated pt \T\ family on fall prevention, incl call for assistance when getting out of bed, Assessed \T\ reinforced patient's understanding of fall precautions, Provided non-skid footwear, Hourly rounding (assess needs \T\ fall precautionary measures) done, Used ambulatory aids as needed (educated on \T\ assisted with), Used gait belt as appropriate. Nutritional screening: No deficits noted. Primary Survey: 15:02 NO uncontrolled hemorrhage observed. A: The client is awake and alert. The airway is ko1 patent. The client is alert. Airway: patent. Breathing/Chest: Spontaneous respiratory effort, equal unlabored respirations, breath sounds clear bilaterally, regular pattern, symmetrical chest rise and fall. Circulation: No external hemorrhage present. Regular and strong central pulse, skin warm/dry/normal color. Disability Pupils are equal, round, reactive to light and accommodation. Client is alert. Exposure/Environment: All clothing and personal items were removed. There is no evidence of uncontrolled external bleeding. A warming method has been applied: A warm blanket has been provided to the patient. 17:38 Reassessment Breathing: Spontaneous respiratory effort, equal unlabored respirations, db breath sounds clear bilaterally, regular pattern with symmetrical chest rise and fall. Respiratory effort Spontaneous Unlabored Breath sounds Clear Respiratory pattern Regular Chest inspection Symmetrical. Assessment: 15:02 General: Appears in no apparent distress. Behavior is calm, cooperative, appropriate ko1 for age. Pain: Complains of pain in right knee. 17:25 Reassessment: Patient appears in no apparent distress at this time. Reassessment: db Patient appears in no apparent distress at this time. Patient and/or family updated on plan of care and expected duration. Pain level reassessed. Patient is alert, oriented x 3, equal unlabored respirations, skin warm/dry/pink. Patient states feeling better. Neuro: Level of Consciousness is awake, alert, obeys commands, Oriented to person, place, time, situation. Vital Signs: 15:02 BP 140 / 76; Pulse 84; Resp 18; Pulse Ox 95% on R/A; ko1 16:11 BP 137 / 84; Pulse 60; Resp 16; Pulse Ox 100% ; ko1 17:03 BP 132 / 93; Pulse 63; Resp 18; Pulse Ox 100% ; ko1 17:15 BP 129 / 69; Pulse 60; Resp 18; Pulse Ox 98% on R/A; db Zhao Coma Score: 15:02 Eye Response: spontaneous(4). Motor Response: obeys commands(6). Verbal Response: ko1 oriented(5). Total: 15. Trauma Score (Adult): 15:02 Eye Response: spontaneous(1); Verbal Response: oriented(1); Motor Response: obeys ko1 commands(2); Systolic BP: > 89 mm Hg(4); Respiratory Rate: 10 to 29 per min(4); Russell Score: 15; Trauma Score: 12 ED Course: 14:47 Patient arrived in ED. rg4 14:47 Darryl Blanton DO is Private Physician. rg4 14:48 Jonn Woods MD is Attending Physician. ec2 14:48 Arm band placed on Patient placed in an exam room, on a stretcher. ll1 14:57 Tammy Dunlap, RN is Primary Nurse. ko1 15:02 Patient has correct armband on for positive identification. Bed in low position. Call ko1 light in reach. Side rails up X2. 15:02 Patient maintains SpO2 saturation greater than 95% on room air. ko1 15:06 Triage completed. ko1 15:40 Femur Right XRAY In Process Unspecified. EDMS 15:40 Tib Fib Right XRAY In Process Unspecified. EDMS 15:40 Pelvis XRAY In Process Unspecified. EDMS 17:03 Provided Education on: knee immobilizer. ko1 17:03 No provider procedures requiring assistance completed. Patient did not have IV access ko1 during this emergency room visit. Knee immobilizer applied on right knee. 17:25 Pulse ox on. NIBP on. db 17:38 Thermoregulation: warm blanket given to patient. db Administered Medications: No medications were administered Medication: 15:10 VIS not applicable for this client. ko1 Intake: 17:38 PO: 0ml; Total: 0ml. db Outcome: 16:50 Discharge ordered by . ec2 17:25 Discharged to home ambulatory, db 17:25 Condition: stable 17:25 Discharge instructions given to patient, Instructed on discharge instructions, follow up and referral plans. Prescriptions given X 1, 17:38 Patient's length of stay was not longer than 2 hours. db 17:38 Patient left the ED. db Signatures: Dispatcher [employer] Katerine Wheat4 Kirby Tiwari RN RN ll1 Tammy Dunlap, RICHARD RN ko1 Swathi Sanz RN RN db Jonn Woods MD MD ec2
--- NOTE | 2024-01-31 16:51 | EDPHYS ---
Physician Documentation [facility] Name: Cynthia Brown Age: 73 yrs Sex: Female : 1950 Arrival Date: 01/31/2024 Time: 14:46 Bed 7 Private MD: Kenneth Blantonh ED Physician Jonn Woods HPI: 01/30 15:06 This 73 yrs old Female presents to ER via Wheelchair with complaints of Fall ec2 Injury. 15:06 Patient arrives today for evaluation after a fall. Patient states that she was walking ec2 subsequently felt her right knee gave out. Patient complaining of pain with weightbearing. Patient reports no LOC, no head strike, no head or neck pain, denies any LOC, not on blood thinners. Patient reports no prodromal symptoms, no chest pain no difficulty breathing, no issues with p.o. intake, no nausea or vomiting. Last tetanus 1 year ago.. Historical: - Allergies: 15:08 Demerol; ko1 15:08 PENICILLINS; ko1 - PMHx: 15:08 Diabetes mellitus; Hypertensive disorder; ko1 - Immunization history: Last tetanus immunization: unknown. - Infectious Disease History:: Denies. - Social history:: Smoking status: Patient denies any tobacco usage or history of. ROS: 15:06 Constitutional: as per hpi ec2 Exam: 15:06 Constitutional: GEN: No acute distress HEENT: -Head: no deformities -Eyes: EOMI CV: ec2 regular rate LUNGS: no respiratory distress ABD: non-tender SKIN: no wounds appreciated MSK: No C/T/L spine deformities RUE w/o bony deformity LUE w/o bony deformity RLE with TTP to the distal right femur, TTP to the proximal tib-fib, active range of motion limited, passive range of motion intact. Intact distal neurovascular status. LLE w/o bony deformity NEURO: moves all extremities equally, GCS 15 (E4, V5, M6) Vital Signs: 15:02 BP 140 / 76; Pulse 84; Resp 18; Pulse Ox 95% on R/A; ko1 16:11 BP 137 / 84; Pulse 60; Resp 16; Pulse Ox 100% ; ko1 17:03 BP 132 / 93; Pulse 63; Resp 18; Pulse Ox 100% ; ko1 17:15 BP 129 / 69; Pulse 60; Resp 18; Pulse Ox 98% on R/A; db [place] Coma Score: 15:02 Eye Response: spontaneous(4). Motor Response: obeys commands(6). Verbal Response: ko1 oriented(5). Total: 15. Trauma Score (Adult): 15:02 Eye Response: spontaneous(1); Verbal Response: oriented(1); Motor Response: obeys ko1 commands(2); Systolic BP: > 89 mm Hg(4); Respiratory Rate: 10 to 29 per min(4); [place] Score: 15; Trauma Score: 12 MDM: 14:56 Patient medically screened. ec2 15:06 Data reviewed: vital signs. ED course: Patient arrives today for evaluation of a right ec2 knee injury. Examination remarkable for well-appearing nontoxic dividual is otherwise in no acute distress with MSK findings as noted above. Will obtain radiographs of the pelvis, femur, knee and tib-fib. Evaluate for bony fracture, contusion, ligamentous injury.. 16:23 ED course: Radiographs with no bony fracture identified. Suspect ligamentous injury ec2 versus possible contusion. I had an extensive conversation regarding possible hospitalization given the patient's difficulty with ambulation and her age however patient felt she can manage at home, states that she has a 30-year-old grandson that can help her with her ADLs. Will discharge home, instructed on strict return precautions. Return precautions given. . 04 15:06 Order name: Femur Right XRAY; Complete Time: 16:23 ec2 01/30 15:06 Order name: Tib Fib Right XRAY; Complete Time: 16:23 ec2 01/30 15:08 Order name: Pelvis XRAY; Complete Time: 16:23 ec2 01/30 16:50 Order name: Knee Immobilizer; Complete Time: 17:24 ec2 Administered Medications: No medications were administered Disposition Summary: 01/31/24 16:50 Discharge Ordered Notes: Location: Home ec2 Condition: Stable ec2 Diagnosis - Pain in right knee ec2 Followup: ec2 - With: Private Physician - When: - Reason: Re-evaluation by your physician Discharge Instructions: - Discharge Summary Sheet ec2 - Acute Knee Pain, Adult ec2 Forms: - Medication Reconciliation Form ec2 - Thank You Letter ec2 - Antibiotic Education ec2 - Prescription Opioid Use ec2 - Patient Portal Instructions ec2 - Leadership Thank You Letter ec2 Prescriptions: - methocarbamol 500 mg Oral tablet - take 2 tablets ORAL route 4 times per day; 10 tablet; Refills: 0, Product ec2 Selection Permitted Signatures: Dispatcher [employer] Tammy Mascorro, RN RN ko1 Jonn Woods MD MD ec2 Corrections: (The following items were deleted from the chart) 15: 15:06 Femur Right+RAD.RAD.BRZ ordered. EDMS EDMS 15: 15:06 Knee Right 3 View+RAD.RAD.BRZ ordered. EDMS EDMS 15: 15:06 Tib Fib Right+RAD.RAD.BRZ ordered. EDMS EDMS 15:08 15:08 Pelvis+RAD.RAD.BRZ ordered. EDMS EDMS
[2024-02-01 00:25] VITALS: BP 129/69; O2SAT 98
== END 2024-01-31 17:38 | disposition home or self-care (01) ==
LOC: ER 14:46
DX: M25.561 Pain in right knee (principal); W18.30XA Fall on same level, unspecified, initial encounter; Z88.0 Allergy status to penicillin; Z88.5 Allergy status to narcotic agent
CPT/HCPCS: 72170; 99285

== ENCOUNTER 2024-06-26 11:24 | Emergency (ER) | payer MEDICARE ==
--- OUTSIDE RECORDS SUMMARY | 2024-06-26 11:32 | XMS REPORT | Continuity of Care Document ---
Author Name Unknown Address [address] [facility] [address] [place] [address] [facility] Address [address] [facility] [address] [place] [address] Care Team Providers Care Credit Reporting Clerk Name Role Phone Darryl Blanton Primary Care Physician [phone] Darryl Blanton Attending Clinician Unavailable PHOEBE RIVAS Attending Clinician Unavailable Rebecca Ferris Attending Clinician SU POP Attending Clinician UnavailSu Suggs Attending Clinician + [phone] [email or web address]_S Attending Clinician UnavailPhoebe Mari DDS Attending Clinician [phone] Keith Benites RN Attending Clinician Unavail able RADHA MURRIETA Attending Clinician Unavailable Radha Murrieta MD Attending Clinician [phone] Doctor Unassigned, [place] Attending Clinician U MELINDA Torres Attending Clinician Unavailhoward myranda Flores [facility] OFFICERMelinda Attending Clinician Evelyn Hanson Attending Clinician Ogemeli_L Attending Clinician Unavailable CATIA CASTILLO Attending Clinician Unavailable Catia Castillo NP Attending Clinician [phone] ERRADHA_R Attending Clinician Unavailable Jelani Juarez Attending Clinician [phone] Jonn Craft Attending Clinician [phone] CÉSAR RODRIGUEZ M.D. Attending Clinician [facility] Admitting Clinician Unavailable [email or web address]_Kajane_S Admitting Clinician Unavailhoward myranda Rivas DDS [facility] Admitting Clinician [phone] MELINDA FLORES Admitting Clinician Unavailhoward myranda Hanson_Nadine Admitting Clinician Unavailable CATIA CASTILLO Admitting Clinician Unavailable LAVERNE Admitting Clinician Unavailable Payers Payer Name Policy Type Policy Number Effective Date Expirati on Date Source [employer] MEDIC[employer]AGE PLAN [id number] 2022 00:00:00 [facility] (MEDICARE REPLACEMENT HMO) [id number] 2022 00:00:00 [employer] - MEDICARE COMPLETE (MEDICARE REPLACEMENT HMO) [id number] Problems Condition Name Condition Details Condition Category Status Onset Date Resolution Date Last Treatment Date Treating Clinician Comments Source Skin lesion of scalp Skin lesion of scalp Disease Active 04-13 00:00: 00 Overview: Formattin g of this note might be different from the original. Added automatic ally from request for surgery [id number] [facility] Scalp mass Scalp mass Disease Active 04-01 00:00: 00 [facility] Sublingual abscess Sublingual abscess Disease Active 03-30 00:00: 00 [facility] Generalize d osteoarthr itis of hand Generalize d osteoarthr itis of hand Disease Active 01-07 00:00: 00 [facility] Osteochond shaista Osteochond shaista Problem Active 01-07 00:00: 00 [facility] Arthritis of left knee Arthritis of Left Knee Problem Active 06-13 00:00: 00 [facility] Hypertensi ve disorder Hypertensi ve Disorder Problem Active 2018-11 00:00: 00 [facility] Mixed anxiety and depressive disorder Mixed Anxiety and Depressive Disorder Problem Active 2018-11 00:00: 00 [facility] [id number] Diabetic polyneurop athy associated with type 2 diabetes mellitus Problem [facility] [id number] Reactive depression Problem [facility] Atrophy of vagina Atrophy of vagina Problem [facility] [id number] Mixed stress and urge urinary incontinen ce Problem [facility] [id number] Body mass index (BMI) of 40.1 to 44.9 in adult Problem [facility] [id number] Allergic rhinitis, unspecifie d seasonalit y, unspecifie d trigger Problem [facility] [id number] History of squamous cell carcinoma of skin Problem [facility] [id number] Sleep disorder Problem [facility] [id number] Fatigue, unspecifie d type Problem [facility] [id number] Mixed hyperlipid emia Problem [facility] [id number] Essential (primary) hypertensi on Problem [facility] [id number] Anxiety Problem [facility] [id number] Type 2 diabetes mellitus with hyperglyce shira, without long-term current use of insulin Problem [facility] [id number] Other chronic pain Problem [facility] [id number] Low back pain Problem [facility] [id number] Morbid (severe) obesity due to excess calories Problem [facility] [id number] Type 2 diabetes mellitus with diabetic chronic kidney disease Problem [facility] [id number] Chronic kidney disease, stage 3 unspecifie d Problem [facility] [id number] Age-relate d osteoporos is without current pathologic al fracture Problem [facility] History of arthritis History of arthritis Problem [...] [facility] No known active problems No known active problems Disease [facility] Allergies, Adverse Reactions, Alerts Allergy Name Allergy Type Status Severity Reaction(s) Onset Date Inactive Date Treating Clinician Comments Source CODEINE DRUG INGREDI Active Unknown-Cmnt 06-13 00:00: 00 [facility] Codeine Drug Allergy Active Unknown - See comments 06-13 00:00: 00 [facility] Meperidi ne Hcl Propensi ty to adverse reaction s Active Nausea and/or Vomiting 07-24 00:00: 00 [facility] MEPERIDI NE HCL DRUG INGREDI Active N/V 07-24 00:00: 00 [facility] PENICILL IN DRUG INGREDI Active Rash 07-24 00:00: 00 [facility] Penicill in Propensi ty to adverse reaction s Active Rash 07-24 00:00: 00 [facility] Penicill in Penicill in Active Unknown [facility] meperidi ne meperidi ne Active Unknown [facility] Demerol Drug Allergy Active [facility] Demerol Allergy to substanc e Active [facility] PENICILL INS Allergy to substanc e Active [facility] Codeine Allergy to substanc e Active [facility] ibuprofe n drug allergy Active [facility] Penicill ins drug allergy Active [facility] Social History Social Habit Start Date Stop Date Quantity Comments Source History of Tobacco Use [facility] Sex Assigned At [facility] History SDOH Alcohol Std Drinks [facility] History SDOH Alcohol Binge [facility] History SDOH Social Connections Get Together [facility] History SDOH Social Connections [facility] History SDOH Social Connections Membership [facility] History SDOH Social Connections Meetings [facility] Alcohol Frequency 2023-03-31 00:00:00 2023-03-31 00:00:00 1 [facility] History SDOH Social Connections Phone 2023-03-31 00:00:00 2023-03-31 00:00:00 5 [facility] History SDOH Social Connections Living 2023-03-31 00:00:00 2023-03-31 00:00:00 4 [facility] History SDOH Physical Activity DPW 2023-03-31 00:00:00 2023-03-31 00:00:00 0 [facility] History SDOH Physical Activity MPS 2023-03-31 00:00:00 2023-03-31 00:00:00 0 [facility] History SDOH Financial 2023-03-31 00:00:00 2023-03-31 00:00:00 5 [facility] History SDOH Food Worry 2023-03-31 00:00:00 2023-03-31 00:00:00 1 [facility] History SDOH Food Scarcity 2023-03-31 00:00:00 2023-03-31 00:00:00 1 [facility] History SDOH Transport Med 2023-03-31 00:00:00 2023-03-31 00:00:00 2 [facility] History SDOH Transport Non-Med 2023-03-31 00:00:00 2023-03-31 00:00:00 2 [facility] History SDOH Housing Unable to Pay 2023-03-31 00:00:00 2023-03-31 00:00:00 2 [facility] History SDOH Housing Places Lived 2023-03-31 00:00:00 2023-03-31 00:00:00 1 [facility] History SDOH Housing Homeless Last Year 2023-03-31 00:00:00 2023-03-31 00:00:00 2 [facility] History of Social function 2023-03-31 00:00:00 2023-03-31 00:00:00 [facility] Exposure to SARS-CoV-2 (event) 2023-03-20 00:00:00 2023-03-30 22:18:00 Not sure [facility] Tobacco use and exposure 2023-03-30 00:00:00 2023-03-30 00:00:00 Smokeless tobacco non-user [facility] Smoking Status Start Date Stop Date Source Never smoked tobacco [facility] Tobacco smoking consumption unknown [facility] Medications Ordered Medication Name Filled Medication Name Start Date Stop Date Current Medication? Ordering Clinician Indication Dosage Frequency Signature (SIG) Comments Components Source ondansetron (ZOFRAN-ODT ) disintegrat ing tablet 4 mg 06-22 02:00: 00 06-22 02:20 :00 No 4mg 4 mg, Oral, ONCE, 1 dose, On Wed06/21/24 at 2100, Routine [facility] acetaminoph en (TYLENOL) tablet 1,000 mg 06-22 02:00: 00 06-22 02:20 :00 No 1000mg 1,000 mg, Oral, ONCE, 1 dose, On Wed06/21/24 at 2100, NILS [facility] traMADol HCl 50 MG traMADol HCl 50 MG 405 00:00: 00 No 1{table t_as_ne eded} QD traMADol HCl 50 MG Ozempic (1 MG/DOSE) 4 MG/3ML Ozempic (1 MG/DOSE) 4 MG/3ML 2022-11 0-18 00:00: 00 No Ozempic (1 MG/DOSE) 4 MG/3ML famotidine 20 mg tablet 6-13 13:22: 22 Yes 1 tablet at bedtime as needed Orally Once a day [facility] hydrOXYzine 25 mg capsule 04-13 13:22: 22 Yes 1 capsule as needed Orally every 12 hrs PRN Itching [facility] LORazepam 0.5 mg tablet 04-13 13:21: 20 Yes lorazepam 0.5 mg tablet PRN [facility] LORazepam 0.5 mg tablet 04-03 16:57: 28 Yes lorazepam 0.5 mg tablet PRN [facility] vancomycin (VANCOCIN) 1,500 mg in NaCl 0.9% (NS) 500 mL VIAL-MATE IV piggyback 04-03 13:30: 00 04-07 01:29 :00 No 15mg/kg 1,500 mg (rounded from 1,701 mg = 15 mg/kg ?113.4 kg), IV Piggyback, Q12H ABX, 7 doses, First dose (after last reorder) on Wed04/03/23 at 0830, Last dose on Wed04/06/23 at 0830, Administer over 90 Minutes, 500 mL
Reas on for Anti-Infec tive: Surgical Prophylaxi s
Surgi jesús Prophylaxi s: Oral and/or Maxillofac ial
Dur ation of therapy: within 24 hours of surgery [facility] KCL (KLOR-CON M20) tablet 40 mEq 04-03 13:00: 00 04-03 14:30 :00 No 40meq 40 mEq, Oral, ONCE, 1 dose, On Wed04/03/23 at 0800, Routine [facility] carvedilol (COREG) 1.25 mg/mL oral suspension 6.25 mg 04-02 22:00: 00 Yes 6.25mg 6.25 mg, Oral, BID MEALS, First dose (after last modificati on) on Wed04/02/23 at 1700, Until Discontinu ed, Routine [facility] lisinopriL (PRINIVIL,Z ESTRIL) tablet 40 mg 04-02 17:45: 00 Yes 40mg 40 mg, Oral, DAILY, First dose (after last modificati on) on Wed04/02/23 at 1245, Until Discontinu ed, Routine [facility] iopamidol (ISOVUE 370-500 mL) injection 80 mL 04-01 23:00: 00 04-01 22:49 :00 No [id number] 80mL 80 mL, Intravenou s, ONCE, 1 dose, On Wed04/01/23 at 1800, Routine [facility] hydralAZINE (APRESOLINE ) injection 5 mg 04-01 22:03: 07 Yes 5mg 5 mg, Slow IV Push, Q4HPRN, Starting on Wed04/01/23 at 1703, Until Discontinu ed, Routine, DBP=>100; SBP=>180 [facility] labetaloL (NORMODYNE) injection 20 mg 04-01 20:40: 00 04-01 20:44 :00 No 20mg 20 mg, Slow IV Push, ONCE, 1 dose, On Wed04/01/23 at 1545, NILS [facility] FENTanyl PF (SUBLIMAZE (PF)) injection 25 mcg 04-01 19:32: 39 04-01 20:30 :00 No 25ug 25 mcg, Slow IV Push, Q5MIN PRN, 4 doses, Starting on Wed04/01/23 at 1432, Until Wed04/01/23 at 1530, Routine, Pain (scale 4-6), PACU [facility] carvedilol (COREG) 1.25 mg/mL oral suspension 12.5 mg 03-31 22:00: 00 04-02 17:42 :31 No 12.5mg 12.5 mg, Oral, BID MEALS, First dose (after last modificati on) on Wed03/31/23 at 1700, Until Discontinu ed, Routine [facility] proMETHazin e (PHENERGAN) 12.5 mg in NS 50 mL IV piggyback (CNR) 03-31 17:41: 46 Yes 12.5mg 12.5 mg, IV Piggyback, at 200 mL/hr Administer over 15 Minutes, Q4HPRN, Starting on Wed03/31/23 at 1241, Until Discontinu ed, Routine, N/V unresponsi ve to Ondansetro n [facility] venlafaxine XR (EFFEXOR XR) 24 hr capsule 37.5 mg 03-31 13:00: 00 Yes 37.5mg 37.5 mg, Oral, QAM WITH BREAKFAST, First dose on Wed03/31/23 at 0800, Until Discontinu ed, Routine [facility] metroNIDAZO LE in NaCl (iso-os) (FLAGYL [...] of therapy: within 24 hours of surgery [facility] vancomycin (VANCOCIN) 1,500 mg in NaCl [...] of therapy: within 24 hours of surgery [facility] lactated ringers IV infusion 1,000 mL 03-30 22:15: 00 Yes 1000mL at 42 mL/hr, 1,000 mL, IV Infusion, CONTINUOUS , Starting on Wed03/30/23 at 1715, Until Discontinu ed, Routine [facility] Sliding Scale Insulin - Lispro (HumaLOG) 03-30 22:00: 00 Yes Subcutaneo us, TID MEALS+HS, First dose on Wed03/30/23 at 1700, Until Discontinu ed, Routine [facility] enoxaparin (LOVENOX) injection 40 mg 03-30 22:00: 00 Yes 40mg 40 mg, Subcutaneo us, DAILY, First dose on Wed03/30/23 at 1700, Until Discontinu ed, Routine [facility] carvedilol (COREG) 1.25 mg/mL oral suspension 6.25 mg 03-30 22:00: 00 03-31 15:41 :33 No 6.25mg 6.25 mg, Oral, BID MEALS, First dose on Wed03/30/23 at 1700, Until Discontinu ed, Routine [facility] dextrose 10% (D10W) bolus infusion 250 [...] blood glucose is < 80 mg/dL, repeat.
[facility] glucagon (GLUCAGEN DIAGNOSTIC KIT) injection 1 mg 03-30 19:10: 12 Yes 1mg 1 mg, Intramuscu lar, PRN, Starting on Wed03/30/23 at 1410, Until Discontinu ed, NILS, Blood Glucose < or = 70 mg/dL and patient is NPO, unable to swallow or has mental changes. [facility] LORazepam 0.5 mg tablet 03-30 19:02: 41 Yes lorazepam 0.5 mg tablet PRN [facility] pantoprazol e (PROTONIX) EC tablet 40 mg 03-30 14:00: 00 Yes 40mg 40 mg, Oral, DAILY, First dose on Wed03/30/23 at 0900, Until Discontinu ed, Routine [facility] ondansetron (ZOFRAN (PF)) injection 4 mg 03-30 11:56: 18 Yes 4mg 4 mg, Slow IV Push, Q6HPRN, Nausea and Vomiting (N/V), Starting on Wed03/30/23 at 0656
Do ses of ondansetro n 16 mg and above need to be administer ed via IV piggyback. For Dose >=24mg ECG monitoring is advisable.
[facility] metroNIDAZO LE in NaCl (iso-os) (FLAGYL [...] of therapy: within 24 hours of surgery [facility] ibuprofen (ADVIL CHILDREN'S) 100 mg/5 mL oral suspension 600 mg 03-30 11:00: 00 03-30 22:12 :06 No 600mg 600 mg, Oral, Q6H, First dose on Wed03/30/23 at 0600, Until Discontinu ed, Routine [facility] lactated ringers IV infusion 1,000 mL 03-30 10:30: 00 03-30 22:13 :02 No 1000mL at 100 mL/hr, 1,000 mL, IV Infusion, CONTINUOUS , Starting on Wed03/30/23 at 0530, Until Wed03/30/23 at 1713, Routine [facility] acetaminoph en (TYLENOL) 160 mg/5 mL oral liquid 650 mg 03-30 10:23: 23 Yes 650mg 650 mg, Oral, Q6HPRN, Starting on Wed03/30/23 at 0523, Until Discontinu ed, Routine, Pain (scale 1-3) [facility] cloNIDine (CATAPRES) tablet 0.2 mg 03-30 06:00: 00 03-30 05:53 :00 No .2mg 0.2 mg, Oral, ONCE, 1 dose, On Wed03/30/23 at 0100, STAT [facility] levoFLOXaci n in D5W (LEVAQUIN) 750 mg/150 mL Piggyback 750 mg 03-30 05:30: 00 03-30 06:44 :00 No 750mg 750 mg, IV Piggyback, ONCE, 1 dose, On Wed03/30/23 at 0030, Administer over 90 Minutes, 150 mL
Reas on for Anti-Infec tive: Documented Infection< br>Documen maura Infection Site: HEENT
D uration of Therapy: Other (see Comments) [facility] iopamidol (ISOVUE 370-500 mL) injection 80 mL 03-30 04:45: 00 03-30 03:47 :00 No [id number] 80mL 80 mL, Intravenou s, ONCE, 1 dose, On Wed03/29/23 at 2345, Routine [facility] acetaminoph en (TYLENOL) tablet 1,000 mg 12-17 23:00: 00 12-17 21:59 :00 No 1000mg 1,000 mg, Oral, ONCE, 1 dose, On Wed12/17/22 at 1700, Routine [facility] ibuprofen 600 mg tablet 12-17 00:00: 00 Yes [id number] 3 600mg Take 1 tablet by mouth every 6 (six) hours as needed for Pain (scale 4-6). [facility] Gabapentin 300 MG Gabapentin 300 MG 06-23 00:00: 00 No 1{capsu le} TID Gabapentin 300 MG Methocarbam ol 500 MG Methocarbam ol 500 MG 06-23 00:00: 00 07-07 00:00 :00 No 1{table t} Methocarba mol 500 MG methocarbam oL (ROBAXIN) tablet 1,500 mg 06-14 03:45: 00 06-14 02:57 :00 No 1500mg 1,500 mg, Oral, ONCE, 1 dose, On 06/13/22 at 2245, Routine [facility] ketorolac (TORADOL) injection 15 mg 06-14 03:07: 00 06-14 03:00 :00 No 15mg 15 mg, Slow IV Push, ONCE, 1 dose, On 06/13/22 at 2215, Routine [facility] FENTanyl PF (SUBLIMAZE (PF)) injection 25 mcg 06-14 03:00: 00 06-14 03:00 :00 No 25ug 25 mcg, Slow IV Push, ONCE, 1 dose, On 06/13/22 at 2200, STAT [facility] dexamethaso ne sod phos PF injection 10 mg 06-14 03:00: 00 06-14 03:00 :00 No 10mg 10 mg, Slow IV Push, ONCE, 1 dose, On 06/13/22 at 2200, 1 mL [facility] methylPREDN ISolone 4 mg tablets 06-14 00:00: 00 Yes [id number] Take by mouth SEE-INSTRU CTIONS. follow package directions [facility] LORazepam 0.5 mg tablet 06-13 20:49: 32 Yes lorazepam 0.5 mg tablet PRN [facility] naproxen 500 mg tablet 06-13 00:00: 00 06-21 04:59 :00 No [id number] 500mg Take 1 tablet by mouth in the morning and 1 tablet in the evening. Take with meals. Do all this for 7 days. [facility] methocarbam oL 500 mg tablet 06-13 00:00: 00 06-19 04:59 :00 No [id number] 1000mg Take 2 tablets by mouth 4 (four) times daily for 5 days. [facility] levoFLOXaci n 750 mg tablet 06-13 00:00: 00 06-17 04:59 :00 No [id number] 750mg Take 1 tablet by mouth every 24 (twenty-fo ur) hours for 3 days. [facility] levoFLOXaci n (LEVAQUIN) tablet 750 mg 06-17 05:45: 00 Yes 750mg 750 mg, Oral, Q24H ABX, First dose on 06/17/19 at 0045, Until Discontinu ed, NILS
Re ason for Anti-Infec tive: Documented Infection< br>Documen maura Infection Site: Urine
D uration of Therapy: Other (see Comments) [facility] phenazopyri dine 200 mg tablet 06-16 00:00: 00 Yes [id number] 200mg Take 1 tablet by mouth 3 (three) times daily. [facility] Nitrofurant oin&Nit. Macrocryst (MACROBID) 100 mg capsule 06-16 00:00: 00 06-27 04:59 :00 No [id number] 100mg Take 1 capsule by mouth 2 (two) times daily for 10 days. [facility] acetaminoph en-codeine 300-30 mg tablet 2016-11 00:00: 00 Yes 1{tbl} Take 1 tablet by mouth every 4 (four) hours as needed for Pain (scale 4-6). [facility] sod chlor-bicar b-squeez bottle (NEILMED SINUS RINSE COMPLETE) pkdv 07-24 00:00: 00 Yes 1{bottl e} Use 1 Bottle in each nostril 2 (two) times daily. Use in hot shower 1 hour before bedtime [facility] loratadine 10 mg tablet 07-24 00:00: 00 06-13 00:00 :00 No 10mg Take 1 tablet by mouth daily. [facility] gabapentin 300 mg capsule gabapentin 300 mg capsule Yes [facility] lisinopril 40 mg tablet lisinopril 40 mg tablet Yes [facility] carvedilol 6.25 mg tablet carvedilol 6.25 mg tablet Yes [facility] prednisolon e acetate 1 % suspension prednisolon e acetate 1 % suspension Yes [facility] dorzolamide hcl-timolol mal 2-0.5 % solution dorzolamide hcl-timolol mal 2-0.5 % solution Yes [facility] venlafaxine hcl er 75 mg capsule er 24 hr venlafaxine hcl er 75 mg capsule er 24 hr Yes [facility] hydrocodone -acetaminop hen 5-325 mg tablet hydrocodone -acetaminop hen 5-325 mg tablet Yes [facility] chlorhexidi ne gluconate 0.12 % solution chlorhexidi ne gluconate 0.12 % solution Yes [facility] metronidazo le 500 mg tablet metronidazo le 500 mg tablet Yes [facility] amlodipine besylate 5 mg tablet amlodipine besylate 5 mg tablet Yes [facility] clindamycin hcl 300 mg capsule clindamycin hcl 300 mg capsule Yes [facility] tramadol hcl 50 mg tablet tramadol hcl 50 mg tablet Yes [facility] Venlafaxine HCl ER 75 mg Venlafaxine HCl ER 75 mg No 1{capsu le_with _food} QD Venlafaxin e HCl ER 75 mg Lisinopril 40 MG Lisinopril 40 MG No 1{table t} QD Lisinopril 40 MG Omeprazole Omeprazole No Omeprazole Carvedilol 6.25 MG Carvedilol 6.25 MG No 1{table t_with_ food} BID Carvedilol 6.25 MG Loratadine 10 MG Loratadine 10 MG No 1{table t} QD Loratadine 10 MG Atorvastati n Calcium 10 MG Atorvastati n Calcium 10 MG No 1{table t} QD Atorvastat in Calcium 10 MG Effexor XR 75 MG Effexor XR 75 MG No 1{capsu le_with _food} QD Effexor XR 75 MG Ozempic (2 MG/DOSE) 8 MG/3ML Ozempic (2 MG/DOSE) 8 MG/3ML No Ozempic (2 MG/DOSE) 8 MG/3ML hydroxyzine hcl 25 mg tablet hydroxyzine hcl 25 mg tablet Yes [facility] Cyclobenzap rine HCl TABS Cyclobenzap rine HCl TABS Yes [facility] Zantac TABS Zantac TABS Yes [facility] Simvastatin TABS Simvastatin TABS Yes [facility] omeprazole [address] omeprazole [address] Yes [facility] carvedilol 6.25 mg tablet TAKE ONE TABLET BY MOUTH TWICE A DAY carvedilol 6.25 mg tablet TAKE ONE TABLET BY MOUTH TWICE A DAY No carvedilol 6.25 mg tablet TAKE ONE TABLET BY MOUTH TWICE A DAY [facility] lisinopril 40 mg tablet TAKE ONE TABLET BY MOUTH DAILY lisinopril 40 mg tablet TAKE ONE TABLET BY MOUTH DAILY No lisinopril 40 mg tablet TAKE ONE TABLET BY MOUTH DAILY [facility] venlafaxine ER 75 mg capsule,ext ended release 24 hr TAKE ONE CAPSULE BY MOUTH DAILY venlafaxine ER 75 mg capsule,ext ended release 24 hr TAKE ONE CAPSULE BY MOUTH DAILY No venlafaxin e ER 75 mg capsule,ex tended release 24 hr TAKE ONE CAPSULE BY MOUTH DAILY [facility] metformin hcl er 750 mg tablet er 24 hr metformin hcl er 750 mg tablet er 24 hr Yes [facility] atorvastati n calcium 10 mg tablet atorvastati n calcium 10 mg tablet Yes [facility] Immunizations Ordered Immunization Name Filled Immunization Name Date Status Comments Source TD Pres-Free 2022-12-17 00:00:00 Completed [facility] TD Pres-Free 2022-12-17 00:00:00 Completed [facility] TD Pres-Free 2022-12-17 00:00:00 Completed [facility] TD Pres-Free 2022-12-17 00:00:00 Completed [facility] TD Pres-Free 2022-12-17 00:00:00 Completed [facility] TD Pres-Free 2022-12-17 00:00:00 Completed [facility] TD Pres-Free 2022-12-17 00:00:00 Completed [facility] TD Pres-Free 2022-12-17 00:00:00 Completed [facility] Fluzone Fluzone 2021-10-08 14:56:00 Completed [facility] Fluzone Fluzone 2021-10-08 14:56:00 Completed [facility] Fluzone Fluzone 2021-10-08 14:56:00 Completed [facility] Fluzone Fluzone 2021-10-08 14:56:00 Completed [facility] Fluzone Fluzone 2021-10-08 14:56:00 Completed [facility] Fluzone Fluzone 2021-10-08 14:56:00 Completed [facility] Fluzone Fluzone 2021-10-08 14:56:00 Completed [facility] Fluzone Fluzone 2021-10-08 14:56:00 Completed [facility] Fluzone Fluzone 2021-10-08 14:56:00 Completed [facility] Fluzone Fluzone 2021-10-08 14:56:00 Completed [facility] SARS-COV-2 COVID-19 MODERNA 12+ YRS VACCINE 2021-03-14 00:00:00 Completed [facility] SARS-COV-2 COVID-19 MODERNA 12+ YRS VACCINE 2021-03-14 00:00:00 Completed [facility] SARS-COV-2 COVID-19 MODERNA 12+ YRS VACCINE 2021-03-14 00:00:00 Completed [facility] SARS-COV-2 COVID-19 MODERNA 12+ YRS VACCINE 2021-03-14 00:00:00 Completed [facility] SARS-COV-2 COVID-19 MODERNA 12+ YRS VACCINE 2021-03-14 00:00:00 Completed [facility] SARS-COV-2 COVID-19 MODERNA 12+ YRS VACCINE 2021-03-14 00:00:00 Completed [facility] SARS-COV-2 COVID-19 MODERNA 12+ YRS VACCINE 2021-03-14 00:00:00 Completed [facility] SARS-COV-2 COVID-19 MODERNA 12+ YRS VACCINE 2021-03-14 00:00:00 Completed [facility] SARS-COV-2 COVID-19 MODERNA VACCINE 2021-03-14 00:00:00 Completed [facility] SARS-COV-2 COVID-19 MODERNA 12+ YRS VACCINE 2021-02-14 00:00:00 Completed [facility] SARS-COV-2 COVID-19 MODERNA 12+ YRS VACCINE 2021-02-14 00:00:00 Completed [facility] SARS-COV-2 COVID-19 MODERNA 12+ YRS VACCINE 2021-02-14 00:00:00 Completed [facility] SARS-COV-2 COVID-19 MODERNA 12+ YRS VACCINE 2021-02-14 00:00:00 Completed [facility] SARS-COV-2 COVID-19 MODERNA 12+ YRS VACCINE 2021-02-14 00:00:00 Completed [facility] SARS-COV-2 COVID-19 MODERNA 12+ YRS VACCINE 2021-02-14 00:00:00 Completed [facility] SARS-COV-2 COVID-19 MODERNA 12+ YRS VACCINE 2021-02-14 00:00:00 Completed [facility] SARS-COV-2 COVID-19 MODERNA 12+ YRS VACCINE 2021-02-14 00:00:00 Completed [facility] SARS-COV-2 COVID-19 MODERNA VACCINE 2021-02-14 00:00:00 Completed [facility] influenza, injectable, quadrivalent influenza, injectable, quadrivalent 2019-08-08 00:00:[address] [facility] SARS-COV-2 COVID-19 MODERNA 12+ YRS VACCINE Unknown Completed [facility] SARS-COV-2 COVID-19 MODERNA 12+ YRS VACCINE Unknown Completed [facility] TD Pres-Free Unknown Completed [facility] Fluzone Fluzone Unknown Completed [facility] Fluzone Fluzone Unknown Completed Common [facility] Fluzone Fluzone Unknown Completed [facility] Fluzone Fluzone Unknown Completed [facility] Fluzone Fluzone Unknown Completed Common [facility] Fluzone Fluzone Unknown Completed [facility] Fluzone Fluzone Unknown Completed [facility] Fluzone Fluzone Unknown Completed [facility] Fluzone Fluzone Unknown Completed [facility] Fluzone Fluzone Unknown Completed [facility] Fluz[facility] Fluzone Unknown Completed [facility] Fluzone Unknown Completed [facility] Fluzone Fluzone Unknown Completed [facility] Fluzone Unknown Completed [facility] Fluzone Unknown Completed [facility] Fluzone Unknown Completed [facility] Fl[facility] Fluzone Unknown Completed [facility] Fluzone Unknown Completed [facility] Fluzone Unknown Completed [facility] Fl[facility] Fluzone Unknown Completed [facility] Fluzone Fluzone Unknown Completed [facility] Fluzone Fluzone Unknown Completed [facility] Fluzone Fluzone Unknown Completed [facility] Fluzone Fluzone Unknown Completed [facility] Fluzone Fluzone Unknown Completed Common [facility] Vital Signs Vital Name Observation Time Observation Value Comments Gaye argeliaestiven Systolic blood pressure 2024-06-22 01:07:00 99 mm[Hg] [facility] Diastolic blood pressure 2024-06-22 01:07:00 78 mm[Hg] [facility] Heart rate 2024-06-22 01:07:00 97 /min [facility] Body temperature 2024-06-22 01:07:00 36.5 Jenny [facility] Respiratory rate 2024-06-22 01:07:00 18 /min [facility] Body height 2024-06-22 01:07:00 165.1 cm [facility] Body weight 2024-06-22 01:07:00 104.781 kg [facility] BMI 2024-06-22 01:07:00 38.44 kg/m2 [facility] Oxygen saturation in Arterial blood by Pulse oximetry 2024-06-22 01:07:00 98 /min [facility] height 2024-04-24 09:50:00 65 [in_i] Commo n [facility] weight 2024-04-24 09:50:00 238.6 [lb_av] Co mmon [facility] temperature 2024-04-24 09:50:00 97.3 [degF] Com [facility] bmi 2024-04-24 09:50:00 39.7 kg/m2 Commo n [facility] oximetry 2024-04-24 09:50:00 98 % Commo n [facility] blood pressure systolic 2024-04-24 09:50:00 130 mm[Hg] Common [facility] blood pressure diastolic 2024-04-24 09:50:00 72 mm[Hg] [facility] height 2024-02-15 10:30:00 65 [in_i] Commo n [facility] weight 2024-02-15 10:30:00 244 [lb_av] Comm on [facility] temperature 2024-02-15 10:30:00 97.4 [degF] Com [facility] bmi 2024-02-15 10:30:00 40.6 kg/m2 Commo n [facility] blood pressure systolic 2024-02-15 10:30:00 134 mm[Hg] Common [facility] blood pressure diastolic 2024-02-15 10:30:00 84 mm[Hg] Common [facility] height 2024-02-04 15:40:00 65 [in_i] Commo n [facility] weight 2024-02-04 15:40:00 249 [lb_av] Comm on [facility] bmi 2024-02-04 15:40:00 41.43 kg/m2 Comm on [facility] height 2023-12-23 09:50:00 65 [in_i] Commo n [facility] weight 2023-12-23 09:50:00 249 [lb_av] Comm on [facility] temperature 2023-12-23 09:50:00 97.2 [degF] Com [facility] bmi 2023-12-23 09:50:00 41.43 kg/m2 Comm on [facility] oximetry 2023-12-23 09:50:00 98 % Commo n [facility] blood pressure systolic 2023-12-23 09:50:00 128 mm[Hg] [facility] blood pressure diastolic 2023-12-23 09:50:00 70 mm[Hg] [facility] height 2023-12-23 09:50:00 65 [in_i] Commo n [facility] weight 2023-12-23 09:50:00 249 [lb_av] Comm on [facility] temperature 2023-12-23 09:50:00 97.2 [degF] Com [facility] bmi 2023-12-23 09:50:00 41.43 kg/m2 Comm on [facility] oximetry 2023-12-23 09:50:00 98 % Commo n [facility] blood pressure systolic 2023-12-23 09:50:00 128 mm[Hg] [facility] blood pressure diastolic 2023-12-23 09:50:00 70 mm[Hg] Common [facility] height 2023-12-23 10:00:00 65 [in_i] Commo n [facility] weight 2023-12-23 10:00:00 249 [lb_av] Comm on [facility] temperature 2023-12-23 10:00:00 97.2 [degF] Com [facility] bmi 2023-12-23 10:00:00 41.43 kg/m2 Comm on [facility] oximetry 2023-12-23 10:00:00 98 % Commo n [facility] blood pressure systolic 2023-12-23 10:00:00 128 mm[Hg] Common [facility] blood pressure diastolic 2023-12-23 10:00:00 70 mm[Hg] Common [facility] height 2023-08-18 08:50:00 65 [in_i] Commo n [facility] weight 2023-08-18 08:50:00 255.0 [lb_av] Co mmon [facility] temperature 2023-08-18 08:50:00 97.6 [degF] Com [facility] bmi 2023-08-18 08:50:00 42.43 kg/m2 Comm on [facility] oximetry 2023-08-18 08:50:00 99 % Commo n [facility] respiratory rate 2023-08-18 08:50:00 18 /min [facility] blood pressure systolic 2023-08-18 08:50:00 129 mm[Hg] [facility] blood pressure diastolic 2023-08-18 08:50:00 71 mm[Hg] Common [facility] height 2023-04-21 15:10:00 65 [in_i] Commo n [facility] weight 2023-04-21 15:10:00 255.4 [lb_av] Co mmon [facility] temperature 2023-04-21 15:10:00 97.7 [degF] Com mon [facility] bmi 2023-04-21 15:10:00 42.5 kg/m2 Commo n [facility] oximetry 2023-04-21 15:10:00 97 % Commo n [facility] respiratory rate 2023-04-21 15:10:00 17 /min Common [facility] blood pressure systolic 2023-04-21 15:10:00 129 mm[Hg] [facility] blood pressure diastolic 2023-04-21 15:10:00 74 mm[Hg] [facility] Systolic blood pressure 2023-04-13 18:19:00 162 mm[Hg] [facility] Diastolic blood pressure 2023-04-13 18:19:00 85 mm[Hg] [facility] Heart rate 2023-04-13 18:19:00 56 /min [facility] Body temperature 2023-04-13 18:19:00 36.94 Jenny [facility] Body height 2023-04-13 18:19:00 165.1 cm [facility] Body weight 2023-04-13 18:19:00 113.399 kg [facility] BMI 2023-04-13 18:19:00 41.60 kg/m2 [facility] Systolic blood pressure 2023-04-03 13:15:00 110 mm[Hg] [facility] Diastolic blood pressure 2023-04-03 13:15:00 75 mm[Hg] [facility] Heart rate 2023-04-03 13:15:00 79 /min [facility] Body temperature 2023-04-03 13:15:00 36.67 Jenny [facility] Respiratory rate 2023-04-03 13:15:00 18 /min [facility] Oxygen saturation in Arterial blood by Pulse oximetry 2023-04-03 13:15:00 97 /min [facility] Body height 2023-04-03 05:24:00 170.2 cm [facility] Body weight 2023-03-30 07:44:00 113.399 kg [facility] BMI 2023-03-30 07:44:00 39.16 kg/m2 [facility] Systolic blood pressure 2023-04-01 17:13:00 160 mm[Hg] [facility] Diastolic blood pressure 2023-04-01 17:13:00 79 mm[Hg] [facility] Heart rate 2023-04-01 17:13:00 62 /min Unive [facility] Body temperature 2023-04-01 17:13:00 36.11 Jenny [facility] Respiratory rate 2023-04-01 17:13:00 18 /min [facility] Oxygen saturation in Arterial blood by Pulse oximetry 2023-04-01 17:13:00 98 /min [facility] Body weight 2023-03-30 07:44:00 113.399 kg [facility] BMI 2023-03-30 07:44:00 41.60 kg/m2 [facility] Systolic blood pressure 2023-03-30 06:36:00 195 mm[Hg] [facility] Diastolic blood pressure 2023-03-30 06:36:00 94 mm[Hg] [facility] Heart rate 2023-03-30 06:36:00 61 /min [facility] Respiratory rate 2023-03-30 06:36:00 20 /min [facility] Oxygen saturation in Arterial blood by Pulse oximetry 2023-03-30 06:36:00 99 /min [facility] Body temperature 2023-03-30 02:22:00 37.5 Jenny [facility] Body height 2023-03-30 02:22:00 165.1 cm [facility] Body weight 2023-03-30 02:22:00 113.399 kg [facility] BMI 2023-03-30 02:22:00 41.60 kg/m2 [facility] height 2023-01-08 10:20:00 65 [in_i] [facility] weight 2023-01-08 10:20:00 265.7 [lb_av] Co mmon [facility] temperature 2023-01-08 10:20:00 96.5 [degF] Com [facility] bmi 2023-01-08 10:20:00 44.21 kg/m2 Comm on [facility] oximetry 2023-01-08 10:20:00 99 % Commo n [facility] respiratory rate 2023-01-08 10:20:00 18 /min Common [facility] blood pressure systolic 2023-01-08 10:20:00 127 mm[Hg] Common [facility] blood pressure diastolic 2023-01-08 10:20:00 65 mm[Hg] Common [facility] height 2023-01-08 11:00:00 65 [in_i] Commo n [facility] weight 2023-01-08 11:00:00 265.7 [lb_av] Co [facility] temperature 2023-01-08 11:00:00 96.5 [degF] Com [facility] bmi 2023-01-08 11:00:00 44.21 kg/m2 Comm on [facility] oximetry 2023-01-08 11:00:00 99 % Commo n [facility] respiratory rate 2023-01-08 11:00:00 18 /min Common [facility] blood pressure systolic 2023-01-08 11:00:00 127 mm[Hg] Common [facility] blood pressure diastolic 2023-01-08 11:00:00 65 mm[Hg] [facility] height 2022-12-23 09:20:00 65 [in_i] Commo n [facility] weight 2022-12-23 09:20:00 270.6 [lb_av] Co [facility] temperature 2022-12-23 09:20:00 97.3 [degF] Com mon [facility] bmi 2022-12-23 09:20:00 45.03 kg/m2 Comm on [facility] oximetry 2022-12-23 09:20:00 97 % Commo n [facility] respiratory rate 2022-12-23 09:20:00 17 /min Common [facility] blood pressure systolic 2022-12-23 09:20:00 130 mm[Hg] [facility] blood pressure diastolic 2022-12-23 09:20:00 61 mm[Hg] [facility] Systolic blood pressure 2022-12-17 21:09:00 192 mm[Hg] [facility] Diastolic blood pressure 2022-12-17 21:09:00 100 mm[Hg] [facility] Heart rate 2022-12-17 21:09:00 65 /min [facility] Body temperature 2022-12-17 21:09:00 36.72 Jenny [facility] Respiratory rate 2022-12-17 21:09:00 16 /min [facility] Body height 2022-12-17 21:09:00 165.1 cm [facility] Body weight 2022-12-17 21:09:00 120.203 kg [facility] BMI 2022-12-17 21:09:00 44.10 kg/m2 [facility] Oxygen saturation in Arterial blood by Pulse oximetry 2022-12-17 21:09:00 100 /min [facility] height 2022-10-12 09:40:00 65 [in_i] Commo n [facility] weight 2022-10-12 09:40:00 277 [lb_av] Comm on [facility] temperature 2022-10-12 09:40:00 97.6 [degF] Com mon [facility] bmi 2022-10-12 09:40:00 46.09 kg/m2 Comm on [facility] oximetry 2022-10-12 09:40:00 97 % Commo n [facility] respiratory rate 2022-10-12 09:40:00 16 /min Common [facility] blood pressure systolic 2022-10-12 09:40:00 138 mm[Hg] Common [facility] blood pressure diastolic 2022-10-12 09:40:00 78 mm[Hg] [facility] height 2022-07-09 10:40:00 65 [in_i] Commo n [facility] weight 2022-07-09 10:40:00 274.8 [lb_av] Co mmon [facility] temperature 2022-07-09 10:40:00 97.5 [degF] Com [facility] bmi 2022-07-09 10:40:00 45.72 kg/m2 Comm on [facility] oximetry 2022-07-09 10:40:00 96 % Commo n [facility] respiratory rate 2022-07-09 10:40:00 17 /min [facility] blood pressure systolic 2022-07-09 10:40:00 133 mm[Hg] [facility] blood pressure diastolic 2022-07-09 10:40:00 72 mm[Hg] Common [facility] height 2022-06-19 13:20:00 65 [in_i] Commo n [facility] weight 2022-06-19 13:20:00 265 [lb_av] Comm on [facility] temperature 2022-06-19 13:20:00 96.4 [degF] Com mon [facility] bmi 2022-06-19 13:20:00 44.09 kg/m2 Comm on [facility] blood pressure systolic 2022-06-19 13:20:00 138 mm[Hg] [facility] blood pressure diastolic 2022-06-19 13:20:00 73 mm[Hg] Common [facility] Diastolic blood pressure 2022-06-14 04:01:00 86 mm[Hg] [facility] Heart rate 2022-06-14 04:01:00 55 /min [facility] Respiratory rate 2022-06-14 04:01:00 12 /min [facility] Oxygen saturation in Arterial blood by Pulse oximetry 2022-06-14 04:01:00 98 /min [facility] Systolic blood pressure 2022-06-14 04:01:00 132 mm[Hg] [facility] Body temperature 2022-06-14 01:39:00 37.5 Jenny [facility] Body height 2022-06-14 01:39:00 165.1 cm [facility] Body weight 2022-06-14 01:39:00 122.471 kg [facility] BMI 2022-06-14 01:39:00 44.93 kg/m2 [facility] height 2022-04-09 10:20:00 65 [in_i] Commo n [facility] weight 2022-04-09 10:20:00 282.4 [lb_av] Co mmon [facility] temperature 2022-04-09 10:20:00 97.0 [degF] Com mon [facility] bmi 2022-04-09 10:20:00 46.99 kg/m2 Comm on [facility] oximetry 2022-04-09 10:20:00 96 % Commo n [facility] respiratory rate 2022-04-09 10:20:00 16 /min Common [facility] blood pressure systolic 2022-04-09 10:20:00 131 mm[Hg] [facility] blood pressure diastolic 2022-04-09 10:20:00 61 mm[Hg] Common [facility] height 2022-04-09 10:20:00 65 [in_i] Commo n [facility] weight 2022-04-09 10:20:00 282.4 [lb_av] Co mmon [facility] temperature 2022-04-09 10:20:00 97.0 [degF] Com [facility] bmi 2022-04-09 10:20:00 46.99 kg/m2 Comm on [facility] oximetry 2022-04-09 10:20:00 96 % Commo n [facility] respiratory rate 2022-04-09 10:20:00 16 /min Common [facility] blood pressure systolic 2022-04-09 10:20:00 131 mm[Hg] [facility] blood pressure diastolic 2022-04-09 10:20:00 61 mm[Hg] Common [facility] height 2022-04-09 10:20:00 65 [in_i] Commo n [facility] weight 2022-04-09 10:20:00 282.4 [lb_av] Co on [facility] temperature 2022-04-09 10:20:00 97.0 [degF] Com [facility] bmi 2022-04-09 10:20:00 46.99 kg/m2 Comm on [facility] oximetry 2022-04-09 10:20:00 96 % Commo n [facility] respiratory rate 2022-04-09 10:20:00 16 /min [facility] blood pressure systolic 2022-04-09 10:20:00 131 mm[Hg] [facility] blood pressure diastolic 2022-04-09 10:20:00 61 mm[Hg] Common [facility] BP Diastolic 2021-01-07 00:00:00 82 mm[Hg] [facility] Height 2021-01-07 00:00:00 67 [in_i] [facility] BMI (Body Mass Index) 2021-01-07 00:00:00 43.9 kg/m2 [facility] BP Systolic 2021-01-07 00:00:00 138 mm[Hg] Hien membreno [facility] Body Weight 2021-01-07 00:00:00 4480 [oz_av] Aron mcdaniel [facility] Systolic blood pressure 2019-06-17 05:00:00 152 mm[Hg] [facility] Diastolic blood pressure 2019-06-17 05:00:00 90 mm[Hg] [facility] Heart rate 2019-06-17 05:00:00 72 /min [facility] Respiratory rate 2019-06-17 05:00:00 14 /min [facility] Oxygen saturation in Arterial blood by Pulse oximetry 2019-06-17 05:00:00 98 /min [facility] Body temperature 2019-06-17 03:23:00 37.44 Jenny [facility] Body height 2019-06-17 03:23:00 165.1 cm [facility] Body weight 2019-06-17 03:23:00 123.378 kg [facility] BMI 2019-06-17 03:23:00 45.26 kg/m2 [facility] Procedures Procedure Date / Time Performed Performing Clinician Source POCT GLUCOSE (AUTOMATED) 2023-04-03 17:27:00 Shagufta Rivas [facility] POCT GLUCOSE (AUTOMATED) 2023-04-03 13:16:00 Shagufta Rivas [facility] LACTIC ACID WHOLE BLOOD 2023-04-03 11:28:00 Marie Guerrero [facility] C-REACTIVE PROTEIN 2023-04-03 10:27:00 Juan R Guerrero [facility] BASIC METABOLIC PANEL (NA, K, CL, CO2, GLUCOSE, BUN, CREATININE, CA) 2023-04-03 10:27:00 Cesar Juan R [facility] CBC WITH DIFF 2023-04-03 10:27:00 Juan R Guerrero [facility] C-REACTIVE PROTEIN 2023-04-03 03:06:00 Cesar Juan R [facility] POCT GLUCOSE (AUTOMATED) 2023-04-03 01:36:00 Shagufta Rivas [facility] POCT GLUCOSE (AUTOMATED) 2023-04-02 20:45:00 Shagufta Rivas [facility] POCT GLUCOSE (AUTOMATED) 2023-04-02 20:45:00 Shagufta Rivas [facility] CT HEAD WO CONTRAST 2023-04-02 20:06:00 Ale Horn [facility] CT HEAD WO CONTRAST 2023-04-02 20:06:00 Ale Horn [facility] POCT GLUCOSE (AUTOMATED) 2023-04-02 17:31:00 Shagufta Rivas [facility] POCT GLUCOSE (AUTOMATED) 2023-04-02 17:31:00 Shagufta Rivas [facility] POCT GLUCOSE (AUTOMATED) 2023-04-02 13:10:00 Shagufta Rivas [facility] POCT GLUCOSE (AUTOMATED) 2023-04-02 13:10:00 Shagufta Rivas [facility] LACTIC ACID WHOLE BLOOD 2023-04-02 11:24:00 Marie Guerrero [facility] LACTIC ACID WHOLE BLOOD 2023-04-02 11:24:00 Marie Guerrero [facility] CBC WITH DIFF 2023-04-02 06:52:00 Cesar Juan R [facility] CBC WITH DIFF 2023-04-02 06:52:00 Cesar [facility] TROPONIN I 2023-04-02 06:49:00 Wagner Davis [facility] BASIC METABOLIC PANEL (NA, K, CL, CO2, GLUCOSE, BUN, CREATININE, CA) 2023-04-02 06:49:00 Juan R Guerrero [facility] TROPONIN I 2023-04-02 06:49:00 Wagner Davis [facility] BASIC METABOLIC PANEL (NA, K, CL, CO2, GLUCOSE, BUN, CREATININE, CA) 2023-04-02 06:49:00 Juan R Guerrero [facility] POCT GLUCOSE (AUTOMATED) 2023-04-02 02:11:00 Shagufta Rivas [facility] POCT GLUCOSE (AUTOMATED) 2023-04-02 02:11:00 [facility] 2023-04-01 23:17:[address] [facility] [address] HEAD W CONTRAST 2023-04-01 23:17:16 Cesar [facility] POCT GLUCOSE (AUTOMATED) 2023-04-01 21:48:00 [facility]ATED) 2023-04-01 21:48:00 Shagufta Rivas [facility] FACIAL ABSCESS INCISION AND DRAINAGE 2023-04-01 18:20:00 Evelyn [facility] ORAL CAVITY DEBRIDEMENT 2023-04-01 18:20:00 Evelyn [facility] FACIAL ABSCESS INCISION AND DRAINAGE 2023-04-01 18:20:00 Evelyn [facility] ORAL CAVITY DEBRIDEMENT 2023-04-01 18:20:00 Evelyn [facility] POCT GLUCOSE (AUTOMATED) 2023-04-01 17:15:00 Shagufta Rivas [facility] POCT GLUCOSE (AUTOMATED) 2023-04-01 17:15:00 Shagufta Rivas [facility] POCT GLUCOSE (AUTOMATED) 2023-04-01 13:23:00 Shagufta Rivas [facility] POCT GLUCOSE (AUTOMATED) 2023-04-01 13:23:00 Shagufta Rivas [facility] C-REACTIVE PROTEIN 2023-04-01 10:24:00 Cesar [facility] BASIC METABOLIC PANEL (NA, K, CL, CO2, GLUCOSE, BUN, CREATININE, CA) 2023-04-01 10:24:00 Cesar [facility] CBC WITH DIFF 2023-04-01 10:24:[address] 2023-04-01 10:24[facility] (NA, K, CL, CO2, GLUCOSE, BUN, CREATININE, CA) 2023-04-01 10:24:00 Cesar [facility] CBC WITH DIFF 2023-04-01 10:24:00 Juan R Guerrero [facility] POCT GLUCOSE (AUTOMATED) 2023-04-01 01:51:00 [facility]) 2023-04-01 01:51:00 Shagufta Rivas [facility] LACTIC ACID WHOLE BLOOD 2023-04-01 00:48:00 Marie Guerrero [facility] LACTIC ACID WHOLE BLOOD 2023-04-01 00:48:00 Marie Guerrero [facility] POCT GLUCOSE (AUTOMATED) 2023-03-31 20:30:00 [facility]ATED) 2023-03-31 20:30:00 Shagufta Rivas [facility] POCT GLUCOSE (AUTOMATED) 2023-03-31 16:48:00 [facility] ([facility]ATED) 2023-03-31 16:48:00 Shagufta Rivas [facility] VANCOMYCIN TROUGH 2023-03-31 16:31:00 Juan R Guerrero [facility] VANCOMYCIN TROUGH 2023-03-31 16:31:00 Juan R Guerrero [facility] POCT GLUCOSE (AUTOMATED) 2023-03-31 12:57:00 [facility] ([facility]ATED) 2023-03-31 12:57:00 Shagufta Rivas [facility] BASIC METABOLIC PANEL (NA, K, CL, CO2, GLUCOSE, BUN, CREATININE, CA) 2023-03-31 07:54:00 Wagner Davis [facility] CBC WITH DIFF 2023-03-31 07:54:00 Wagner Davis [facility] BASIC METABOLIC PANEL (NA, K, CL, CO2, GLUCOSE, BUN, CREATININE, CA) 2023-03-31 07:54:00 Wagner Davis [facility] CBC WITH DIFF 2023-03-31 07:54:00 Wagner Davis [facility] POCT GLUCOSE (AUTOMATED) 2023-03-31 01:50:00 Shagufta Rivas [facility] POCT GLUCOSE (AUTOMATED) 2023-03-31 01:50:00 Shagufta Rivas [facility] POCT GLUCOSE (AUTOMATED) 2023-03-30 19:50:00 Shagufta Rivas [facility] POCT GLUCOSE (AUTOMATED) 2023-03-30 19:50:00 Shagufta Rivas [facility] CT SOFT TISSUE NECK W CONTRAST 2023-03-30 03:53:00 Lit Radha [facility] COMP. METABOLIC PANEL (21916) 2023-03-30 02:55:00 Radha Murrieta [facility] CBC WITH DIFF 2023-03-30 02:55:00 Radha Murrieta [facility] ASSIGNMENT OF BENEFITS 2023-03-30 02:48:14 Docto r Unassigned, [place] [facility] CONSENT/REFUSAL FOR DIAGNOSIS AND TREATMENT 2023-03-30 02:15:19 Doctor Unassigned, [place] [facility] CT CERVICAL SPINE WO CONTRAST 2022-12-17 22:33:17 Melinda Flores [facility] CT MAXILLOFACIAL/MANDIBLE WO CONTRAST 2022-12-17 22:33:17 Melinda Flores F [facility] CT HEAD WO CONTRAST 2022-12-17 22:33:17 Nick Flores F [facility] XR KNEE 3 VW RIGHT 2022-12-17 22:31:12 Jose Flores F [facility] XR LUMBAR SPINE 2 VW 2022-06-14 03:30:06 Anderson Castillo [facility] URINALYSIS 2022-06-14 02:33:00 Eduarda Zambrano [facility] NOTICE OF PRIVACY PRACTICES 2022-06-14 01:26:39 Doctor Unassigned, [place] [facility] CONSENT/REFUSAL FOR DIAGNOSIS AND TREATMENT 2022-06-14 01:26:11 Doctor Unassigned, [place] [facility] MAMMO, screening, digital, bilateral 2021-01-07 00:00:00 [facility] XR, hand 2021-01-07 00:00:00 [facility] XR CHEST 1 VW 2019-06-17 03:51:19 Eduarda Zambrano [facility] LIPASE 2019-06-17 03:49:00 Eduarda Zambrano [facility] TROPONIN I 2019-06-17 03:49:00 Eduarda Zambrano [facility] COMP. METABOLIC PANEL (82659) 2019-06-17 03:49:00 Eduarda Zambrano [facility] CBC WITH DIFFERENTIAL 2019-06-17 03:49:00 Bernarda Zambrano [facility] PROTHROMBIN TIME / INR 2019-06-17 03:49:00 Sahara Zambrano [facility] ACTIVATED PARTIAL THRMPLAS LAUREN 2019-06-17 03:49:00 Eduarda Zambrano [facility] URINALYSIS 2019-06-17 03:49:00 [facility] N-TERMINAL PRO-BNP 2019-06-17 03:49:00 Jonn Carver [facility] NOTICE OF PRIVACY PRACTICES 2019-06-17 03:26:57 Doctor Unassigned, [place] [facility] EKG-12 LEAD 2019-06-17 03:26:51 Eduarda Zambrano [facility] CONSENT/REFUSAL FOR DIAGNOSIS AND TREATMENT 2019-06-17 03:08:48 Doctor Unassigned, [place] [facility] [U] XRAY KNEE 3 VWS LEFT [id number] 2017-10-01 00:00:00 [facility] [U] XRAY KNEE 3 VWS LEFT [id number] 2017-09-27 00:00:00 [facility] Total Hysterectomy [facility] Stomach Surgery Procedure [facility] Cholecystectomy [facility] Wrist Replacement [facility] Procedure on Elbow [facility] Operation on Neck [facility] Back Surgery [facility] Knee Surgery [facility] History of knee surgery [facility] History [facility] back [facility] History of hysterectomy [facility] Plan of Care Planned Activity Planned Date Details Comments Source Diagnostic Test Pending 2021-01-07 00:00:00 CMP, serum or plasma [code = CMP, serum or plasma] [facility] Diagnostic Test Pending 2021-01-07 00:00:00 TSH, serum or plasma [code = TSH, serum or plasma] [facility] Diagnostic Test Pending 2021-01-07 00:00:00 CBC w/ diff [code = CBC w/ diff] [facility] Diagnostic Test Pending 2021-01-07 00:00:00 lipid panel, serum [code = lipid panel, serum] [facility] Encounters Start Date/Time End Date/Time Encounter Type Admission Type Attending [facility] Care Department Encounter ID Source 2024-04-20 14:37:00 [facility] [id number] [facility] 2024-02-15 14:18:00 [facility] [id number] [facility] 2024-02-04 12:41:00 [facility] [id number] [facility] 2023-12-22 16:13:00 [facility] [id number] [facility] 2023-04-20 09:44:01 [facility] [id number] [facility] 2023-04-13 16:56:11 Outpatient [facility] [id number] [facility] 2023-01-06 09:52:03 [facility] [id number] [facility] 2022-10-08 11:12:02 Outpatient Blanton, [facility] [id number] [facility] 2022-04-09 10:19:03 Outpatient Darryl Blanton STLMLC STLMLC [id number] [facility] 2024-06-22 08:30:00 2024-06-22 08:50:00 ED Follow Up ([facility]) Rebecca Ferris DEV DEV [id number] [facility] 2024-06-21 20:11:00 2024-06-21 22:50:00 Emergency X SU POP RUST ERT [id number] [facility] 2024-06-21 20:11:00 2024-06-21 22:50:00 Emergency uS Pop RUST AT [facility] 1.2.840.114 350.1.13.10 4.2.7.2.686 [id number] [facility] 2024-06-15 00:00:00 2024-06-15 00:00:00 (TEL) STLMLC STLMLC [id number] [facility] 2024-05-23 00:00:00 2024-05-23 00:00:00 (TEL) STLMLC STLMLC [id number] [facility] 2024-04-24 00:00:00 2024-04-24 00:00:00 OFFICE VISIT ESTAB PT LEVEL 4 STLMLC STLMLC [id number] [facility] 2024-03-07 00:00:00 2024-03-07 00:00:00 (TEL) STLMLC STLMLC [id number] [facility] 2024-02-29 00:00:00 2024-02-29 00:00:00 (TEL) STLMLC STLMLC [id number] [facility] 2024-02-28 00:00:00 2024-02-28 00:00:00 (TEL) STLMLC STLMLC [id number] [facility] 2024-02-15 00:00:00 2024-02-15 00:00:00 (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 STLMLC STLMLC [id number] [facility] 2024-02-04 00:00:00 2024-02-04 00:00:00 (TEL) STLMLC STLMLC [id number] [facility] 2024-02-04 00:00:00 2024-02-04 00:00:00 OFFICE VISIT ESTAB PT LEVEL 4 STLMLC STLMLC [id number] [facility] 2023-12-23 00:00:00 2023-12-23 00:00:00 OFFICE VISIT ESTAB PT LEVEL 4 STLMLC STLMLC [id number] [facility] 2023-12-23 00:00:00 2023-12-23 00:00:00 SUB ANNUAL [facility] VISIT STLMLC STLMLC [id number] [facility] 2023-12-17 00:00:00 2023-12-17 00:00:00 (TEL) STLMLC STLMLC [id number] [facility] 2023-12-14 00:00:00 2023-12-14 00:00:00 (TEL) STLMLC STLMLC [id number] [facility] 2023-12-03 00:00:00 2023-12-03 00:00:00 (TEL) STLMLC STLMLC [id number] [facility] 2023-08-29 00:00:00 2023-08-29 00:00:00 Outpatient GC_GCBZW_Ka jane_Gaye [facility] [id number] [facility] 2023-08-24 00:00:00 2023-08-24 00:00:00 (TEL) STLMLC STLMLC [id number] [facility] 2023-08-18 00:00:00 2023-08-18 00:00:00 OFFICE VISIT ESTAB PT LEVEL 4 STLMLC STLMLC [id number] [facility] 2023-08-09 00:00:00 2023-08-09 00:00:00 (TEL) STLMLC STLMLC [id number] [facility] 2023-05-26 00:00:00 2023-05-26 00:00:00 (TEL) STLC STLC [id number] [facility] 2023-04-21 00:00:00 2023-04-21 00:00:00 OFFICE VISIT ESTAB PT LEVEL 4 STLMLC STLMLC [id number] [facility] 2023-04-13 13:00:00 2023-04-13 13:39:48 [id number] 2023-04-13 13:00:00 2023-04-13 13:39:48 [facility] ADELIN[address]shleigh [address] 1.2.840.114 350.1.13.10 4.2.7.2.686 [id number] [facility] 2023-04-05 00:00:00 2023-04-05 00:00:00 (TEL) [facility] ST[facility] [id number] [facility] 2023-04-05 00:00:00 2023-04-05 00:00:00 Transition of Care Keith Benites [facility] 1.2.840.114 350.1.13.10 4.2.7.2.686 [id number] [facility] 2023-03-30 02:45:00 2023-04-03 16:57:00 Inpatient X [facility] [id number] [facility] 2023-03-30 02:45:00 2023-04-03 16:57:00 Hospital Encounter [facility] 1.2.840.114 350.1.13.10 4.2.7.2.686 [id number] [facility] 2023-04-01 12:41:00 2023-04-01 14:10:00 Surgery [facility] 1.2.840.114 350.1.13.10 4.2.7.2.686 [id number] [facility] 2023-03-29 21:24:00 2023-03-30 01:59:00 Emergency X RADHA MURRIETA RUST ERT [id number] [facility] 2023-03-29 21:24:00 2023-03-30 01:59:00 Emergency Radha Murrieta [facility] 1.2.840.114 350.1.13.10 4.2.7.2.686 [id number] [facility] 2023-03-29 00:00:00 2023-03-29 00:00:00 Orders Only Doctor Unassigned, [place] [facility] 1.2.840.114 350.1.13.10 4.2.7.2.686 [id number] [facility] 2023-01-12 00:00:00 2023-01-12 00:00:00 (TEL) STLMLC STLMLC [id number] [facility] 2023-01-08 00:00:00 2023-01-08 00:00:00 OFFICE VISIT ESTAB PT LEVEL 4 STLMLC STLMLC [id number] [facility] 2023-01-08 00:00:00 2023-01-08 00:00:00 SUB ANNUAL [facility] VIS[facility] STLMLC STLMLC [id number] [facility] 2023-01-06 00:00:00 2023-01-06 00:00:00 (TEL) STLMLC STLMLC [id number] [facility] 2022-12-23 00:00:00 2022-12-23 00:00:00 OFFICE VISIT ESTAB PT LEVEL 3 STLMLC STLMLC [id number] [facility] 2022-12-18 00:00:00 2022-12-18 00:00:00 (TEL) STLMLC STLMLC [id number] [facility] 2022-12-17 15:13:00 2022-12-17 18:23:00 Emergency X MELINDA FLORES RUST ERT [id number] [facility] 2022-12-17 15:13:00 2022-12-17 18:23:00 Emergency Melinda Flores [facility] 1.2.840.114 350.1.13.10 4.2.7.2.686 [id number] [facility] 2022-10-16 19:30:00 2022-10-16 20:00:00 CAV Revisit: Gap Closure & Clinical Check-in Evelyn Hanson 2.16.840. [id number] 2.16.840.1. [id number] [facility] 2022-10-14 00:00:00 2022-10-14 00:00:00 Outpatient Ogbechie_L DM[facility] [id number] [facility] 2022-10-14 00:00:00 2022-10-14 00:00:00 Outpatient Ogbechie_L DMG DMG [id number] [facility] 2022-10-14 00:00:00 2022-10-14 00:00:00 Outpatient Ogbechie_L DMG DMG [id number] [facility] 2022-10-12 00:00:00 2022-10-12 00:00:00 OFFICE VISIT ESTAB PT LEVEL 4 STLMLC STLMLC [id number] [facility] 2022-07-13 18:00:00 2022-07-13 19:00:00 CAV Evelyn Hanson 2.16.840. [id number] 2.16.840.1. [id number] [facility] 2022-07-09 00:00:2022-07-09 00:00:00 [facility] [id number] [facility] 2022-07-09 00:00:00 2022-07-09 00:00:00 OFFICE VISIT ESTAB PT LEVEL 4 STLMLC STLMLC [id number] [facility] 2022-06-22 00:00:00 2022-06-22 00:00:00 (TEL) STLMLC STLMLC [id number] [facility] 2022-06-19 00:00:00 2022-06-19 00:00:00 OFFICE VISIT EST PT LEVEL 3 STLMLC STLMLC [id number] [facility] 2022-06-16 00:00:00 2022-06-16 00:00:00 (TEL) STLMLC STLMLC [id number] [facility] 2022-06-13 20:27:00 2022-06-13 23:26:00 Emergency X CATIA CASTILLO RUST ERT [id number] [facility] 2022-06-13 20:27:00 2022-06-13 23:26:00 Emergency Catia Castillo G [facility] 1.2.840.114 350.1.13.10 4.2.7.2.686 [id number] [facility] 2022-05-15 03:59:00 2022-05-15 03:59:00 [facility] [id number] [facility] 2022-05-15 00:00:00 2022-05-15 00:00:00 (TEL) STLMLC STLMLC [id number] [facility] 2022-04-09 00:00:00 2022-04-09 00:00:00 OFFICE VISIT ESTAB PT LEVEL 4 STLMLC STLMLC [id number] [facility] 2022-04-09 00:00:00 2022-04-09 00:00:00 SUB ANNUAL [facility] VIS[facility] STLMLC STLMLC [id number] [facility] 2022-04-09 00:00:00 2022-04-09 00:00:00 [facility] [id number] [facility] 2022-02-23 12:01:00 2022-02-23 12:01:00 Outpatient DMG DMG [id number] [facility] 2021-05-16 04:21:00 2021-05-16 04:21:00 Outpatient ERICKSON_R [facility] [id number] 2021-01-07 11:46:00 2021-01-07 11:46:00 Outpatient ERICKSON_R [facility] [id number] 2021-01-07 00:00:00 2021-01-07 00:00:00 Outpatient Jelani Juarez [facility] [id number] 2021-01-07 00:00:00 2021-01-07 00:00:00 Jelani Juarez, DO: [address], [place] [address] , Ph. [facility], DR. JUAREZ [id number] [facility] 2019-06-16 22:17:47 2019-06-17 00:15:00 Emergency Jonn Carver [facility] 1.2.840.114 350.1.13.10 4.2.7.2.686 [id number] [facility] 2017-10-18 09:30:00 2017-10-18 09:30:00 Appointmaryanne gutiérrez; CÉSAR RODRIGUEZ M.D. CÉSAR RODRIGUEZ M.D. [facility] [id number] [facility] 2017-10-04 10:00:00 2017-10-04 10:00:00 Appointmaryanne gutiérrez; CÉSAR RODRIGUEZ M.D. CÉSAR RODRIGUEZ M.D. [facility] [id number] [facility] Results Test Description Test Time Test Comments Results Result Co mments Source HEMOGLOBIN [id number] 00:00:00* Test Item Value Reference Range Interpretation Comme nts HEMOGLOBIN A1c (test code = 4548-4) 5.7 % See_Comment H [Automated messa ge] The system which generated this result transmitted reference range: 4.2-5.6 %. The reference range was not used to interpret this result as normal/abnormal. LIPID PANEL WITH REFLEX DIRECT [id number] 00:00:00* Test Item Value Reference Range Interpretation Comme nts CALC LDL CHOL (test code = 79172-1) 76 MG/DL See_Comment [Automated messa ge] The system which generated this result transmitted reference range: <100 MG/DL. The reference range was not used to interpret this result as normal/abnormal. CHOLESTEROL (test code = 2093-3) 133 MG/DL See_Comment [Automated messa ge] The system which generated this result transmitted reference range: <200 MG/DL. The reference range was not used to interpret this result as normal/abnormal. HDL CHOLESTEROL (test code = 2085-9) 37 MG/DL See_Comment L [Automated messa ge] The system which generated this result transmitted reference range: >39 MG/DL. The reference range was not used to interpret this result as normal/abnormal. RISK RATIO LDL/HDL (test code = 61869-6) 2.05 RATIO See_Comment [Automated message] The system which generated this result transmitted reference range: <3.22 RATIO. The reference range was not used to interpret this result as normal/abnormal. TRIGLYCERIDES (test code = 2571-8) 122 MG/DL See_Comment [Automated messa ge] The system which generated this result transmitted reference range: <150 MG/DL. The reference range was not used to interpret this result as normal/abnormal. ALBUMIN/CREATININE RATIO, RANDOM [id number] 00:00:00* Test Item Value Reference Range Interpretation Comme nts ALBUMIN, URINE, RANDOM (test code = 12973-7) 1.9 MG/DL NOT ESTAB MG/DL CALC ALBUMIN/CREAT, RND (test code = 41512-7) 6 MG/G See_Comment [Automated messa ge] The system which generated this result transmitted reference range: <30 MG/G. The reference range was not used to interpret this result as normal/abnormal. CREATININE, URINE, CONC. (test code = 2161-8) 315.4 MG/DL NOT ESTAB MG/DL COMPREHENSIVE METABOLIC [id number] 00:00:00* Test Item Value Reference Range Interpretation Comme nts ALBUMIN (test code = 1751-7) 3.8 G/DL See_Comment [Automated messa ge] The system which generated this result transmitted reference range: 3.5-5.2 G/DL. The reference range was not used to interpret this result as normal/abnormal. ALKALINE PHOSPHATASE (test code = 6768-6) 78 U/L See_Comment [Automated message] The system which [...] as normal/abnormal. BUN (test code = 3094-0) 21 MG/DL See_Comment [Automated messa ge] The system which generated this result transmitted reference range: 8-23 MG/DL. The reference range was not used to interpret this result as normal/abnormal. CALCIUM (test code = 46545-5) 10.1 MG/DL See_Comment [Automated messa ge] The [...] as normal/abnormal. CALC GLOBULIN (test code = 16445-5) 3.0 G/DL See_Comment [Automated messa ge] The system which generated this result transmitted reference range: 1.9-3.7 G/DL. The reference range was not used to interpret this result as normal/abnormal. CARBON DIOXIDE (test code = 1963-8) 21 MEQ/L See_Comment [Automated messa ge] The system which generated this result transmitted reference range: 19-31 MEQ/L. The reference range was not used to interpret this result as normal/abnormal. CHLORIDE (test code = 2075-0) 104 MEQ/L See_Comment [Automated messa ge] The system which generated this result transmitted reference range: 95-107 MEQ/L. The reference range was not used to interpret this result as normal/abnormal. CREATININE (test code = 2160-0) 1.21 MG/DL See_Comment [Automated messa ge] The system which generated this result transmitted reference range: 0.60-1.30 MG/DL. The reference range was not used to interpret this result as normal/abnormal. eGFR (2020 CKD-EPI) (test code = 41966-3) 47 ML/MIN/1.73 See_Comment L [Automated messa ge] The system which generated this result transmitted reference range: >60 ML/MIN/1.73. The reference range was not used to interpret this result as normal/abnormal. GLUCOSE (test code = 1558-6) 109 MG/DL See_Comment H [Automated messa ge] The system which generated this result transmitted reference range: 70-99 MG/DL. The reference range was not used to interpret this result as normal/abnormal. POTASSIUM (test code = 2823-3) 4.4 MEQ/L See_Comment [Automated messa ge] The system which generated this result transmitted reference range: 3.5-5.4 MEQ/L. The reference range was not used to interpret this result as normal/abnormal. PROTEIN, TOTAL (test code = 2885-2) 6.8 G/DL See_Comment [Automated messa ge] The system which generated this result transmitted reference range: 6.1-8.3 G/DL. The reference range was not used to interpret this result as normal/abnormal. AST (test code = 1920-8) 20 U/L See_Comment [Automated messa ge] The system which generated this result transmitted reference range: 9-40 U/L. The reference range was not used to interpret this result as normal/abnormal. ALT (test code = 1742-6) 17 U/L See_Comment [Automated messa ge] The system which generated this result transmitted reference range: 5-40 U/L. The reference range was not used to interpret this result as normal/abnormal. SODIUM (test code = 2951-2) 140 MEQ/L See_Comment [Automated messa ge] The system which generated this result transmitted reference range: 133-146 MEQ/L. The reference range was not used to interpret this result as normal/abnormal. TSH REFLEX TO FREE [id number] 00:00:00* Test Item Value Reference Range Interpretation Comme nts TSH REFLEX TO FREE T4 (test code = 99070-9) 3.260 UIU/ML See_Comment [Automated messa ge] The system which generated this result transmitted reference range: 0.400-4.100 UIU/ML. The reference range was not used to interpret this result as normal/abnormal. URINALYSIS (CULTURE IF INDICATED)2024-04-18 00:00:00* Test Item Value Reference Range Interpretation Comme nts APPEARANCE (test code = 5767-9) TURBID CLEAR A BACTERIA (test code = 15215-0) 2+ NONE SEEN A BILIRUBIN (test code = 5770-3) 1+ NEGATIVE A CASTS, HYALINE (test code = 86270-6) NONE SEEN NONE-TRACE COLOR (test code = 5778-6) YELLOW YELLOW-STRAW EPITHELIAL CELLS (test code = 84148-1) 0-5 /HPF See_Comment [Automated messa ge] The system which generated this result transmitted reference range: 0-10 /HPF. The reference range was not used to interpret this result as normal/abnormal. GLUCOSE (test code = 5792-7) NEGATIVE NEGATIVE KETONES (test code = 5797-6) NEGATIVE NEGATIVE LEUKOCYTE ESTERASE (test code = 5799-2) 2+ NEGATIVE A NITRITE (test code = 5802-4) NEGATIVE NEGATIVE OCCULT BLOOD (test code = 11674-1) TRACE NEGATIVE A OTHER (test code = 52643-2) (NOTE) pH (test code = 5803-2) 6.0 5.0-9.0 PROTEIN (test code = 33366-4) NEGATIVE NEGATIVE RED BLOOD CELLS (test code = 18429-1) 3-5 /HPF See_Comment A [Automated messa ge] The system which generated this result transmitted reference range: 0-2 /HPF. The reference range was not used to interpret this result as normal/abnormal. SPECIFIC GRAVITY (test code = 5811-5) >=1.030 1.005-1.035 UROBILINOGEN (test code = 23865-3) 0.2 MG/DL See_Comment [Automated messa ge] The system which generated this result transmitted reference range: <=2.0 MG/DL. The reference range was not used to interpret this result as normal/abnormal. WHITE BLOOD CELLS (test code = 90708-1) 6-10 /HPF See_Comment A [Automated messa ge] The system which generated this result transmitted reference range: 0-5 /HPF. The reference range was not used to interpret this result as normal/abnormal. CBC W/AUTO [id number] 00:00:00* Test Item Value Reference Range Interpretation Comme nts NUCLEATED RBCS (test code = 58864-9) 0.0 /100 WBC'S See_Comment [Automated messa ge] The system which generated this result transmitted reference range: 0.0 /100 WBC'S. The reference range was not used to interpret this result as normal/abnormal. ABSOLUTE EOSINOPHILS (test code = 27734-4) 0.21 K/UL See_Comment [Automated messa ge] The system which generated this result transmitted reference range: 0.00-0.50 K/UL. The reference range was not used to interpret this result as normal/abnormal. ABSOLUTE LYMPHOCYTES (test code = 63961-1) 1.37 K/UL See_Comment [Automated messa ge] The system which generated this result transmitted reference range: 1.00-4.00 K/UL. The reference range was not used to interpret this result as normal/abnormal. ABSOLUTE MONOCYTES (test code = 63422-3) 0.43 K/UL See_Comment [Automated messa ge] The system which generated this result transmitted reference range: 0.20-1.00 K/UL. The reference range was not used to interpret this result as normal/abnormal. ABSOLUTE NEUTROPHILS (test code = 23859-0) 3.39 K/UL See_Comment [Automated messa ge] The system which generated this result transmitted reference range: 1.50-7.50 K/UL. The reference range was not used to interpret this result as normal/abnormal. BASOPHILS (test code = 92248-5) 0.9 % EOSINOPHILS (test code = 07345-1) 3.8 % HEMATOCRIT (test code = 75854-8) 41.9 % See_Comment [Automated messa ge] The system which generated this result transmitted reference range: 34.0-45.0 %. The reference range was not used to interpret this result as normal/abnormal. HEMOGLOBIN (test code = 718-7) 13.8 G/DL See_Comment [Automated messa ge] The system which generated this result transmitted reference range: 11.5-15.5 G/DL. The reference range was not used to interpret this result as normal/abnormal. LYMPHOCYTES (test code = 18128-7) 25.0 % MCH (test code = 13397-4) 29.4 PG See_Comment [Automated messa ge] The system which generated this result transmitted reference range: 25.0-33.0 PG. The reference range was not used to interpret this result as normal/abnormal. MCHC (test code = 38187-0) 32.9 G/DL See_Comment [Automated messa ge] The system which generated this result transmitted reference range: 31.0-36.0 G/DL. The reference range was not used to interpret this result as normal/abnormal. MCV (test code = 45305-8) 89.1 fL See_Comment [Automated messa ge] The system which generated this result transmitted reference range: 80.0-99.0 fL. The reference range was not used to interpret this result as normal/abnormal. MONOCYTES (test code = 69611-5) 7.9 % NEUTROPHILS (test code = 01925-1) 62.0 % PLATELET COUNT (test code = 43658-0) 254 K/UL See_Comment [Automated messa ge] The system which generated this result transmitted reference range: 130-400 K/UL. The reference range was not used to interpret this result as normal/abnormal. RBC (test code = 77650-4) 4.70 M/UL See_Comment [Automated messa ge] The system which generated this result transmitted reference range: 3.80-5.40 M/UL. The reference range was not used to interpret this result as normal/abnormal. RDW (test code = 97456-2) 13.6 % See_Comment [Automated messa ge] The system which generated this result transmitted reference range: 11.5-15.0 %. The reference range was not used to interpret this result as normal/abnormal. WBC (test code = 07062-5) 5.5 K/UL See_Comment [Automated messa ge] The system which generated this result transmitted reference range: 3.5-11.0 K/UL. The reference range was not used to interpret this result as normal/abnormal. HEMOGLOBIN [id number] 00:00:00* Test Item Value Reference Range Interpretation Comme [facility] HEMOGLOBIN A1c (test code = 4548-4) 6.1 % See_Comment H [Automated messa ge] The system which generated this result transmitted reference range: 4.2-5.6 %. The reference range was not used to interpret this result as normal/abnormal. LIPID PANEL WITH REFLEX DIRECT [id number] 00:00:00* Test Item Value Reference Range Interpretation Comme nts CALC LDL CHOL (test code = 70141-1) 102 MG/DL See_Comment H [Automated messa ge] [...] normal/abnormal. RISK RATIO LDL/HDL (test code = 69627-9) 2.68 RATIO See_Comment [Automated message] The system [...] this result as normal/abnormal. ALBUMIN/CREATININE RATIO, RANDOM [id number] 00:00:00* Test Item Value Reference Range Interpretation Comme nts ALBUMIN, URINE, RANDOM (test code = 00011-0) 2.2 MG/DL NOT ESTAB MG/DL CALC ALBUMIN/CREAT, RND (test code = 37049-2) 7 MG/G See_Comment [Automated messa ge] The system which generated this result transmitted reference range: <30 MG/G. The reference range was not used to interpret this result as normal/abnormal. CREATININE, URINE, CONC. (test code = 2161-8) 330.3 MG/DL NOT ESTAB MG/DL COMPREHENSIVE METABOLIC [id number] 00:00:00* Test Item Value Reference Range Interpretation [...] result as normal/abnormal. CALCIUM (test code = 51535-4) 10.1 MG/DL See_Comment [Automated messa ge] The [...] as normal/abnormal. CALC GLOBULIN (test code = 67129-4) 2.7 G/DL See_Comment [Automated messa ge] The [...] normal/abnormal. eGFR (2020 CKD-EPI) (test code = 10366-7) 48 ML/MIN/1.73 See_Comment L [Automated messa ge] [...] interpret this result as normal/abnormal. CBC W/AUTO [id number] 00:00:00* Test Item Value Reference Range Interpretation Comme nts NUCLEATED RBCS (test code = 99878-9) 0.0 /100 WBC'S See_Comment [Automated messa ge] The system which generated this result transmitted reference range: 0.0 /100 WBC'S. The reference range was not used to interpret this result as normal/abnormal. ABSOLUTE EOSINOPHILS (test code = 99823-8) 0.17 K/UL See_Comment [Automated messa ge] The system which generated this result transmitted reference range: 0.00-0.50 K/UL. The reference range was not used to interpret this result as normal/abnormal. ABSOLUTE LYMPHOCYTES (test code = 01117-3) 1.43 K/UL See_Comment [Automated messa ge] The system which generated this result transmitted reference range: 1.00-4.00 K/UL. The reference range was not used to interpret this result as normal/abnormal. ABSOLUTE MONOCYTES (test code = 22919-3) 0.43 K/UL See_Comment [Automated messa ge] The system which generated this result transmitted reference range: 0.2-3.8 K/UL. The reference range was not used to interpret this result as normal/abnormal. ABSOLUTE NEUTROPHILS (test code = 87819-9) 2.96 K/UL See_Comment [Automated messa ge] The system which generated this result transmitted reference range: 1.50-7.50 K/UL. The reference range was not used to interpret this result as normal/abnormal. BASOPHILS (test code = 14005-0) 0.8 % EOSINOPHILS (test code = 93179-8) 3.4 % HEMATOCRIT (test code = 91327-2) 34.6 % See_Comment [Automated messa ge] The [...] result as normal/abnormal. LYMPHOCYTES (test code = 73325-2) 28.3 % MCH (test code = 82050-2) 29.9 PG See_Comment [Automated messa ge] The system which generated this result transmitted reference range: 25.0-33.0 PG. The reference range was not used to interpret this result as normal/abnormal. MCHC (test code = 09623-9) 33.2 G/DL See_Comment [Automated messa ge] The system which generated this result transmitted reference range: 31.0-36.0 G/DL. The reference range was not used to interpret this result as normal/abnormal. MCV (test code = 28086-1) 90.1 fL See_Comment [Automated messa ge] The system which generated this result transmitted reference range: 80.0-99.0 fL. The reference range was not used to interpret this result as normal/abnormal. MONOCYTES (test code = 43550-7) 8.5 % NEUTROPHILS (test code = 19847-9) 58.6 % PLATELET COUNT (test code = 92227-0) 224 K/UL See_Comment [Automated messa ge] The system which generated this result transmitted reference range: 130-400 K/UL. The reference range was not used to interpret this result as normal/abnormal. RBC (test code = 65527-6) 3.84 M/UL See_Comment [Automated messa ge] The system which generated this result transmitted reference range: 3.80-5.40 M/UL. The reference range was not used to interpret this result as normal/abnormal. RDW (test code = 53309-7) 13.9 % See_Comment [Automated messa ge] The system which generated this result transmitted reference range: 11.5-15.0 %. The reference range was not used to interpret this result as normal/abnormal. WBC (test code = 20311-4) 5.1 K/UL See_Comment [Automated messa ge] The system which generated this result transmitted reference range: 3.5-11.0 K/UL. The reference range was not used to interpret this result as normal/abnormal. HEMOGLOBIN [id number] 00:00:00* Test Item Value Reference Range Interpretation Comme [facility] HEMOGLOBIN A1c (test code = 4548-4) 6.2 % See_Comment H [Automated messa ge] The system which generated this result transmitted reference range: 4.2-5.6 %. The reference range was not used to interpret this result as normal/abnormal. LIPID PANEL WITH REFLEX DIRECT [id number] 00:00:00* Test Item Value Reference Range Interpretation Comme [facility] CALC LDL CHOL (test code = 85996-7) 78 MG/DL See_Comment [Automated messa ge] The [...] normal/abnormal. RISK RATIO LDL/HDL (test code = 04130-8) 2.36 RATIO See_Comment [Automated message] The system [...] this result as normal/abnormal. ALBUMIN/CREATININE RATIO, RANDOM [id number] 00:00:00* Test Item Value Reference Range Interpretation Comme nts ALBUMIN, URINE, RANDOM (test code = 71975-1) 1.2 MG/DL NOT ESTAB MG/DL CALC ALBUMIN/CREAT, RND (test code = 61010-6) 8 MG/G See_Comment [Automated messa ge] The system which generated this result transmitted reference range: <30 MG/G. The reference range was not used to interpret this result as normal/abnormal. CREATININE, URINE, CONC. (test code = 2161-8) 155.6 MG/DL NOT ESTAB MG/DL COMPREHENSIVE METABOLIC [id number] 00:00:00* Test Item Value Reference Range Interpretation [...] result as normal/abnormal. CALCIUM (test code = 26389-0) 9.6 MG/DL See_Comment [Automated messa ge] The [...] as normal/abnormal. CALC GLOBULIN (test code = 67847-2) 2.9 G/DL See_Comment [Automated messa ge] The [...] normal/abnormal. eGFR (2020 CKD-EPI) (test code = 96330-5) 57 ML/MIN/1.73 See_Comment L [Automated messa ge] [...] Test Item Value Reference Range Interpretation Comme [facility] POCT GLU (test code = 9244317521) 148 mg/dL 70-110 H Lab Interpretation (test cod e = 66324-3) [facility] [id number] 13:53:51* Test Item Value Reference Range Interpretation Comme nts CRP (test code = 2453713958) 6.2 mg/dL <=0.8 H Lab Interpretation (test cod e = 68969-5) [facility] 13:17:33* Test Item Value Reference Range Interpretation Comme [facility] POCT GLU (test code = 9323199537) 167 mg/dL 70-110 H Notified Provide r Lab Interpretation (test code = 01232-7) [facility] [id number] 11:39:45* Test Item Value Reference Range Interpretation Comme nts LACTIC ACID (test code = 2000127058) 1.11 mmol/L 0.50-2.20 QUES Lab Interpretation (test cod e = 92745-1) Normal [facility] GLUCOSE (AUTOMATED)2023-04-03 01:39:07* Test Item Value Reference Range Interpretation Comme nts POCT GLU (test code = 4803810107) 107 mg/dL 70-110 Lab Interpretation (test cod e = 69267-0) Normal [facility] GLUCOSE (AUTOMATED)2023-04-02 20:46:40* Test Item Value Reference Range Interpretation Comme nts POCT GLU (test code = 3419264920) 124 mg/dL 70-110 H Notified Provide r Lab Interpretation (test code = 87971-2) Abnormal [facility] GLUCOSE (AUTOMATED)2023-04-02 20:46:40* Test Item Value Reference Range Interpretation Comme nts POCT GLU (test code = 2226686935) 124 mg/dL 70-110 H Notified Provide r Lab Interpretation (test code = 15489-4) Abnormal [facility] GLUCOSE (AUTOMATED)2023-04-02 17:33:22* Test Item Value Reference Range Interpretation Comme nts POCT GLU (test code = 2654232251) 122 mg/dL 70-110 H Notified Provide r Lab Interpretation (test code = 46864-6) Abnormal [facility] GLUCOSE (AUTOMATED)2023-04-02 17:33:22* Test Item Value Reference Range Interpretation Comme nts POCT GLU (test code = 3637107405) 122 mg/dL 70-110 H Notified Provide r Lab Interpretation (test code = 44654-5) [facility] [id number] 15:40:21* Test Item Value Reference Range Interpretation Comme nts TROPONIN I (test code = 7681730755) 0.021 ng/mL <=0.034 MIKEL (test code = [...] of biotin. Lab Interpretation (test code = 17374-6) [id number]:40:21* Test Item Value Reference Range Interpretation Comme nts TROPONIN I (test code = 6159075189) 0.021 ng/mL <=0.034 MIKEL (test code = [...] of biotin. Lab Interpretation (test code = 76124-1) Normal [facility] GLUCOSE (AUTOMATED)2023-04-02 13:11:53* Test Item Value Reference Range Interpretation Comme nts POCT GLU (test code = 7349114079) 103 mg/dL 70-110 Lab Interpretation (test cod e = 27575-8) Normal [facility] GLUCOSE (AUTOMATED)2023-04-02 13:11:53* Test Item Value Reference Range Interpretation Comme nts POCT GLU (test code = 8832979762) 103 mg/dL 70-110 Lab Interpretation (test cod e = 43876-9) [facility] [id number] 11:30:52* Test Item Value Reference Range Interpretation Comme nts LACTIC ACID (test code = 2508968196) 1.11 mmol/L 0.50-2.20 QUES Lab Interpretation (test cod e = 70673-4) Normal [facility] Acid Whole [id number] 11:30:52* Test Item Value Reference Range Interpretation Comme nts LACTIC ACID (test code = 7268162600) 1.11 mmol/L 0.50-2.20 QUES Lab Interpretation (test cod e = 77136-3) Normal [facility] METABOLIC PANEL (NA, K, CL, CO2, GLUCOSE, BUN, CREATININE, CA)2023-04-02 10:14:58* Test Item Value Reference Range Interpretation Comme nts NA (test code = 2790240431) 135 mmol/L 135-145 K (test code = 1730249574) 3.5 mmol/L 3.5-5.0 CL (test code = 7110628198) 102 mmol/L 98-108 CO2 TOTAL (test code = 0747536237) 23 mmol/L 23-31 AGAP (test code = 2317991880) 10 2-16 BUN (test code = 7432405613) 12 mg/dL 7-23 GLUCOSE (test code = 6132131863) 103 mg/dL 70-110 CREATININE (test code = 9342954422) 0.72 mg/dL 0.50-1.04 CALCIUM (test code = 0499413755) 8.4 mg/dL 8.6-10.6 L eGFR (test code = 6760432049) 79.6 mL/min/1.73m2 MIKEL (test code = MIKEL) [...] imaging tests). Lab Interpretation (test code = 73795-9) Abnormal [facility] METABOLIC PANEL (NA, K, CL, CO2, GLUCOSE, BUN, CREATININE, CA)2023-04-02 10:14:58* Test Item Value Reference Range Interpretation Comme nts NA (test code = 8826873940) 135 mmol/L 135-145 K (test code = 0857952828) 3.5 mmol/L 3.5-5.0 CL (test code = 1686117372) 102 mmol/L 98-108 CO2 TOTAL (test code = 9975895119) 23 mmol/L 23-31 AGAP (test code = 5097397171) 10 2-16 BUN (test code = 4933950301) 12 mg/dL 7-23 GLUCOSE (test code = 1825881261) 103 mg/dL 70-110 CREATININE (test code = 1670516645) 0.72 mg/dL 0.50-1.04 CALCIUM (test code = 9278599401) 8.4 mg/dL 8.6-10.6 L eGFR (test code = 4024559977) 79.6 mL/min/1.73m2 MIKEL (test code = MIKEL) [...] imaging tests). Lab Interpretation (test code = 62909-1) Abnormal [facility] WITH [id number] 08:24:44* Test Item Value Reference Range Interpretation Comme nts WBC (test code = 6690-2) 8.20 See_Comment [Automated [employer]] The system which generated this result transmitted reference range: 4.30 - 11.10 10*3/?L. The reference range was not used to interpret this result as normal/abnormal. RBC (test code = 789-8) 3.55 See_Comment L [Automated [employer]] The system which generated this result transmitted [...] 32.2 g/dL 31.6-35.1 RDW-SD (test code = 39194-0) 43.0 fL 39.0-49.9 RDW-CV (test code = 788-0) 12.9 % 12.0-15.5 PLT (test code = 777-3) 232 See_Comment [Automated messa ge] The system which generated this result transmitted reference range: 166 - 358 10*3/?L. The reference range was not used to interpret this result as normal/abnormal. MPV (test code = 83240-6) 11.2 fL 9.5-12.9 NRBC/100 WBC (test code = 5993825381) 0.0 See_Comment [Automated me ssage] The system which generated this result transmitted reference range: 0.0 - 10.0 /100 WBCs. The reference range was not used to interpret this result as normal/abnormal. NRBC x10^3 (test code = 7959239462) See_Comment [Automated messa ge] The system which generated this result transmitted reference range: 10*3/?L. The reference range was not used to interpret this result as normal/abnormal. GRAN MAT (NEUT) % (test code = 770-8) 67.6 % IMM GRAN % (test code = 4639291671) 0.50 % LYMPH % (test code = 736-9) 18.8 % MONO % (test code = 5905-5) 10.6 % EOS % (test code = 713-8) 2.0 % BASO % (test code = 706-2) 0.5 % GRAN MAT x10^3(ANC) (test code = 9754367496) 5.55 10*3/uL 1.88-7.09 IMM GRAN x10^3 (test code = 6271646964) 0.04 10*3/uL 0.00-0.06 LYMPH x10^3 (test code = 731-0) 1.54 10*3/uL 1.32-3.29 MONO x10^3 (test code = 742-7) 0.87 10*3/uL 0.33-0.92 EOS x10^3 (test code = 711-2) 0.16 10*3/uL 0.03-0.39 BASO x10^3 (test code = 704-7) 0.04 10*3/uL 0.01-0.07 Lab Interpretation (test code = 31434-2) Abnormal [facility] WITH [id number] 08:24:44* Test Item Value Reference Range Interpretation [...] 32.2 g/dL 31.6-35.1 RDW-SD (test code = 52510-5) 43.0 fL 39.0-49.9 RDW-CV (test code = 788-0) 12.9 % 12.0-15.5 PLT (test code = 777-3) 232 See_Comment [Automated messa ge] The system which generated this result transmitted reference range: 166 - 358 10*3/?L. The reference range was not used to interpret this result as normal/abnormal. MPV (test code = 50274-3) 11.2 fL 9.5-12.9 NRBC/100 WBC (test code = 3672837729) 0.0 See_Comment [Automated [email or web address] ssage] The system which generated this result transmitted reference range: 0.0 - 10.0 /100 WBCs. The reference range was not used to interpret this result as normal/abnormal. NRBC x10^3 (test code = 6166083598) See_Comment [Automated messa ge] The system which generated this result transmitted reference range: 10*3/?L. The reference range was not used to interpret this result as normal/abnormal. GRAN MAT (NEUT) % (test code = 770-8) 67.6 % IMM GRAN % (test code = 3456362220) 0.50 % LYMPH % (test code = 736-9) 18.8 % MONO % (test code = 5905-5) 10.6 % EOS % (test code = 713-8) 2.0 % BASO % (test code = 706-2) 0.5 % GRAN MAT x10^3(ANC) (test code = 1716796839) 5.55 10*3/uL 1.88-7.09 IMM GRAN x10^3 (test code = 5651075788) 0.04 10*3/uL 0.00-0.06 LYMPH x10^3 (test code = 731-0) 1.54 10*3/uL 1.32-3.29 MONO x10^3 (test code = 742-7) 0.87 10*3/uL 0.33-0.92 EOS x10^3 (test code = 711-2) 0.16 10*3/uL 0.03-0.39 BASO x10^3 (test code = 704-7) 0.04 10*3/uL 0.01-0.07 Lab Interpretation (test code = 59945-0) Abnormal [facility] GLUCOSE (AUTOMATED)2023-04-02 02:12:27* Test Item Value Reference Range Interpretation Comme nts POCT GLU (test code = 3791220185) 94 mg/dL 70-110 Lab Interpretation (test cod e = 46727-2) Normal [facility] GLUCOSE (AUTOMATED)2023-04-02 02:12:27* Test Item Value Reference Range Interpretation Comme nts POCT GLU (test code = 2870528329) 94 mg/dL 70-110 Lab Interpretation (test cod e = 33690-4) Normal [facility] GLUCOSE (AUTOMATED)2023-04-01 21:50:48* Test Item Value Reference Range Interpretation Comme nts POCT GLU (test code = 5126965122) 130 mg/dL 70-110 H Notified Provide r Lab Interpretation (test code = 12312-2) Abnormal [facility] GLUCOSE (AUTOMATED)2023-04-01 21:50:48* Test Item Value Reference Range Interpretation Comme nts POCT GLU (test code = 6386222379) 130 mg/dL 70-110 H Notified Provide r Lab Interpretation (test code = 30816-3) Abnormal [facility] GLUCOSE (AUTOMATED)2023-04-01 17:16:42* Test Item Value Reference Range Interpretation Comme nts POCT GLU (test code = 4545266237) 94 mg/dL 70-110 Notified Provide r Lab Interpretation (test code = 85899-8) Normal [facility] GLUCOSE (AUTOMATED)2023-04-01 17:16:42* Test Item Value Reference Range Interpretation Comme nts POCT GLU (test code = 0496526283) 94 mg/dL 70-110 Notified Provide r Lab Interpretation (test code = 37994-7) Normal [facility]-REACTIVE [id number] 15:38:56* Test Item Value Reference Range Interpretation Comme nts CRP (test code = 2506102843) 9.1 mg/dL <=0.8 H Lab Interpretation (test cod e = 41236-5) Abnormal [facility]-REACTIVE [id number] 15:38:56* Test Item Value Reference Range Interpretation Comme nts CRP (test code = 3085655235) 9.1 mg/dL <=0.8 H Lab Interpretation (test cod e = 50817-5) Abnormal [facility] GLUCOSE (AUTOMATED)2023-04-01 13:31:41* Test Item Value Reference Range Interpretation Comme nts POCT GLU (test code = 1956971391) 109 mg/dL 70-110 Notified Provide r Lab Interpretation (test code = 07843-6) Normal [facility] GLUCOSE (AUTOMATED)2023-04-01 13:31:41* Test Item Value Reference Range Interpretation Comme nts POCT GLU (test code = 7277541868) 109 mg/dL 70-110 Notified Provide r Lab Interpretation (test code = 53781-5) Normal [facility] METABOLIC PANEL (NA, K, CL, CO2, GLUCOSE, BUN, CREATININE, CA)2023-04-01 11:33:36* Test Item Value Reference Range Interpretation Comme nts NA (test code = 2148858131) 137 mmol/L 135-145 K (test code = 1784089154) 3.6 mmol/L 3.5-5.0 CL (test code = 7066707352) 104 mmol/L 98-108 CO2 TOTAL (test code = 0154564694) 22 mmol/L 23-31 L AGAP (test code = 6712257969) 11 2-16 BUN (test code = 9471317910) 12 mg/dL 7-23 GLUCOSE (test code = 9380016425) 101 mg/dL 70-110 CREATININE (test code = 0174449898) 0.78 mg/dL 0.50-1.04 CALCIUM (test code = 3513973925) 8.3 mg/dL 8.6-10.6 L eGFR (test code = 4530563454) 72.6 mL/min/1.73m2 MIKEL (test code = MIKEL) [...] imaging tests). Lab Interpretation (test code = 29544-0) Abnormal [facility] METABOLIC PANEL (NA, K, CL, CO2, GLUCOSE, BUN, CREATININE, CA)2023-04-01 11:33:36* Test Item Value Reference Range Interpretation Comme nts NA (test code = 4182508472) 137 mmol/L 135-145 K (test code = 4259971631) 3.6 mmol/L 3.5-5.0 CL (test code = 9057195618) 104 mmol/L 98-108 CO2 TOTAL (test code = 1632296390) 22 mmol/L 23-31 L AGAP (test code = 8033407852) 11 2-16 BUN (test code = 8420092803) 12 mg/dL 7-23 GLUCOSE (test code = 2572254883) 101 mg/dL 70-110 CREATININE (test code = 0548136863) 0.78 mg/dL 0.50-1.04 CALCIUM (test code = 8061021834) 8.3 mg/dL 8.6-10.6 L eGFR (test code = 1126703519) 72.6 mL/min/1.73m2 MIKEL (test code = MIKLE) Association of Glomerular Filtration Rate (GFR) and [...] imaging tests). Lab Interpretation (test code = 61642-3) Abnormal [facility] WITH [id number] 10:49:29* Test Item Value Reference Range Interpretation Comme nts WBC (test code = 6690-2) 6.05 See_Comment [Automated [employer]] The system which generated this result transmitted reference range: 4.30 - 11.10 10*3/?L. The reference range was not used to interpret this result as normal/abnormal. RBC (test code = 789-8) 3.33 See_Comment L [Automated [employer]] The system which generated this result [...] 32.5 g/dL 31.6-35.1 RDW-SD (test code = 74051-8) 43.1 fL 39.0-49.9 RDW-CV (test code = 788-0) 13.1 % 12.0-15.5 PLT (test code = 777-3) 197 See_Comment [Automated [employer]] The system which generated this result transmitted reference range: 166 - 358 10*3/?L. The reference range was not used to interpret this result as normal/abnormal. MPV (test code = 93382-2) 10.5 fL 9.5-12.9 NRBC/100 WBC (test code = 8946715548) 0.0 See_Comment [Automated [email or web address]] The system which generated this result transmitted reference range: 0.0 - 10.0 /100 WBCs. The reference range was not used to interpret this result as normal/abnormal. NRBC x10^3 (test code = 8644993467) See_Comment [Automated messa ge] The system which generated this result transmitted reference range: 10*3/?L. The reference range was not used to interpret this result as normal/abnormal. GRAN MAT (NEUT) % (test code = 770-8) 62.0 % IMM GRAN % (test code = 3968966762) 0.50 % LYMPH % (test code = 736-9) 23.1 % MONO % (test code = 5905-5) 11.6 % EOS % (test code = 713-8) 2.0 % BASO % (test code = 706-2) 0.8 % GRAN MAT x10^3(ANC) (test code = 0093623070) 3.75 10*3/uL 1.88-7.09 IMM GRAN x10^3 (test code = 4146332807) 0.03 10*3/uL 0.00-0.06 LYMPH x10^3 (test code = 731-0) 1.40 10*3/uL 1.32-3.29 MONO x10^3 (test code = 742-7) 0.70 10*3/uL 0.33-0.92 EOS x10^3 (test code = 711-2) 0.12 10*3/uL 0.03-0.39 BASO x10^3 (test code = 704-7) 0.05 10*3/uL 0.01-0.07 Lab Interpretation (test code = 30371-7) Abnormal [facility] WITH [id number] 10:49:29* Test Item Value Reference Range Interpretation [...] 32.5 g/dL 31.6-35.1 RDW-SD (test code = 96464-3) 43.1 fL 39.0-49.9 RDW-CV (test code = 788-0) 13.1 % 12.0-15.5 PLT (test code = 777-3) 197 See_Comment [Automated messa ge] The system which generated this result transmitted reference range: 166 - 358 10*3/?L. The reference range was not used to interpret this result as normal/abnormal. MPV (test code = 18872-9) 10.5 fL 9.5-12.9 NRBC/100 WBC (test code = 4804272826) 0.0 See_Comment [Automated [email or web address]] The system which generated this result transmitted reference range: 0.0 - 10.0 /100 WBCs. The reference range was not used to interpret this result as normal/abnormal. NRBC x10^3 (test code = 2270025991) See_Comment [Automated messa ge] The system which generated this result transmitted reference range: 10*3/?L. The reference range was not used to interpret this result as normal/abnormal. GRAN MAT (NEUT) % (test code = 770-8) 62.0 % IMM GRAN % (test code = 8315110688) 0.50 % LYMPH % (test code = 736-9) 23.1 % MONO % (test code = 5905-5) 11.6 % EOS % (test code = 713-8) 2.0 % BASO % (test code = 706-2) 0.8 % GRAN MAT x10^3(ANC) (test code = 1944692150) 3.75 10*3/uL 1.88-7.09 IMM GRAN x10^3 (test code = 4829989301) 0.03 10*3/uL 0.00-0.06 LYMPH x10^3 (test code = 731-0) 1.40 10*3/uL 1.32-3.29 MONO x10^3 (test code = 742-7) 0.70 10*3/uL 0.33-0.92 EOS x10^3 (test code = 711-2) 0.12 10*3/uL 0.03-0.39 BASO x10^3 (test code = 704-7) 0.05 10*3/uL 0.01-0.07 Lab Interpretation (test code = 44848-7) Abnormal [facility] GLUCOSE (AUTOMATED)2023-04-01 01:52:42* Test Item Value Reference Range Interpretation Comme nts POCT GLU (test code = 4792272696) 86 mg/dL 70-110 Lab Interpretation (test cod e = 30021-4) Normal [facility] GLUCOSE (AUTOMATED)2023-04-01 01:52:42* Test Item Value Reference Range Interpretation Comme nts POCT GLU (test code = 4961465457) 86 mg/dL 70-110 Lab Interpretation (test cod e = 03045-2) Normal [facility] Acid Whole [id number] 00:55:12* Test Item Value Reference Range Interpretation Comme nts LACTIC ACID (test code = 4802314280) 0.95 mmol/L 0.50-2.20 Lab Interpretation (test cod e = 63403-8) Normal [facility] Acid Whole [id number] 00:55:12* Test Item Value Reference Range Interpretation Comme nts LACTIC ACID (test code = 4523168493) 0.95 mmol/L 0.50-2.20 Lab Interpretation (test cod e = 36050-4) Normal [facility] GLUCOSE (AUTOMATED)2023-03-31 20:31:29* Test Item Value Reference Range Interpretation Comme nts POCT GLU (test code = 7952454887) 118 mg/dL 70-110 H Lab Interpretation (test cod e = 03874-7) Abnormal [facility] GLUCOSE (AUTOMATED)2023-03-31 20:31:29* Test Item Value Reference Range Interpretation Comme nts POCT GLU (test code = 5253438553) 118 mg/dL 70-110 H Lab Interpretation (test cod e = 41120-8) Abnormal [facility] GLUCOSE (AUTOMATED)2023-03-31 16:49:43* Test Item Value Reference Range Interpretation Comme nts POCT GLU (test code = 0421570059) 126 mg/dL 70-110 H Lab Interpretation (test cod e = 61577-7) Abnormal [facility] GLUCOSE (AUTOMATED)2023-03-31 16:49:43* Test Item Value Reference Range Interpretation Comme nts POCT GLU (test code = 8034584745) 126 mg/dL 70-110 H Lab Interpretation (test cod e = 02174-1) Abnormal [facility] GLUCOSE (AUTOMATED)2023-03-31 12:58:26* Test Item Value Reference Range Interpretation Comme nts POCT GLU (test code = 0256149934) 136 mg/dL 70-110 H Lab Interpretation (test cod e = 92354-8) Abnormal [facility] GLUCOSE (AUTOMATED)2023-03-31 12:58:26* Test Item Value Reference Range Interpretation Comme nts POCT GLU (test code = 4361181717) 136 mg/dL 70-110 H Lab Interpretation (test cod e = 60078-1) Abnormal [facility] Metabolic Panel (NA, K, CL, CO2, Glucose, BUN, Creatinine, CA)2023-03-31 08:34:27* Test Item Value Reference Range Interpretation Comme nts NA (test code = 7363388943) 136 mmol/L 135-145 K (test code = 3284139266) 4.8 mmol/L 3.5-5.0 Slight hemolysis CL (test code = 7337147366) 99 mmol/L 98-108 CO2 TOTAL (test code = 2516747066) 25 mmol/L 23-31 AGAP (test code = 9088466704) 12 2-16 BUN (test code = 2317502588) 16 mg/dL 7-23 Slight hemolysis GLUCOSE (test code = 8342056989) 121 mg/dL 70-110 H CREATININE (test code = 8492026516) 0.91 mg/dL 0.50-1.04 CALCIUM (test code = 4492953056) 8.7 mg/dL 8.6-10.6 eGFR (test code = 5817831743) 60.8 mL/min/1.73m2 MIKEL (test code = MIKEL) [...] imaging tests). Lab Interpretation (test code = 35941-8) Abnormal [facility] Metabolic Panel (NA, K, CL, CO2, Glucose, BUN, Creatinine, CA)2023-03-31 08:34:27* Test Item Value Reference Range Interpretation Comme nts NA (test code = 5538838373) 136 mmol/L 135-145 K (test code = 5609694563) 4.8 mmol/L 3.5-5.0 Slight hemolysis CL (test code = 4699644494) 99 mmol/L 98-108 CO2 TOTAL (test code = 6775520563) 25 mmol/L 23-31 AGAP (test code = 5240136490) 12 2-16 BUN (test code = 2597911753) 16 mg/dL 7-23 Slight hemolysis GLUCOSE (test code = 1900120284) 121 mg/dL 70-110 H CREATININE (test code = 7565072884) 0.91 mg/dL 0.50-1.04 CALCIUM (test code = 8461668700) 8.7 mg/dL 8.6-10.6 eGFR (test code = 6952865621) 60.8 mL/min/1.73m2 MIKEL (test code = MIKEL) [...] imaging tests). Lab Interpretation (test code = 22709-3) Abnormal [facility] with Qlqncxrynprg2963-45-76 08:15:44* Test Item Value Reference Range Interpretation Comme nts WBC (test code = 6690-2) 7.81 See_Comment [Automated [employer]] The system which generated this result transmitted reference range: 4.30 - 11.10 10*3/?L. The reference range was not used to interpret this result as normal/abnormal. RBC (test code = 789-8) 4.01 See_Comment [Automated [employer]] The system which generated this result [...] 32.6 g/dL 31.6-35.1 RDW-SD (test code = 46079-6) 42.8 fL 39.0-49.9 RDW-CV (test code = 788-0) 13.1 % 12.0-15.5 PLT (test code = 777-3) 211 See_Comment [Automated [employer]] The system which generated this result transmitted reference range: 166 - 358 10*3/?L. The reference range was not used to interpret this result as normal/abnormal. MPV (test code = 45217-7) 10.6 fL 9.5-12.9 NRBC/100 WBC (test code = 0296677116) 0.0 See_Comment [Automated [employer] ssage] The system which generated this result transmitted reference range: 0.0 - 10.0 /100 WBCs. The reference range was not used to interpret this result as normal/abnormal. NRBC x10^3 (test code = 3235086245) See_Comment [Automated [employer] ge] The system which generated this result transmitted reference range: 10*3/?L. The reference range was not used to interpret this result as normal/abnormal. GRAN MAT (NEUT) % (test code = 770-8) 74.3 % IMM GRAN % (test code = 5522951034) 0.50 % LYMPH % (test code = 736-9) 14.1 % MONO % (test code = 5905-5) 9.3 % EOS % (test code = 713-8) 1.4 % BASO % (test code = 706-2) 0.4 % GRAN MAT x10^3(ANC) (test code = 2497255237) 5.80 10*3/uL 1.88-7.09 IMM GRAN x10^3 (test code = 2552887082) 0.04 10*3/uL 0.00-0.06 LYMPH x10^3 (test code = 731-0) 1.10 10*3/uL 1.32-3.29 L MONO x10^3 (test code = 742-7) 0.73 10*3/uL 0.33-0.92 EOS x10^3 (test code = 711-2) 0.11 10*3/uL 0.03-0.39 BASO x10^3 (test code = 704-7) 0.03 10*3/uL 0.01-0.07 Lab Interpretation (test code = 32188-5) Abnormal [facility] with Xyjsaedyzbtd1767-11-97 08:15:44* Test Item Value Reference Range Interpretation [...] 32.6 g/dL 31.6-35.1 RDW-SD (test code = 81858-2) 42.8 fL 39.0-49.9 RDW-CV (test code = 788-0) 13.1 % 12.0-15.5 PLT (test code = 777-3) 211 See_Comment [Automated messa ge] The system which generated this result transmitted reference range: 166 - 358 10*3/?L. The reference range was not used to interpret this result as normal/abnormal. MPV (test code = 52254-6) 10.6 fL 9.5-12.9 NRBC/100 WBC (test code = 4168134783) 0.0 See_Comment [Automated [email or web address]] The system which generated this result transmitted reference range: 0.0 - 10.0 /100 WBCs. The reference range was not used to interpret this result as normal/abnormal. NRBC x10^3 (test code = 5630032402) See_Comment [Automated messa ge] The system which generated this result transmitted reference range: 10*3/?L. The reference range was not used to interpret this result as normal/abnormal. GRAN MAT (NEUT) % (test code = 770-8) 74.3 % IMM GRAN % (test code = 2513098202) 0.50 % LYMPH % (test code = 736-9) 14.1 % MONO % (test code = 5905-5) 9.3 % EOS % (test code = 713-8) 1.4 % BASO % (test code = 706-2) 0.4 % GRAN MAT x10^3(ANC) (test code = 2463334877) 5.80 10*3/uL 1.88-7.09 IMM GRAN x10^3 (test code = 5337315506) 0.04 10*3/uL 0.00-0.06 LYMPH x10^3 (test code = 731-0) 1.10 10*3/uL 1.32-3.29 L MONO x10^3 (test code = 742-7) 0.73 10*3/uL 0.33-0.92 EOS x10^3 (test code = 711-2) 0.11 10*3/uL 0.03-0.39 BASO x10^3 (test code = 704-7) 0.03 10*3/uL 0.01-0.07 Lab Interpretation (test code = 31180-4) Abnormal [facility] GLUCOSE (AUTOMATED)2023-03-31 01:57:27* Test Item Value Reference Range Interpretation Comme nts POCT GLU (test code = 7545292972) 94 mg/dL 70-110 Lab Interpretation (test cod e = 27814-9) Normal [facility] GLUCOSE (AUTOMATED)2023-03-31 01:57:27* Test Item Value Reference Range Interpretation Comme nts POCT GLU (test code = 1121213128) 94 mg/dL 70-110 Lab Interpretation (test cod e = 37365-1) Normal [facility] GLUCOSE (AUTOMATED)2023-03-30 20:10:03* Test Item Value Reference Range Interpretation Comme nts POCT GLU (test code = 8921926246) 118 mg/dL 70-110 H Lab Interpretation (test cod e = 19912-2) Abnormal [facility] GLUCOSE (AUTOMATED)2023-03-30 20:10:03* Test Item Value Reference Range Interpretation Comme nts POCT GLU (test code = 2057145820) 118 mg/dL 70-110 H Lab Interpretation (test cod e = 21965-3) Abnormal [facility]. METABOLIC PANEL (40199)2023-03-30 03:28:03* Test Item Value Reference Range Interpretation Comme nts NA (test code = 2676405255) 140 mmol/L 135-145 K (test code = 1797859131) 4.1 mmol/L 3.5-5.0 CL (test code = 9489945079) 101 mmol/L 98-108 CO2 TOTAL (test code = 3672304450) 27 mmol/L 23-31 AGAP (test code = 3769851915) 12 2-16 BUN (test code = 5491308204) 28 mg/dL 7-23 H GLUCOSE (test code = 9600675724) 121 mg/dL 70-110 H CREATININE (test code = 2686750464) 1.16 mg/dL 0.50-1.04 H TOTAL BILI (test code = 5635469469) 0.6 mg/dL 0.1-1.1 CALCIUM (test code = 8003898502) 8.9 mg/dL 8.6-10.6 T PROTEIN (test code = 3069831566) 6.9 g/dL 6.3-8.2 ALBUMIN (test code = 3997084143) 3.8 g/dL 3.5-5.0 ALK PHOS (test code = 0443363041) 88 U/L 34-122 ALTv (test code = 1742-6) 31 U/L 5-35 AST(SGOT) (test code = 7064550408) 31 U/L 13-40 eGFR (test code = 6697274590) 45.9 mL/min/1.73m2 MIKEL (test code = MIKEL) [...] imaging tests). Lab Interpretation (test code = 66617-0) Abnormal [facility] WITH [id number] 03:19:42* Test Item Value Reference Range Interpretation Comme nts WBC (test code = 6690-2) 9.94 See_Comment [Automated [employer]] The system which generated this result transmitted reference range: 4.30 - 11.10 10*3/?L. The reference range was not used to interpret this result as normal/abnormal. RBC (test code = 789-8) 4.10 See_Comment [Automated messa ge] The system which [...] 32.9 g/dL 31.6-35.1 RDW-SD (test code = 71875-7) 42.8 fL 39.0-49.9 RDW-CV (test code = 788-0) 13.0 % 12.0-15.5 PLT (test code = 777-3) 249 See_Comment [Automated messa ge] The system which generated this result transmitted reference range: 166 - 358 10*3/?L. The reference range was not used to interpret this result as normal/abnormal. MPV (test code = 67384-7) 11.1 fL 9.5-12.9 NRBC/100 WBC (test code = 7035948026) 0.0 See_Comment [Automated [email or web address] ssage] The system which generated this result transmitted reference range: 0.0 - 10.0 /100 WBCs. The reference range was not used to interpret this result as normal/abnormal. NRBC x10^3 (test code = 7346856396) See_Comment [Automated messa ge] The system which generated this result transmitted reference range: 10*3/?L. The reference range was not used to interpret this result as normal/abnormal. GRAN MAT (NEUT) % (test code = 770-8) 70.3 % IMM GRAN % (test code = 2830625174) 0.70 % LYMPH % (test code = 736-9) 18.2 % MONO % (test code = 5905-5) 7.9 % EOS % (test code = 713-8) 2.3 % BASO % (test code = 706-2) 0.6 % GRAN MAT x10^3(ANC) (test code = 2669222759) 6.98 10*3/uL 1.88-7.09 IMM GRAN x10^3 (test code = 5903522077) 0.07 10*3/uL 0.00-0.06 H LYMPH x10^3 (test code = 731-0) 1.81 10*3/uL 1.32-3.29 MONO x10^3 (test code = 742-7) 0.79 10*3/uL 0.33-0.92 EOS x10^3 (test code = 711-2) 0.23 10*3/uL 0.03-0.39 BASO x10^3 (test code = 704-7) 0.06 10*3/uL 0.01-0.07 Lab Interpretation (test code = 78273-4) [facility] [id number] 04:58:35No acute cardiopulmonary abnormality. Baldomero Parra MD., have reviewed this study and agree [...] abnormality is identified. ACDF changes are noted. [facility], Radiant Results Inft User - 06/17/2019 12:00 [...] abnormality is identified.ACDF changesare noted.IMPRESSIONNo acute cardiopulmonary abnormality.Otto Parra MD., have reviewed this study and agree with the abovereport.[facility] 2019-[facility] 04:36:00* Test Item Value Reference Range Interpretation Comme nts TROPONIN I (test code = 5707414263) <0.012 See_Comment [Automated message] The system which [...] biotin.? ? Lab Interpretation (test code = 45029-8) [facility]OL[facility] (37644)2019-06-17 04:33:00* Test Item Value Reference Range Interpretation Comme nts NA (test code = 8313132415) 139 mmol/L 135-145 K (test code = 7612137392) 4.4 mmol/L 3.5-5 CL (test code = 7767670422) 103 mmol/L 98-108 CO2 TOTAL (test code = 2999585490) 24 mmol/L 23-31 AGAP (test code = 8633547393) 2-16 BUN (test code = 4854098763) 32 mg/dL 7-23 H GLUCOSE (test code = 2019209516) 140 mg/dL 70-110 H CREATININE (test code = 9974534309) 1.34 mg/dL 0.5-1.04 H TOTAL BILI (test code = 9416647024) 0.8 mg/dL 0.1-1.1 CALCIUM (test code = 1378854693) 10.2 mg/dL 8.6-10.6 T PROTEIN (test code = 0030426766) 8.8 g/dL 6.3-8.2 H ALBUMIN (test code = 0206717006) 4.9 g/dL 3.5-5 ALK PHOS (test code = 0438964693) 77 U/L 34-122 ALT(SGPT) (test code = 3822959481) 64 U/L 9-51 H AST(SGOT) (test code = 3183687662) 59 U/L 13-40 H eGFR Calculation (Non-) (test code = 6485826427) mL/min/1.73m2 eGFR Calculation () (test code = 0249690754) mL/min/1.73m2 MIKEL (test code = MIKEL) Association [...] imaging tests). Lab Interpretation (test code = 69003-8) [facility]LIP[facility], [id number] 04:33:00* Test Item Value Reference Range Interpretation Comme nts LIPASE (test code = 0087379468) 126 U/L 0-220 Lab Interpretation (test cod e = 50609-4) Normal [facility]AL D[facility]-[id number] 04:32:00* Test Item Value Reference Range Interpretation Comme nts NT-proBNP (test code = 5128301252) 43 pg/mL See_Comment [Automated message] The system which generated this result transmitted reference range: <=125. The reference range was not used to interpret this result as normal/abnormal. MIKEL (test code = MIKEL) Biotin has been reported to cause a negative bias, interpret results relative to patient's use of biotin. Lab Interpretation (test code = 84732-7) [facility]2019-08-17 04:24:00* Test Item Value Reference Range Interpretation Comme nts APPEARANCE (test code = 8627900511) Slightly Cloudy Clear A COLOR (test code = 0658838919) Yellow Yellow PH (test code = 1229104911) 4.8-8.0 SP GRAVITY (test code = 5053968114) >=1.030 1.003-1.030 GLU U QUAL (test code = 9904105042) Negative Negative BLOOD (test code = 8336535082) Small Negative A KETONES (test code = 2335224058) Negative Negative PROTEIN (test code = 2887-8) Negative Negative UROBILIN (test code = 4168151703) 0.2 mg/dL See_Comment [Automated message] The system which generated this result transmitted reference range: 0-1.0 mg/dL. The reference range was not used to interpret this result as normal/abnormal. BILIRUBIN (test code = 5445825932) Negative Negative NITRITE (test code = 1463965569) Negative Negative LEUK ALEKSANDAR (test code = 9658117301) Small Negative A RBC/HPF (test code = 4145899959) See_Comment [Automated message] The system which generated this result transmitted reference range: 0 - 3 HPF. The reference range was not used to interpret this result as normal/abnormal. WBC/HPF (test code = 5882437803) See_Comment H [Automated message] The system which generated this result transmitted reference range: 0 - 5 HPF. The reference range was not used to interpret this result as normal/abnormal. BACTERIA (test code = 4711677929) Moderate Negative A SQ EPITH (test code = 9317205922) HPF Lab Interpretation (test code = 40272-2) [facility]normal [facility]PTT2019-08-17 04:16:00* Test Item Value Reference Range Interpretation Comme [facility] APTT Patient (test code = 3173-2) See_Comment [Automated message] The system which generated this result transmitted reference range: 23 - 38 Seconds. The reference range was not used to interpret this result as normal/abnormal. MIKEL (test code = MIKEL) The RUST patient population mean normal value for aPTT is 30 seconds. Lab Interpretation (test code = 70830-5) Normal [facility] HospitalPROTHROMBIN TIME / [id number] 04:14:00* Test Item Value Reference Range Interpretation Comme [facility] PROTIME PATIENT (test code = 5964-2) See_Comment [Automated [employer] The system which generated this result transmitted reference range: 12.0 - 14.7 Seconds. The reference range was not used to interpret this result as normal/abnormal. INR (test code = 6301-6) Normal INR <1.1; Warfarin Therapeutic range 2.0 to 3.0 or 2.5 to 3.5, depending upon the indications. Lab Interpretation (test code = 96982-3) Normal [facility] HospitalCBC WITH [id number] 04:04:00* Test Item Value Reference Range Interpretation Comme [facility] WBC (test code = 6690-2) See_Comment [Automated [employer]] The system which generated this result transmitted reference range: 4.30 - 11.10 10*3/?L. The reference range was not used to interpret this result as normal/abnormal. RBC (test code = 789-8) See_Comment H [Automated [employer] The system which generated this result transmitted [...] 33.1 g/dL 31.6-35.1 RDW-SD (test code = 09450-4) 42.7 fL 39-49.9 RDW-CV (test code = 788-0) 12.8 % 12-15.5 PLT (test code = 777-3) See_Comment [Automated messa ge] The system which generated this result transmitted reference range: 166 - 358 10*3/?L. The reference range was not used to interpret this result as normal/abnormal. MPV (test code = 71792-1) 10.9 fL 9.5-12.9 NRBC/100 WBC (test code = 8929806901) See_Comment [Automated [employer]] The system which generated this result transmitted reference range: 0.0 - 10.0 /100 WBCs. The reference range was not used to interpret this result as normal/abnormal. NRBC x10^3 (test code = 7332795844) <0.01 See_Comment [Automated messa ge] The system which generated this result transmitted reference range: 10*3/?L. The reference range was not used to interpret this result as normal/abnormal. GRAN MAT (NEUT) % (test code = 770-8) 59.7 % IMM GRAN % (test code = 3719174938) 0.70 % LYMPH % (test code = 736-9) 27.3 % MONO % (test code = 5905-5) 10.0 % EOS % (test code = 713-8) 1.6 % BASO % (test code = 706-2) 0.7 % GRAN MAT x10^3(ANC) (test code = 9244624072) 5.97 10*3/uL 1.88-7.09 IMM GRAN x10^3 (test code = 9248164594) 0.07 10*3/uL 0-0.06 H LYMPH x10^3 (test code = 731-0) 2.73 10*3/uL 1.32-3.29 MONO x10^3 (test code = 742-7) 1.00 10*3/uL 0.33-0.92 H EOS x10^3 (test code = 711-2) 0.16 10*3/uL 0.03-0.39 BASO x10^3 (test code = 704-7) 0.07 10*3/uL 0.01-0.07 Lab Interpretation (test code = 15925-7) Abnormal [facility] Notes Date/Time Note Provider Source 2024-06-22 08:30:00 [facility] Did member answer phone?: Yes Is the member available to discuss their ER stay in a quick 10 min phone call ?: YesWhat prompted you to go to the ED: The patient lost consciousness and fell , hit her tailbone and the back of her head.Do you feel you were able to get the care you needed?: YesDo you have any questions regarding your discharge instructions?: NoDischarged with new medications?: NoIs there anything you need help coordinating?: NoDo you have a follow-up appointment with your PCP scheduled (or have you seen the PCP since your most recent discharge)?: David we assist at all in scheduling that appointment?: No Rebecca Ferris [facility] 2024-06-21 22:32:43 Pt given printed and verbal discharge instructions regarding fall, injury of head, acute myofascial strain of lumbosacral region, encouraged hydration, 0 Prescriptions provided Pt verbalized understanding of instructions, pt awake alert oriented, resp reg unlabored, skin w/d, color appropriate for race, moves all ext well,pt encouraged to follow up with pcp. Advised to seek medical attention for new/prolonged/worsening of symptoms, Symptoms improved. No adverse reaction to meds given in ER noted upon discharge Awake, alert oriented, resp reg unlabored, skin w/d, pt leaving pushed in walker, in no apparent distress, Opal Casarez RN [facility] 2024-06-21 20:02:43 Pt c/o fall today earlier in the day at the [place] next door in the parking lot. Pt states " I didn't think I hit my head but now it feels swollen. I landed on my tailbone." Pt states " passing out" but unknown for how long. Pt was checked my EMS at scene, then drove herself home Delfina Weston RN [facility]
--- NOTE | 2024-06-26 12:29 | RAD REPORT ---
EXAM DESCRIPTION: CT - Head Brain Wo Cont - 06/26/2024 12:16 pm CLINICAL HISTORY: Trauma;Headache COMPARISON: No comparisons TECHNIQUE: Noncontrast head CT images were obtained without IV contrast. Multiplanar reformats were generated and reviewed. All CT scans are performed using dose optimization technique as appropriate and may include automated exposure control or mA/KV adjustment according to patient size. FINDINGS: No intracranial hemorrhage, mass, or edema. Midline structures are unremarkable. Normal ventricular caliber for age. Cantor-white matter differentiation is preserved, without evidence of acute infarct. No abnormal extra- axial fluid collections. Mastoid air cells and visualized portions of the paranasal sinuses are clear. No acute bony findings. Partially calcified high a midline frontal and right temporal scalp lesions, may represent sebaceous cysts. IMPRESSION: No evidence of an acute intracranial process.
[2024-06-26] MEDS ORDERED: PROMETHAZINE INJ 25 MG/ML AMP ONE (13:23)
[2024-06-26] MEDS ORDERED: ONDANSETRON 4 MG (ODT) TAB ONE (13:24)
[2024-06-26] MEDS ORDERED: KETOROLAC 30 MG/ML INJ ONE (13:24)
--- NOTE | 2024-06-26 13:46 | ER ---
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 11:45 Acuity: LILIAN 3 iw 11:49 Coronavirus screen: At this time, the client does not indicate any symptoms associated iw with coronavirus-19. Ebola Screen: No symptoms or risks identified at this time. Initial Sepsis Screen: Does the patient meet any 2 criteria? No. Patient's initial sepsis screen is negative. Does the patient have a suspected source of infection? No. Patient's initial sepsis screen is negative. Risk Assessment: Do you want to hurt yourself or someone else? Patient reports no desire to harm self or others. Onset of symptoms was June 21, 2024. 11:49 Method Of Arrival: Wheelchair iw Triage Assessment: 14:13 Pain:. ap3 Historical: - Allergies: 11:48 Demerol; iw 11:48 PENICILLINS; iw - PMHx: 11:48 diabetes mellitus; Hypertensive disorder; ruptured disc in neck and back; iw - PSHx: 11:48 Cholecystectomy; hysterectomy; knee; back X 3; neck; iw - Immunization history:: Adult Immunizations unknown. - Infectious Disease History:: Denies. - Social history:: Smoking status: unknown. Screenin:34 Abuse screen: Denies threats or abuse. Nutritional screening: No deficits noted. ap3 Tuberculosis screening: No symptoms or risk factors identified. 14:12 [facility] ED Fall Risk Assessment (Adult) History of falling in the last 3 months, ap3 including since admission Yes- single mechanical fall (1 pt) Confusion or Disorientation No (0 pts) Intoxicated or Sedated No (0 pts) Impaired Gait Yes (1 pt) Mobility Assist Device Used No (0 pt) Altered Elimination No (0 pt) Score/Fall Risk Level 0 - 2 = Low Risk Oriented to surroundings, Maintained a safe environment, Educated pt \T\ family on fall prevention, incl call for assistance when getting out of bed, Assessed \T\ reinforced patient's understanding of fall precautions, Hourly rounding (assess needs \T\ fall precautionary measures) done, Used ambulatory aids as needed (educated on \T\ assisted with), Used gait belt as appropriate. Assessment: 13:33 General: Appears in no apparent distress. Behavior is calm, cooperative, appropriate ap3 for age. Neuro: Level of Consciousness is awake, alert, obeys commands, Oriented to person, place, time, situation. Cardiovascular: Patient's skin is warm and dry. Respiratory: Airway is patent Respiratory effort is even, unlabored, Respiratory pattern is regular, symmetrical. GI: Reports nausea, vomiting. Vital Signs: 11:49 BP 125 / 67; Pulse 70; Resp 16; Temp 97.5; Pulse Ox 100% on R/A; iw 14:13 Pulse 67; Resp 17; Temp 97.7; Pulse Ox 100% ; ap3 ED Course: 11:26 Patient arrived in ED. as 11:28 Raegan Blanton MD is Attending Physician. sp3 11:31 Darryl Blanton DO is Private Physician. as 11:47 Triage completed. iw 11:49 Arm band placed on. iw 12:17 CT Head Brain wo Cont In Process Unspecified. EDMS 13:34 Patient has correct armband on for positive identification. Adult w/ patient. Provided ap3 Education on: medications prior to administration. 14:13 No provider procedures requiring assistance completed. Patient did not have IV access ap3 during this emergency room visit. Administered Medications: 13:33 Drug: Ketorolac IM 30 mg IM once Route: IM; Site: right deltoid; ap3 14:12 Follow up: Response: No adverse reaction; Pain is decreased ap3 13:33 Drug: Promethazine IM 12.5 mg IM once Route: IM; Site: left deltoid; ap3 14:12 Follow up: Response: No adverse reaction; Nausea is decreased ap3 13:33 Drug: Ondansetron Oral Disintegrating Tablet Oral Disintegrating Tablet 4 mg PO once ap3 Route: PO; 14:12 Follow up: Response: No adverse reaction ap3 Medication: 13:35 VIS not applicable for this client. ap3 Outcome: 13:45 Discharge ordered by . sp3 14:13 Discharged to home with family, ap3 14:13 Condition: good 14:13 Discharge instructions given to patient, Instructed on discharge instructions, follow up and referral plans. medication usage, Demonstrated understanding of instructions, follow-up care, medications, Prescriptions given X 2, 14:15 Discharge ordered by . sp3 14:17 Patient left the ED. 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
--- NOTE | 2024-06-26 13:46 | EDPHYS ---
Physician Documentation [facility] Name: Cynthia Brown Age: 73 yrs Sex: Female : 1950 Arrival Date: 06/26/2024 Time: 11:24 Bed DX3 Private MD: Harvinder [facility] ED Physician Raegan Blanton HPI: 06/26 12:41 This 73 yrs old Female presents to ER via Wheelchair with complaints of Fall Injury - 1 sp3 week ago, Dizziness. 12:41 73-year-old female with history of diabetes, hypertension, cervical and lumbar disc sp3 disease presents to the ED with headache and nausea for the past week worse today. Patient had a mechanical ground-level fall on June 21 for which she was seen at [facility] and had negative CT scans and subsequently discharged. Today she returns with the above symptoms. She denies any further trauma, new falls, vomiting only nausea, abdominal pain, chest pain, shortness of breath, rash, syncope, near syncope, or any other medical prodrome or symptoms, or any other signs or symptoms on ROS at this time.. Historical: - Allergies: 11:48 Demerol; iw 11:48 PENICILLINS; iw - PMHx: 11:48 diabetes mellitus; Hypertensive disorder; ruptured disc in neck and back; iw - PSHx: 11:48 Cholecystectomy; hysterectomy; knee; back X 3; neck; iw - Immunization history:: Adult Immunizations unknown. - Infectious Disease History:: Denies. - Social history:: Smoking status: unknown. ROS: 12:42 Constitutional: Negative for fever, chills, and weight loss, Eyes: Negative for injury, sp3 pain, redness, and discharge, ENT: Negative for injury, pain, and discharge, Neck: Negative for injury, pain, and swelling, Cardiovascular: Negative for chest pain, palpitations, and edema, Respiratory: Negative for shortness of breath, cough, wheezing, and pleuritic chest pain, Back: Negative for injury and pain, MS/Extremity: Negative for injury and deformity, Skin: Negative for injury, rash, and discoloration, Psych: Negative for depression, anxiety, suicide ideation, homicidal ideation, and hallucinations, Allergy/Immunology: Negative for hives, rash, and allergies, Endocrine: Negative for neck swelling, polydipsia, polyuria, polyphagia, and marked weight changes, 12:42 All other systems are negative, Exam: 12:42 Constitutional: This is a well developed, well nourished patient who is awake, alert, sp3 and in no acute distress. Head/Face: Normocephalic, atraumatic. Eyes: Pupils equal round and reactive to light, extra-ocular motions intact. Lids and lashes normal. Conjunctiva and sclera are non-icteric and not injected. Cornea within normal limits. Periorbital areas with no swelling, redness, or edema. ENT: Nares patent. No nasal discharge, no septal abnormalities noted. External auditory canals are clear. Oropharynx with no redness, swelling, or masses, exudates, or evidence of obstruction, uvula midline. Mucous membranes moist. Neck: Trachea midline, no thyromegaly or masses palpated, and no cervical lymphadenopathy. Supple, full range of motion without nuchal rigidity, or vertebral point tenderness. No Meningismus. Chest/axilla: Normal chest wall appearance and motion. Nontender with no deformity. No lesions are appreciated. Cardiovascular: Regular rate and rhythm with a normal S1 and S2. No gallops, murmurs, or rubs. Normal PMI, no JVD. No pulse deficits. Respiratory: Lungs have equal breath sounds bilaterally, clear to auscultation and percussion. No rales, rhonchi or wheezes noted. No increased work of breathing, no retractions or nasal flaring. Abdomen/GI: Soft, non-tender, with normal bowel sounds. No distension or tympany. No guarding or rebound. No evidence of tenderness throughout. Back: No spinal tenderness. No costovertebral tenderness. Full range of motion. Skin: Warm, dry with normal turgor. Normal color with no rashes, no lesions, and no evidence of cellulitis. MS/ Extremity: Pulses equal, no cyanosis. Neurovascular intact. Full, normal range of motion. Neuro: Awake and alert, GCS 15, oriented to person, place, time, and situation. Cranial nerves II-XII grossly intact. Motor strength 5/5 in all extremities. Sensory grossly intact. Cerebellar exam normal. Normal gait. Psych: Awake, alert, with orientation to person, place and time. Behavior, mood, and affect are within normal limits. Vital Signs: 11:49 BP 125 / 67; Pulse 70; Resp 16; Temp 97.5; Pulse Ox 100% on R/A; iw 14:13 Pulse 67; Resp 17; Temp 97.7; Pulse Ox 100% ; ap3 MDM: 12:02 Patient medically screened. sp3 12:43 Data reviewed: vital signs, nurses notes, radiologic studies. ED course: 73-year-old sp3 female with PMH above now with continued headache and nausea after head injury 5 days ago. Differential diagnosis includes unresolved headache from trauma, postconcussive syndrome, nonspecific headache, among others. CT scan of the head is negative and vital signs are normal. Neurological exam is also normal. At this time we will treat symptoms with ketorolac IM, Phenergan IM and ondansetron ODT. If p.o. challenge successful, we will safely discharge patient home on similar meds. If negative or patient gets worse, we will consider further workup as indicated.. 06/26 12:03 Order name: CT Head Brain wo Cont; Complete Time: 12:31 sp3 06/26 12:40 Order name: PO challenge: 15 mins after meds; Complete Time: 14:02 sp3 Administered Medications: 13:33 Drug: Ketorolac IM 30 mg IM once Route: IM; Site: right deltoid; ap3 14:12 Follow up: Response: No adverse reaction; Pain is decreased ap3 13:33 Drug: Promethazine IM 12.5 mg IM once Route: IM; Site: left deltoid; ap3 14:12 Follow up: Response: No adverse reaction; Nausea is decreased ap3 13:33 Drug: Ondansetron Oral Disintegrating Tablet Oral Disintegrating Tablet 4 mg PO once ap3 Route: PO; 14:12 Follow up: Response: No adverse reaction ap3 Disposition Summary: 06/26/24 14:15 Discharge Ordered Notes: Location: Home(06/26/24 14:15) sp3 Condition: Stable(06/26/24 14:15) sp3 Diagnosis - Postconcussive headache sp3 Followup: sp3 - With: Private Physician - When: Upon discharge from the Emergency Department - Reason: Continuance of care Discharge Instructions: - Discharge Summary Sheet sp3 - Post-Concussion Syndrome sp3 Forms: - Medication Reconciliation Form sp3 - Antibiotic Education sp3 - Prescription Opioid Use sp3 - Patient Portal Instructions sp3 - Leadership Thank You Letter sp3 Prescriptions: - Diclofenac Sodium 75 mg Oral Tablet Sustained Release - take 1 tablet ORAL route 2 times per day; 30 tablet; Refills: 0, Product sp3 Selection Permitted - ondansetron 8 mg Oral Tablet,disintegrating - take 1 tablet ORAL route every 12 hours; 20 tablet; Refills: 0, Product sp3 Selection Permitted Signatures: Dispatcher [employer] Fatimah Valero RN RN iw Nicole Wells RN RN ap3 Raegan Blanton MD MD sp3 Corrections: (The following items were deleted from the chart) 11:49 11:48 PMHx: Hypertensive disorder; iw iw 14:13 13:45 Home sp3 ap3 14:13 13:45 Stable sp3 ap3 14:13 13:45 Postconcussion headache sp3 ap3
[2024-06-26 14:25] VITALS: BP 125/67; O2SAT 100
[2024-06-26 14:27] VITALS: TEMP 97.7
== END 2024-06-26 14:17 | disposition home or self-care (01) ==
LOC: ER 11:24
DX: G44.89 Other headache syndrome (principal); R11.0 Nausea
CPT/HCPCS: 70450; J2550; Q0162; 96372; 99284